=== PATIENT | female | born 1935 | race Caucasian/White ===

== ENCOUNTER 2019-11-23 09:40 | Emergency (ER) | payer MEDICARE, SELFPAY ==
[2019-11-23 10:00] VITALS: BP 152/60; PULSE 73; RESP 20; TEMP 36.8; O2SAT 98
--- NOTE | 2019-11-23 10:19 | ED.GENADULT ---
HPI - General Adult General Chief complaint: Upper Respiratory Infection Stated complaint: COUGH/CONGESTION Time Seen by Provider: 11/23/19 10:19 Source: patient and RN notes reviewed Mode of arrival: ambulatory Limitations: no limitations History of Present Illness HPI narrative: This is a 84 years old female presents to the office for an evaluation of cough and congestion for three weeks. Cough is very bothersome with chest tightness and thick mucus. Denies fever; however she reports feeling malaise and tired. Also reports she can't taste any food. She did not take any medication for her symptoms except Tylenol. She lives in an [facility] group home. Related Data Home Medications Medication Instructions Recorded Confirmed insulin glargine [Lantus Solostar 13 unit SUB-Q DAILY 11/23/19 11/23/19 U-100 Insulin] irbesartan 300 mg PO DAILY 11/23/19 11/23/19 latanoprost 1 drp OPHTHALMIC (EYE) HS 11/23/19 11/23/19 oxybutynin chloride 5 mg PO DAILY 11/23/19 11/23/19 pravastatin 10 mg PO DAILY 11/23/19 11/23/19 torsemide 50 mg PO QAM 11/23/19 11/23/19 Allergies Allergy/AdvReac Type Severity Reaction Status Date / Time ciprofloxacin Allergy Unknown Anxiety Verified 11/23/19 09:53 dexamethasone Allergy Unknown Anxiety Verified 11/23/19 09:53 hydrochlorothiazide Allergy Unknown Anxiety Verified 11/23/19 09:53 triamterene Allergy Unknown Anxiety Verified 11/23/19 09:53 Review of Systems Review of Systems: Narrative: CONSTITUTIONAL: Denies fever ENT: Symptoms began with head congestion; but not currently CARDIOVASCULAR: Denies chest pain RESPIRATORY: Reports cough with chest tightness on exertion GASTROINTESTINAL: Denies abdominal pain, nausea, vomiting GENITOURINARY: Denies urinary symptoms SKIN: Denies rash MUSCULOSKELETAL: Denies acute back pain NEUROLOGIC: Denies lightheaded. 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 Lumbar pain with radiation down right leg Mixed hyperlipidemia Nonrheumatic aortic (valve) stenosis Osteoporosis Post menopausal problems Type 2 diabetes mellitus with diabetic polyneuropathy Type 2 diabetes mellitus without complication, with senior living current use of insulin pump Family History Family History Grandparent Diabetes mellitus Father Hypertension Cerebrovascular accident Mother Family history of arthritis Acute myocardial infarction, Onset Age: 84 Other Family history of hearing loss Family history of osteoporosis Social History Social History Smoking status: Never smoker Second hand tobacco smoke exposure: No Smoking end date: 10/08/1957 Alcohol intake: current Comments At time of signature, I agree with nursing past medical, surgical, social and family history. There is no relevant family history pertinent to the presenting complaint. Exam Narrative: Exam Narrative: GENERAL: This is a well-nourished, well-developed patient, in no apparent distress. HEAD: normocephalic, atraumatic. EARS: External ears normal, auditory canals clear and without drainage, TMs normal without perforation. Hearing grossly intact. NOSE: External nose normal with no obvious nasal discharge, nares without redness, no rhinorrhea. THROAT: Mucous membranes moist, posterior pharynx clear. NECK: Neck supple, non-tender without lymphadenopathy, masses or thyromegaly. CARDIOVASCULAR: Regular rate and rhythm without murmurs, gallops, or rubs. RESPIRATORY: Course breath sound noted throughout with cough during deep breathing. Breath sounds equal bilaterally. No wheezes or use of accessory muscle. GASTROINTESTINAL: Abdomen soft, non-tender, nondistended. Bowel sounds are active. No hepato-splenomegaly, or palp
== END 2019-11-23 10:37 | disposition home or self-care (01) ==
PROVIDERS: Emergency Provider Nurse Practitioner; PCP Family Medicine
DX: J06.9 Acute upper respiratory infection, unspecified (principal); I10 Essential (primary) hypertension; R01.1 Cardiac murmur, unspecified; Z85.3 Personal history of malignant neoplasm of breast; E78.2 Mixed hyperlipidemia; M81.0 Age-related osteoporosis without current pathological fracture; E11.42 Type 2 diabetes mellitus with diabetic polyneuropathy; Z96.41 Presence of insulin pump (external) (internal); Z79.4 Long term (current) use of insulin
CPT/HCPCS: 99213; G0463

== ENCOUNTER 2019-12-08 12:23 | Outpatient (CLI) | payer MEDICARE, SELFPAY ==
--- NOTE | 2019-12-08 | ECHO_ITS ---
Patient Info Name: Sophia Webster Age: 84 years : 1935 Gender: Female Ht: 65 in Wt: 170 lbs BSA: 1.90 m2 HR: 61 bpm BP: 168 / 75 mmHg Heart Rhythm: Sinus Rhythm Exam Date: 12/08/2019 1:55 PM Exam Location: [facility] Patient Status: Outpatient Admit Date: 12/08/2019 Staff Ordering Physician: Jaun Winters DO Collection Clerk: Lashanda Kim RDCS Attending Provider: Jaun Winters DO Referring Physician: Singh MAGANA; Exam Type: CA echo doppler color flow Study Info Indications I35.0 - Nonrheumatic aortic (valve) stenosis Complete two-dimensional, color flow and Doppler transthoracic echocardiogram is performed. Summary 1. Left ventricular chamber dimension is normal. 2. Left ventricular systolic function is normal, estimated at 65-70%. 3. There is moderately increased left ventricular wall thickness. 4. The left ventricular diastolic function is grade I diastolic dysfunction. 5. Left atrial chamber dimension is mildly enlarged. 6. There is severe aortic valve sclerosis. 7. There is moderate aortic valve stenosis with a peak velocity of 329 cm/s, mean gradient of 22 mmHg, and aortic valve area of 1.1 cm2. 8. The mitral valve has moderately calcified annulus. 9. There is trace tricuspid valve regurgitation. 10. Moderate pulmonary hypertension, estimated pulmonary arterial systolic pressure is 54 mmHg. 11. There is trace pulmonic regurgitation. Left Ventricle Left ventricular chamber dimension is normal. Left ventricular systolic function is normal, estimated at 65-70%. There is moderately increased left ventricular wall thickness. The left ventricular diastolic function is grade I diastolic dysfunction. Right Ventricle Right ventricular chamber dimension is normal. Right ventricular systolic function is normal. Left Atria Left atrial chamber dimension is mildly enlarged. Right Atria Right atrial chamber dimension is normal. Aortic Valve The aortic valve is probable trileaflet. There is severe aortic valve sclerosis. There is moderate aortic valve stenosis with a peak velocity of 329 cm/s, mean gradient of 22 mmHg, and aortic valve area of 1.1 cm2. There is no aortic valve regurgitation. Pulmonic Valve There is trace pulmonic regurgitation. Mitral Valve The mitral valve has moderately calcified annulus. There is no mitral valve stenosis. There is no mitral valve regurgitation. Tricuspid Valve There is trace tricuspid valve regurgitation. Moderate pulmonary hypertension, estimated pulmonary arterial systolic pressure is 54 mmHg. Pericardium/Pleural There is no pericardial effusion. Inferior Vena Cava Normal inferior vena cava with >50% collapse upon inspiration consistent with normal right atrial pressure, 5 mmHg. Aorta The aortic root size at the sinus of Valsalva is normal. Left Ventricular Outflow Tract Name Value Normal LVOT 2D LVOT Diameter 1.7 cm LVOT Doppler LVOT Peak Gradient 7 mmHg LVOT Mean Gradient 4 mmHg LVOT VTI 33 cm LVOT VTI/AV VTI Ratio 0.4
== END 2019-12-08 12:24 | disposition home or self-care (01) ==
PROVIDERS: PCP Family Medicine; Visit Provider Internal Medicine Cardiovascular Disease
DX: I08.3 Combined rheumatic disorders of mitral, aortic and tricuspid valves (principal)
CPT/HCPCS: 93306

== ENCOUNTER 2020-03-25 11:07 | Outpatient (CLI) | payer MEDICARE, SELFPAY ==
[2020-03-25 11:49] LABS: Alanine Aminotransferase 20 U/L (4-35); Albumin Level 4.1 g/dL (3.5-5.1); Alkaline Phosphatase 69 U/L (38-126); Aspartate Amino Transferase 28 U/L (14-36); Bilirubin,Total 0.4 mg/dL (0.2-1.3); Blood Urea Nitrogen 60 mg/dL (7-17); Carbon Dioxide 33 mmol/L (22-30); Chloride 99 mmol/L (98-107); Estimated Glomerular Filt Rate 22; Glucose 137 mg/dL (65-105); Potassium 4.5 mmol/L (3.4-5.0); Sodium 137 mmol/L (137-145)
== END 2020-03-25 11:08 | disposition home or self-care (01) ==
LOC: ANHLAB 11:10
PROVIDERS: PCP Family Medicine; Visit Provider Internal Medicine Cardiovascular Disease
DX: E78.2 Mixed hyperlipidemia (principal)
CPT/HCPCS: 36415; 80053

== ENCOUNTER 2020-06-11 09:02 | Outpatient (CLI) | payer MEDICARE, SELFPAY ==
[2020-06-11 09:16] LABS: Basophils Percent Auto 0.6 % (0.2-1.2); Eosinophils Absolute Auto 0.2 K/mm3 (0-0.3); Eosinophils Percent Auto 2.6 % (0-4.4); Hematocrit 40.7 % (37.0-47.0); Immature Granulocyte Absolute 0.03 K/mm3 (0.00-0.031); Immature Granulocyte Percent A 0.5 % (0-0.5); Lymphocytes Absolute Auto 1.21 K/mm3 (0.9-3.2); Lymphocytes Percent Auto 18.5 % (18.3-44.2); Mean Corpuscular HGB Conc 31.9 g/dl (32-36); Mean Corpuscular Hemoglobin 28.3 pg (26-34); Mean Corpuscular Volume 88.5 fl (80-100); Mean Platelet Volume 10.3 fl (7.4-10.4); Monocytes Absolute Auto 0.6 K/mm3 (0.1-0.6); Monocytes Percent Auto 9.8 % (2.6-8.5); Neutrophils Absolute Auto 4.4 K/mm3 (1.3-6.7); Platelet Count Result 212 k/mm3 (150-375); Red Cell Distribution Width 14.5 % (11.5-14.5); White Blood Count 6.5 K/mm3 (4.5-10.0)
[2020-06-11 09:27] LABS: Potassium 4.3 mmol/L (3.4-5.0)
[2020-06-11 09:31] LABS: Alanine Aminotransferase 19 U/L (4-35); Alkaline Phosphatase 69 U/L (38-126); Anion Gap 5 mmol/L (8-16); Aspartate Amino Transferase 28 U/L (14-36); Bilirubin,Total 0.6 mg/dL (0.2-1.3); Blood Urea Nitrogen 58 mg/dL (7-17); Calcium 10.4 mg/dL (8.4-10.2); Carbon Dioxide 32 mmol/L (22-30); Chloride 100 mmol/L (98-107); Cholesterol 172 mg/dL (0-200); Estimated Glomerular Filt Rate 25; Glucose 130 mg/dL (65-105); HDL Direct 60 mg/dL; Sodium 137 mmol/L (137-145); Triglycerides 97 mg/dL (<150)
[2020-06-11 09:36] LABS: NT Pro B Type Natriuretic Pept 1570 PG/ML (5-100)
[2020-06-11 09:39] LABS: LDL Cholesterol Direct 67 mg/dL
[2020-06-11 10:13] LABS: Vitamin D 25 Hydroxy 43.6 ng/mL
== END 2020-06-11 09:03 | disposition home or self-care (01) ==
LOC: ANHLAB 09:02
PROVIDERS: PCP Family Medicine; Visit Provider Nurse Practitioner
DX: R06.02 Shortness of breath (principal); I10 Essential (primary) hypertension; E78.5 Hyperlipidemia, unspecified; E55.9 Vitamin D deficiency, unspecified
CPT/HCPCS: 36415; 80053; 80061; 82306; 83880; 85025

== ENCOUNTER 2020-06-15 12:03 | Outpatient (CLI) | payer MEDICARE, SELFPAY ==
[2020-06-15 12:49] LABS: NT Pro B Type Natriuretic Pept 1300 PG/ML (5-100)
== END 2020-06-15 12:04 | disposition home or self-care (01) ==
LOC: ANHLAB 12:06
PROVIDERS: PCP Family Medicine; Visit Provider Nurse Practitioner
DX: R06.00 Dyspnea, unspecified (principal)
CPT/HCPCS: 36415; 83880

== ENCOUNTER 2020-07-08 09:02 | Outpatient (CLI) | payer MEDICARE, SELFPAY ==
--- NOTE | ~2020-07-08 | NM_ITS ---
EXAMINATION: NM jaun stress w perfusion DATE: 07/08/2020 12:00 INDICATION: Chest pain. TECHNIQUE: Rest images were obtained following intravenous administration of 9.2 mCi Tc99m tetrofosmi n (Myoview). The patient was infused intravenously with Lexiscan (regadenoson). Then, 28.3 mCi Tc99m tetrofosmin (Myoview) was administered intravenously, and stress images were obtained. Data was recon structed into short axis and horizontal and vertical long axis SPECT images. Gated SPECT images were also obtained. COMPARISON: None. FINDINGS: There is a small, mild, fixed perfusion defect involving mid to basal inferolateral wall of left ventricle, consistent with infarct. No reversible component to suggest ischemia. There is no s egmental wall motion abnormality. Left ventricular ejection fraction measures 60%. IMPRESSION: 1. Small area of mild infarct involving mid to basal inferolateral wall of left ventricle. 2. Normal left ventricular ejection fraction measuring 60%. Reviewed, dictated and finalized at location A.
--- NOTE | 2020-07-08 09:34 | EST_ITS ---
Patient Info Name: Sophia Webster Age: 85 years : 1935 Gender: Female Ht: 65 in Wt: 175 lbs BSA: 1.93 m2 Exam Date: 07/08/2020 10:34 AM Exam Location: [facility] Stress Patient Status: Outpatient Admit Date: 07/08/2020 Staff Ordering Physician: Jaun Winters DO Attending Provider: Jaun Winters DO Exercise Technologist: Sofie Murcia RDCS Exercise Physician: Jaun Winters DO Exam Type: CA stress jaun w NM Study Info Indications R07.89 - Other chest pain R06.02 - Shortness of breath A regadenoson stress test was performed. Summary 1. 1. Negative lexiscan stress test for ischemic ST changes by ECG criteria. 2. 2. Baseline hypertension. 3. 3. Nuclear scan to follow and will be reported separately. Please correlate with it. 4. 4. Patient informed of the above results. Protocol: Lexiscan Stress ECG Details Stage: REST Duration (min): 10 min : 42 sec HR (bpm): 75 SBP (mmHg): 204 DBP (mmHg): 98 Stage: REST Duration (min): 21 min : 59 sec HR (bpm): 78 SBP (mmHg): 204 DBP (mmHg): 98 Stage: STAGE 1 Duration (min): 1 min : 0 sec HR (bpm): 100 SBP (mmHg): 218 DBP (mmHg): 85 Stage: RECOVERY Duration (min): 1 min : 0 sec HR (bpm): 97 SBP (mmHg): 195 DBP (mmHg): 91 Stage: RECOVERY Duration (min): 2 min : 0 sec HR (bpm): 92 SBP (mmHg): 195 DBP (mmHg): 91 Stage: RECOVERY Duration (min): 3 min : 0 sec HR (bpm): 91 SBP (mmHg): 185 DBP (mmHg): 95 Stage: RECOVERY Duration (min): 4 min : 0 sec HR (bpm): 90 SBP (mmHg): 185 DBP (mmHg): 95 Stage: RECOVERY Duration (min): 4 min : 56 sec HR (bpm): 97 SBP (mmHg): 189 DBP (mmHg): 92 Rest HR: 78 bpm Peak HR: 103 bpm Rest Sys BP: 204 mmHg Peak Sys BP: 218 mmHg Max Pred HR: 135 bpm % Max Pred HR: 76 % Target HR: 115 bpm Max RPP: 22,454 bpm*mmHg Termination Reason: Completed protocol Cardiac Symptoms: Shortness of breath, Headache Total Time: 1 min : 0 sec Rest Cano BP: 98 mmHg Peak Cano BP: 85 mmHg Total Dose: 0.4 mg Resting ECG Sinus rhythm, anteroseptal infarct, inferior infarct, age indeterminate. Stress ECG No ST changes. Arrhythmias PAC's. Report Signatures
== END 2020-07-08 09:03 | disposition home or self-care (01) ==
PROVIDERS: PCP Family Medicine; Visit Provider Internal Medicine Cardiovascular Disease
DX: R06.02 Shortness of breath (principal); R07.89 Other chest pain; I10 Essential (primary) hypertension
CPT/HCPCS: 78452; 93017; A9502; J2785

== ENCOUNTER 2020-08-11 10:19 | Outpatient (CLI) | payer MEDICARE, SELFPAY ==
--- NOTE | ~2020-08-11 | XR_ITS ---
EXAMINATION: XR lumbar spine 2-3V DATE: 08/11/2020 10:50 INDICATION: Low back pain TECHNIQUE: Anteroposterior and lateral views of the lumbar spine, and cone-down lateral view of the l umbosacral junction were obtained. COMPARISON: None. FINDINGS: There are 5 mm of retrolisthesis L2 on L3, 8 mm of anterolisthesis of L4 on L5, and 4 mm of anterolisthesis of L5 on S1. The vertebral body heights are maintained. There is advanced loss of in tervertebral disc space height at L2-3, L4-5, and L5-S1. Moderate loss of intervertebral disc space h eight is seen at L3-4. No fracture is identified. Degenerative osteophytes project from the anterior endplates of multiple vertebral bodies. There is calcified atherosclerosis. A moderate volume of colo darline stool is noted. IMPRESSION: 1. Severe lumbar spondylosis without evidence of acute findings. Reviewed, dictated and finalized at location A. ORK ARCHITECT
== END 2020-08-11 10:20 | disposition home or self-care (01) ==
LOC: ANHIMG 10:26
PROVIDERS: PCP Family Medicine; Visit Provider Nurse Practitioner Family
DX: M47.896 Other spondylosis, lumbar region (principal)
CPT/HCPCS: 72100

== ENCOUNTER 2020-08-15 08:11 | Emergency (ER) | payer MEDICARE, SELFPAY ==
[2020-08-15 08:08] VITALS: BP 184/92; PULSE 89; RESP 18; TEMP 36.8; O2SAT 96
[2020-08-15 08:36] LABS: Basophils Percent Auto 0.2 % (0.2-1.2); Hematocrit 40.3 % (37.0-47.0); Hemoglobin 13.2 g/dL (12.0-15.0); Immature Granulocyte Absolute 0.09 K/mm3 (0.00-0.031); Immature Granulocyte Percent A 0.7 % (0-0.5); Lymphocytes Absolute Auto 0.67 K/mm3 (0.9-3.2); Lymphocytes Percent Auto 5.2 % (18.3-44.2); Mean Corpuscular HGB Conc 32.8 g/dl (32-36); Mean Corpuscular Hemoglobin 28.3 pg (26-34); Mean Corpuscular Volume 86.3 fl (80-100); Mean Platelet Volume 10.3 fl (7.4-10.4); Monocytes Absolute Auto 0.8 K/mm3 (0.1-0.6); Monocytes Percent Auto 5.9 % (2.6-8.5); Neutrophils Absolute Auto 11.3 K/mm3 (1.3-6.7); Platelet Count Result 259 k/mm3 (150-375); Red Blood Count 4.67 M/mm3 (4.2-5.4); Red Cell Distribution Width 14.4 % (11.5-14.5); White Blood Count 12.9 K/mm3 (4.5-10.0)
[2020-08-15 08:46] LABS: Alanine Aminotransferase 21 U/L (4-35); Albumin Level 3.7 g/dL (3.5-5.1); Alkaline Phosphatase 99 U/L (38-126); Anion Gap 12 mmol/L (8-16); Aspartate Amino Transferase 29 U/L (14-36); Bilirubin,Total 0.7 mg/dL (0.2-1.3); Blood Urea Nitrogen 60 mg/dL (7-17); Calcium 9.9 mg/dL (8.4-10.2); Carbon Dioxide 28 mmol/L (22-30); Chloride 97 mmol/L (98-107); Estimated CRCL calculation 19 ml/min; Estimated Glomerular Filt Rate 24; Glucose 235 mg/dL (65-105); Lipase 34 U/L (23-300); Sodium 137 mmol/L (137-145)
[2020-08-15 08:52] VITALS: BP 182/75; PULSE 74; RESP 18; O2SAT 98
[2020-08-15 09:36] LABS: Add Urine Microscopic? YES; Appearance Urine Turbid (Clear); Bacteria Urine 2+ /hpf; Bilirubin Urine Negative (Negative); Blood Urine 1+ (Negative); Color Urine Yellow (Yellow); Glucose Urine UA Negative (Negative); Ketones Urine Trace mg/dL (Negative); Leukocyte Esterase Ur 3+ LEU/UL (Negative); Mucus Urine Rare /lpf; Nitrate Urine Negative (Negative); Protein Urine 1+ mg/dL (Negative); Specific Grav Ur 1.013 (1.001-1.035); Squamous Epithelial Cell Urine Many /hpf (Few); Urobilinogen Urine Negative mg/dL (<2.0); WBC Clumps Urine Present /HPF; WBC Urine >75 /hpf
[2020-08-15 10:25] VITALS: BP 183/80; PULSE 79; RESP 18; O2SAT 100
--- NOTE | 2020-08-15 10:31 | ED.ABDPAIN ---
HPI - Abdominal Pain General Chief Complaint: Abdominal Pain Stated Complaint: abd pain Time Seen by Provider: 08/15/20 08:19 History of Present Illness HPI narrative: Patient is an 85-year-old female who presents ER with crampy lower abdominal pain. Began 5 days ago and has increased to include her entire abdomen. Associate with some mild nausea and vomiting. Last vomiting was this morning. Also had 1 loose stool. Reports she had issues like this several years ago where she may have had Crohn's but she has never had any additional issues and she had stopped taking the medication 18 years ago. She reporting no fevers or chills or sweats. Related Data Home Medications Medication Instructions Recorded Confirmed latanoprost 1 drp OPHTHALMIC (EYE) HS 11/23/19 06/08/20 insulin lispro 100 unit/mL See Rx Instructions .ROUTE .COMPLEX 12/20/19 06/08/20 subcutaneous pen calcium carbonate-vit D3-min 1 tablet PO BID 08/15/20 [Calcium-Vitamin D] coenzyme Q10 [Co Q-10] 20 mg PO ONCE 08/15/20 insulin glargine [Lantus Solostar 13 unit SUB-Q QPM 08/15/20 U-100 Insulin] polyethylene glycol 3350 [Miralax] 17 g PO DAILY 08/15/20 torsemide 200 mg PO BID 08/15/20 Allergies Allergy/AdvReac Type Severity Reaction Status Date / Time ciprofloxacin Allergy Unknown Anxiety Verified 08/15/20 08:15 dexamethasone Allergy Unknown Anxiety Verified 08/15/20 08:15 hydrochlorothiazide Allergy Unknown Anxiety Verified 08/15/20 08:15 triamterene Allergy Unknown Anxiety Verified 08/15/20 08:15 Review of Systems Review of Systems: All systems reviewed & are unremarkable except as noted in HPI and below Constitutional: Constitutional: Denies chills, Denies fever(s) and Denies weakness ENT: Denies nasal congestion and Denies sore throat Cardiovascular: Cardiovascular: Denies chest pain Gastrointestinal: Gastrointestinal: Reports abdominal pain, Reports bloating, Reports diarrhea, Reports nausea and Reports vomiting PMFSH Past Medical History Medical History (Updated 08/15/20 @ 11:27 by Shailesh Tate MD) Heart murmur 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 Lumbar pain with radiation down right leg Mixed hyperlipidemia Nonrheumatic aortic (valve) stenosis Osteoporosis Overflow incontinence Post menopausal problems Type 2 diabetes mellitus with diabetic polyneuropathy Type 2 diabetes mellitus without complication, with detention current use of insulin pump Family History Family History Grandparent Diabetes mellitus Father Hypertension Cerebrovascular accident Mother Family history of arthritis Acute myocardial infarction, Onset Age: 84 Other Family history of hearing loss Family history of osteoporosis Social History Social History Smoking status: Never smoker Second hand tobacco smoke exposure: No Alcohol intake: current Substance use: never Gender identity (if verbalized by the patient): Female Spiritual care concerns: No Agree to blood products: Yes Exam Narrative: Exam Narrative: GENERAL: Well-appearing, well-nourished, and in no acute distress. HEAD: Normocephalic, atraumatic. ENT: Mucous membranes moist. CHEST: Clear to auscultation. No respiratory distress. HEART: Regular rate and rhythm. Normal peripheral pulses. ABDOMEN: Soft, nontender, nondistended. EXTREMITIES: Normal range of motion. No edema. NEURO: Alert and oriented x3. PSYCH: Normal mood and affect. Course Course Emergency Course: Informed of results. Hydrated with IV fluid and received ceftriaxone IV. Discharge home with oral antibiotics. Also will prescribe antiemetics. Vital Signs Vital signs: Vital Signs Temperature 98.3 F 08/15/20 08:08 Pulse Rate 89 08/15/20 08:08 Respiratory Rate 18 08/15/20 08:08 Blood Pressure 184/92 H 08/15/20 08:08 Pulse Oximetry 96
[2020-08-15] MEDS: SODIUM CHLORIDE 0.9% IV 1,000 ML 999 ML IV CONT (11:12)
[2020-08-15 11:19] VITALS: BP 181/67; PULSE 80; RESP 18; O2SAT 97
[2020-08-15 12:19] VITALS: BP 185/78; PULSE 76; RESP 18; O2SAT 95
== END 2020-08-15 12:21 ==
PROVIDERS: Emergency Provider Emergency Medicine; PCP Family Medicine
DX: N39.0 Urinary tract infection, site not specified (principal); E11.42 Type 2 diabetes mellitus with diabetic polyneuropathy; Z79.4 Long term (current) use of insulin; Z85.3 Personal history of malignant neoplasm of breast; E78.2 Mixed hyperlipidemia; M81.0 Age-related osteoporosis without current pathological fracture; I35.0 Nonrheumatic aortic (valve) stenosis
CPT/HCPCS: 36415; 80053; 81001; 83690; 85025; 87077; 87086; 87088; 87186; 96361; 96365; 99284; J0696; J7030

== ENCOUNTER 2020-08-19 16:55 | Inpatient (IN) | payer MEDICARE, SELFPAY ==
--- NOTE | ~2020-08-19 | CT_ITS ---
EXAMINATION: CT abdomen pelvis wo con DATE: 08/19/2020 18:14 INDICATION: Abdominal pain TECHNIQUE: Computed tomography (CT) of the abdomen and pelvis was performed without intravenous contr ast. Automated exposure control and iterative reconstruction technique were employed. Exam dose: 646 .38 mGy-cm total exam DLP. COMPARISON: 08/25/2019, 08/21/2018 bilateral digital screening mammogram examinations FINDINGS: There is mild discoid atelectasis and/or scarring at the lung bases. There is a 5.5 cm right breast mass lesion; this is reportedly stable since 07/06/2016, likely a benig n postoperative seroma. Normal heart size. Coronary artery calcification Very small sliding hiatal hernia. There are multiple small stones in the dependent aspect of the gallbladder. No gallbladder wall thick ening or pericholecystic fluid or inflammation. The liver, spleen, pancreas are unremarkable. No bile duct or pancreatic duct dilatation. 1.6 x 2.2 cm probable right adrenal adenoma. 5 cm upper pole left renal cyst. Probable 11 mm lateral mid left renal cyst. 2.5 mm and adjacent pinpoint nonobstructing left renal calculi. There is moderate diffuse urinary bladder wall thickening. Status post hysterectomy. There is prominent fecal material in the rectosigmoid area. No bowel obstruction, bowel wall thickening or pneumoperitoneum. There is atherosclerotic calcification of the abdominal aorta and branches. No abdominal aortic aneur ysm. No intraperitoneal or retroperitoneal or pelvic mass lesion or adenopathy or ascites. There is degenerative change of the thoracic and lumbar spine, including severe degenerative disc dis ease and mild retrolisthesis at L2-3, moderately severe degenerative disc disease lumbar at L3-4 and L4-5, grade 1 anterolisthesis at L4-5. There is moderately severe degenerative disc disease and grade 1 anterolisthesis at L5-S1. IMPRESSION: Chronic right breast seroma Cholelithiasis Probable right adrenal adenoma Bilateral renal cysts 2.5 mm and adjacent pinpoint nonobstructing left renal calculi Status post hysterectomy Extensive degenerative changes of the lumbar spine show Reviewed, dictated and finalized at [facility]. Reviewed, dictated and finalized at [facility]. 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
--- NOTE | ~2020-08-19 | XR_ITS ---
EXAMINATION: XR abdomen/kub 1V INDICATION: Abdominal distention TECHNIQUE: Supine views of the abdomen were obtained on 2 radiographs. COMPARISON: CT, 08/19/2020 FINDINGS: There is unchanged large volume of stool in the rectum. No dilated loops of bowel are ident ified. No free intraperitoneal gas is seen. There is severe lumbar spondylosis. Calcified atheroscler osis is noted. IMPRESSION: 1. Unchanged fecal impaction of the rectum Reviewed, dictated and finalized at [facility]. 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
[2020-08-19 16:54] VITALS: BP 223/105; PULSE 77; RESP 17; TEMP 36.9; O2SAT 98
--- NOTE | 2020-08-19 17:05 | ECG_ITS ---
Measurements Intervals [place] Rate: 73 P: 5 OK: 133 QRS: -53 QRSD: 94 T: 0 QT: 336 QTc: 372 Interpretive Statements SINUS RHYTHM LEFT AXIS DEVIATION EXTENSIVE ANTERIOR INFARCT, AGE INDETERMINATE INFERIOR INFARCT, AGE INDETERMINATE BORDERLINE ST-T WAVE ABNORMALITY- HIGH LATERAL LEADS BASELINE ARTIFACT- I, AVR, AVL ABNORMAL ECG Electronically Signed On 08-20-2020 9:02:30 DONOR RELATIONS MANAGER by Jaun Winters D.O.
[2020-08-19 17:20] LABS: Basophils Percent Auto 0.2 % (0.2-1.2); Eosinophils Percent Auto 0.2 % (0-4.4); Hematocrit 47.2 % (37.0-47.0); Hemoglobin 15.7 g/dL (12.0-15.0); Immature Granulocyte Absolute 0.05 K/mm3 (0.00-0.031); Immature Granulocyte Percent A 0.4 % (0-0.5); Lymphocytes Absolute Auto 0.74 K/mm3 (0.9-3.2); Lymphocytes Percent Auto 6.2 % (18.3-44.2); Mean Corpuscular HGB Conc 33.3 g/dl (32-36); Mean Corpuscular Hemoglobin 28.8 pg (26-34); Mean Corpuscular Volume 86.6 fl (80-100); Mean Platelet Volume 10.3 fl (7.4-10.4); Monocytes Absolute Auto 0.7 K/mm3 (0.1-0.6); Monocytes Percent Auto 6.2 % (2.6-8.5); Neutrophils Absolute Auto 10.3 K/mm3 (1.3-6.7); Neutrophils Percent Auto 86.8 % (45.5-73.1); Platelet Count Result 279 k/mm3 (150-375); Red Blood Count 5.45 M/mm3 (4.2-5.4); Red Cell Distribution Width 13.8 % (11.5-14.5); White Blood Count 11.9 K/mm3 (4.5-10.0)
[2020-08-19] MEDS: SODIUM CHLORIDE 0.9% IV 1,000 ML 999 ML IV CONT (17:25)
[2020-08-19] MEDS: MORPHINE SULFATE (*CRX) 4 MG/ML INJ IV PUSH (17:25)
[2020-08-19] MEDS: FAMOTIDINE 20 MG/2 ML VIAL IV PUSH (17:25)
[2020-08-19] MEDS: ONDANSETRON INJ 4 MG/2 ML VIAL IV PUSH (17:25)
[2020-08-19 17:32] LABS: Alanine Aminotransferase 22 U/L (4-35); Albumin Level 4.4 g/dL (3.5-5.1); Alkaline Phosphatase 116 U/L (38-126); Anion Gap 9 mmol/L (8-16); Aspartate Amino Transferase 32 U/L (14-36); Bilirubin,Total 0.8 mg/dL (0.2-1.3); Blood Urea Nitrogen 38 mg/dL (7-17); Carbon Dioxide 35 mmol/L (22-30); Chloride 95 mmol/L (98-107); Estimated CRCL calculation 22 ml/min; Estimated Glomerular Filt Rate 29; Glucose 202 mg/dL (65-105); Lipase 116 U/L (23-300); Potassium 3.8 mmol/L (3.4-5.0); Sodium 139 mmol/L (137-145)
[2020-08-19 17:44] LABS: Add Urine Microscopic? YES; Appearance Urine Clear (Clear); Bilirubin Urine Negative (Negative); Blood Urine 1+ (Negative); Color Urine Yellow (Yellow); Glucose Urine UA Negative (Negative); Ketones Urine Trace mg/dL (Negative); Leukocyte Esterase Ur Negative LEU/UL (Negative); Nitrate Urine Negative (Negative); Protein Urine 2+ mg/dL (Negative); Specific Grav Ur 1.012 (1.001-1.035); Squamous Epithelial Cell Urine Rare /hpf (Few); Urobilinogen Urine Negative mg/dL (<2.0); WBC Urine 0-3 /hpf
[2020-08-19 17:45] LABS: Troponin I 0.066 ng/mL (0.000-0.034)
[2020-08-19 18:30] VITALS: BP 224/84; PULSE 73; RESP 25; O2SAT 94
[2020-08-19 18:47] LABS: Lactic Acid Reflex 1.7 mmol/L (0.7-2.1)
[2020-08-19 20:10] VITALS: BP 202/82; PULSE 80; RESP 20; TEMP 36.7; O2SAT 96; BMI 28.5
--- NOTE | 2020-08-19 20:14 | ED.ABDPAIN ---
HPI - Abdominal Pain General Chief Complaint: Abdominal Pain Stated Complaint: ABD PAIN Time Seen by Provider: 08/19/20 16:58 History of Present Illness HPI narrative: Patient is a 85-year-old female who presents the emergency department with chief complaint of abdominal pain. The patient reports that she was recently seen in the emergency department and treated for a UTI. The patient states she is continual and had nausea she did have vomiting initially and now she has difficulty drinking and feels extremely uncomfortable throughout her abdomen. The patient states that the symptoms are not improved by anything and she is being grabbed worse. Related Data Home Medications Medication Instructions Recorded Confirmed latanoprost 1 drp OPHTHALMIC (EYE) HS 11/23/19 06/08/20 insulin lispro 100 unit/mL See Rx Instructions .ROUTE .COMPLEX 12/20/19 06/08/20 subcutaneous pen calcium carbonate-vit D3-min 1 tablet PO BID 08/15/20 [Calcium-Vitamin D] coenzyme Q10 [Co Q-10] 20 mg PO ONCE 08/15/20 insulin glargine [Lantus Solostar 13 unit SUB-Q QPM 08/15/20 U-100 Insulin] polyethylene glycol 3350 [Miralax] 17 g PO DAILY 08/15/20 torsemide 200 mg PO BID 08/15/20 Allergies Allergy/AdvReac Type Severity Reaction Status Date / Time ciprofloxacin Allergy Unknown Anxiety Verified 08/19/20 17:36 dexamethasone Allergy Unknown Anxiety Verified 08/19/20 17:36 hydrochlorothiazide Allergy Unknown Anxiety Verified 08/19/20 17:36 triamterene Allergy Unknown Anxiety Verified 08/19/20 17:36 Review of Systems Review of Systems: Narrative: CONSTITUTIONAL: Denies fever, chills, or sweats. EYES: Denies visual changes, redness, or discharge. ENT: Denies rhinorrhea, congestion, sore throat, or otalgia. CARDIOVASCULAR: Denies chest pain, palpitations, or edema. RESPIRATORY: Denies cough or dyspnea. GASTROINTESTINAL: Denies abdominal pain, nausea, vomiting, or diarrhea. GENITOURINARY: Denies dysuria or hematuria. SKIN: Denies rash or itching. MUSCULOSKELETAL: Denies back pain, joint pain, or myalgia. NEUROLOGIC: Denies headache, numbness, or weakness. PSYCHIATRIC: Denies anxiety or depression. 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 Lumbar pain with radiation down right leg Mixed hyperlipidemia Nonrheumatic aortic (valve) stenosis Osteoporosis Overflow incontinence Post menopausal problems Type 2 diabetes mellitus with diabetic polyneuropathy Type 2 diabetes mellitus without complication, with snf current use of insulin pump Family History Family History Grandparent Diabetes mellitus Father Hypertension Cerebrovascular accident Mother Family history of arthritis Acute myocardial infarction, Onset Age: 84 Other Family history of hearing loss Family history of osteoporosis Social History Social History Smoking status: Never smoker Second hand tobacco smoke exposure: No Alcohol intake: current Substance use: never Gender identity (if verbalized by the patient): Female Spiritual care concerns: No Agree to blood products: Yes Exam Narrative: Exam Narrative: GENERAL: Well-appearing, well-nourished, and in no acute distress. HEAD: Normocephalic, atraumatic. EYES: PERRLA and EOMI. ENT: Nares clear, no rhinorrhea or epistaxis. Mucous membranes moist. NECK: Supple. CHEST: Clear to auscultation. No respiratory distress. HEART: Regular rate and rhythm. No murmur heard. Normal peripheral pulses. ABDOMEN: Soft, diffuse mild tenderness, nondistended, normal active bowel sounds. EXTREMITIES: Normal range of motion. No edema. SKIN: Warm, dry, no rash. NEURO: No focal defic
--- NOTE | 2020-08-19 20:19 | PM.IMHP ---
H&P: HPI History of Present Illness Date/Time: 08/19/20 20:19 Chief complaint: Dehydration Narrative: Sophia Webster is a 85 year old female with PMHx significant for HTN, CKD, T2DM. Patient presented to ED due to abdominal pain, n/v/diarrhea, that started roughly 2 weeks ago, she went to see the doctor and was found to have a UTI was sent home on Keflex but returned to ED today due to nausea and dry heaving unable to eat has been trying some peaches, apple sauce and toast at home. Had diffuse abdominal pain as well once the antibiotic was started she had stomach upset. No fevers, no rigors, no chills, no cough, no sputum production, no pain or burning with urination, no tenesmus. Preliminary work up was low yielding, a repeat UA showed no infection, CT abd/pel unremarkable for acute abnormalities. Patient's SBP in the ED was in the 230's, she has not been able to take her home meds. Denies changes on vision but feels lightheaded upon standing, no headaches. Review of Systems Review of Systems: Narrative: Abdominal pain, nausea, dry heaving, lightheadedness upon standing. Constitutional: Comments: no fevers, no rigors, no chills. Eyes: Comments: No blurry vision. ENT: Comments: no ear ache, no throat pain, no nasal congestion or discharge. Cardiovascular: Comments: no leg swelling, no pnd, no orthopnea. Respiratory: Comments: no sob, no cough, no sputum production Gastrointestinal: Comments: nausea,dry heaving, diarrhea,abdominal pain diffusely localized. Musculoskeletal: Comments: no joint pain, no joint swelling. Integumentary/Breasts: Comments: no rashes. 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 Family History Family History Grandparent Diabetes mellitus Father Hypertension Cerebrovascular accident Mother Family history of arthritis Acute myocardial infarction, Onset Age: 84 Other Family history of hearing loss Family history of osteoporosis Social History Social History Smoking status: Never smoker Second hand tobacco smoke exposure: No Alcohol intake: current Drinks per week: 1 Substance use: never Substance use type: does not use Gender identity (if verbalized by the patient): Female Spiritual care concerns: No Agree to blood products: Yes Meds Home Medications and Allergies Home Medications Medication Instructions Recorded Confirmed Type latanoprost 1 drp OPHTHALMIC (EYE) HS 11/23/19 08/19/20 History insulin lispro 100 unit/mL See Rx Instructions .ROUTE .COMPLEX 12/20/19 08/19/20 History subcutaneous pen pravastatin 10 mg tablet 10 mg PO QPM #90 tablet 03/25/20 08/19/20 Rx pen needle, diabetic 31 gauge x #400 each 06/03/20 08/19/20 Rx 12/21 blood sugar diagnostic #400 each 06/04/20 08/19/20 Rx oxybutynin chloride 5 mg tablet 5 mg PO DAILY #90 tablet 06/04/20 08/19/20 Rx lidocaine 5 % topical patch 1 patch TOPICAL DAILY #30 each 06/08/20 08/19/20 Rx calcium carbonate-vit D3-min 1 tablet PO BID 08/15/20 08/19/20 History [Calcium-Vitamin D] cephalexin [Keflex] 500 mg PO Q12H #14 cap 08/15/20 08/19/20 Rx coenzyme Q10 [Co Q-10] 20 mg PO DAILY 08/15/20 08/19/20 History insulin glargine [Lantus Solostar 8 unit SUB-Q QPM 08/15/20 08/19/20 History U-100 Insulin] ondansetron 4 mg PO Q6H PRN #10 tablet 08/15/20 08/19/20 Rx madhuri
[2020-08-19] MEDS: ASPIRIN 81 MG CHEWABLE TABLET 324 MG PO (21:26)
[2020-08-19 21:43] LABS: Troponin I 0.059 ng/mL (0.000-0.034)
--- NOTE | 2020-08-19 22:19 | ADMGEN ---
This patient, Sophia Webster, was admitted to 2 Medical Room 260-. Patient/family oriented to hospital policies and general routines including ID bracelet, bed and alarms, visiting hours, pain management, procedures, bathroom and other care routines, personal items, smoking policy, room service/diet, and visiting hours. Information on how to activate the Rapid Response Team has been discussed. Patient/Family are encouraged to report perceived risks to care and to ask questions if they do not understand what they are told or what they should do.
[2020-08-19] MEDS: SODIUM CHLORIDE 0.45% 1,000 ML 75 ML IV CONT (22:30)
[2020-08-19 23:29] VITALS: PULSE 78
[2020-08-20] VITALS (10 sets, daily range): BP systolic 126–172; BP diastolic 61–79; PULSE 63–95; RESP 16–18; TEMP 36.4–36.6; O2SAT 92–100
[2020-08-20] MEDS: HEPARIN SODIUM 5,000 UNITS/ML VIAL 5000 UNITS SUB-Q ×3 (00:11→21:26)
[2020-08-20] MEDS: ONDANSETRON INJ 4 MG/2 ML VIAL IV PUSH (00:11)
[2020-08-20] MEDS: hydrALAZINE HCL 20 MG/ML VIAL 10 MG IV PUSH (00:11)
[2020-08-20 00:27] LABS: Troponin I 0.069 ng/mL (0.000-0.034)
[2020-08-20 01:20] LABS: Glucose Point of Care 202 (65-105)
[2020-08-20 05:37] LABS: Basophils Percent Auto 0.2 % (0.2-1.2); Eosinophils Absolute Auto 0.1 K/mm3 (0-0.3); Eosinophils Percent Auto 0.5 % (0-4.4); Hematocrit 40.8 % (37.0-47.0); Hemoglobin 13.2 g/dL (12.0-15.0); Immature Granulocyte Absolute 0.07 K/mm3 (0.00-0.031); Immature Granulocyte Percent A 0.6 % (0-0.5); Lymphocytes Absolute Auto 0.82 K/mm3 (0.9-3.2); Lymphocytes Percent Auto 6.6 % (18.3-44.2); Mean Corpuscular HGB Conc 32.4 g/dl (32-36); Mean Corpuscular Hemoglobin 28.5 pg (26-34); Mean Corpuscular Volume 88.1 fl (80-100); Mean Platelet Volume 10.3 fl (7.4-10.4); Monocytes Absolute Auto 0.9 K/mm3 (0.1-0.6); Monocytes Percent Auto 7.4 % (2.6-8.5); Neutrophils Absolute Auto 10.5 K/mm3 (1.3-6.7); Neutrophils Percent Auto 84.7 % (45.5-73.1); Platelet Count Result 237 k/mm3 (150-375); Red Blood Count 4.63 M/mm3 (4.2-5.4); Red Cell Distribution Width 13.7 % (11.5-14.5); White Blood Count 12.4 K/mm3 (4.5-10.0)
[2020-08-20 05:51] LABS: Potassium 3.5 mmol/L (3.4-5.0)
[2020-08-20 05:56] LABS: Anion Gap 5 mmol/L (8-16); Blood Urea Nitrogen 37 mg/dL (7-17); Calcium 8.7 mg/dL (8.4-10.2); Carbon Dioxide 34 mmol/L (22-30); Chloride 98 mmol/L (98-107); Estimated CRCL calculation 25 ml/min; Estimated Glomerular Filt Rate 33; Glucose 185 mg/dL (65-105); Sodium 137 mmol/L (137-145)
--- NOTE | 2020-08-20 07:16 | ECG_ITS ---
Measurements Intervals [place] Rate: 79 P: -1 WV: 133 QRS: -50 QRSD: 92 T: 28 QT: 336 QTc: 386 Interpretive Statements SINUS RHYTHM ATRIAL AND VENTRICULAR PREMATURE COMPLEXES VOLTAGE CRITERIA FOR LVH ANTEROSEPTAL INFARCT, AGE INDETERMINATE INFERIOR INFARCT, AGE INDETERMINATE BORDERLINE T WAVE ABNORMALITY- HIGH LATERAL LEADS ABNORMAL ECG Electronically Signed On 08-20-2020 13:29:25 QUALITY CONTROL LEAD by Jaun Winters D.O.
[2020-08-20 07:53] LABS: Glucose Point of Care 183 (65-105)
[2020-08-20] MEDS: INSULIN ASPART (*BKC) 100 UNITS/ML SUB-Q ×3 (07:57→17:35)
[2020-08-20] MEDS: ONDANSETRON HCL ODT 4 MG TABLET PO (08:03)
[2020-08-20] MEDS: OXYBUTYNIN CHLORIDE 5 MG TABLET PO (09:15)
[2020-08-20] MEDS: TORSEMIDE 20 MG TABLET PO ×2 (09:15→17:35)
[2020-08-20 11:45] LABS: Glucose Point of Care 201 (65-105)
[2020-08-20] MEDS: traMADol HCL (*CRX) 50 MG TABLET PO (12:23)
--- NOTE | 2020-08-20 13:24 | PM.IMPN ---
Progress Note: A&P Assessment and Plan (1) Acute dehydration: Code(s): E86.0 - Dehydration Status: Acute Assessment and Plan: Patient received fluids in ED. Will saline lock for now. Push po fluids as tolerated. Patient with SBP =200 Monitor I/O's daily Daily labs Clear liquid diet advance as tolerated. 08/20/20 13:24 Patient is 85 year female with history of hypertension presented emergency department with a complaint of abdominal pain, initially patient was seen by her primary care physician was diagnosed with UTI and started on oral antibiotics however upon taking the antibiotics her abdominal pain got worse and developed nausea and vomiting presented emergency department further evaluation, this morning patient states feeling little better compared to when she arrived, was able to eat little bit and a pain is also better, she states she would like to sit in the chair, and would like to participate in physical therapy, I have spoke to patient's nurse will have patient sit in the chair and have PT OT evaluate the patient and further recommendation to follow, repeat UA in the emergency department is clean, CT scan of abdomen did not show any acute injury. Upon arrival to emergency department patient's systolic blood pressure was over 200 as patient had not taken her blood pressure medication due to abdominal pain and nausea and vomiting, we have resumed patient home regimen will continue to monitor patient blood pressure is trending down, and with no complaint of chest pain dizziness or palpitation (2) Chronic kidney disease (CKD) stage G3b/A1, moderately decreased glomerular filtration rate (GFR) between 30-44 mL/min/1.73 square meter and albuminuria creatinine ratio less than 30 mg/g: Code(s): N18.3 - Chronic kidney disease, stage 3 (moderate) Status: Acute Assessment and Plan: Bun/Cr is currently at patient's baseline Avoid Nephrotoxins BP goal 130/80 Continue Irbesartan Hydralazine iv prn Daily BMP (3) Hypertensive urgency: Code(s): I16.0 - Hypertensive urgency Status: Acute Assessment and Plan: Suspect as a result of patient not been able to tolerate po. Re start home meds Judicious normalization of BP Continue to monitor (4) Abdominal pain: Code(s): R10.9 - Unspecified abdominal pain Status: Acute Assessment and Plan: CT abd/pel reviewed No acute abnormalities seen (5) Nausea alone: Code(s): R11.0 - Nausea Status: Acute Assessment and Plan: Improved likely secondary to antibiotic Supportive care (6) Lightheadedness: Code(s): R42 - Dizziness and giddiness Status: Acute Assessment and Plan: Likely secondary to uncontrolled HTN and dehydration. Bed rest Supportive care Will consider CT head if persistent (7) UTI (urinary tract infection): Code(s): N39.0 - Urinary tract infection, site not specified Status: Acute Assessment and Plan: Repeat Ua is clean Discontinued antibiotics Subjective Date/time seen: 08/20/20 13:24 Patient is 85 year female with history of hypertension presented emergency department with a complaint of abdominal pain, initially patient was seen by her primary care physician was diagnosed with UTI and started on oral antibiotics however upon taking the antibiotics her abdominal pain got worse and developed nausea and vomiting presented emergency department further evaluation, this morning patient states feeling little better compared to when she arrived, was able to eat little bit and a pain is also better, she states she would like to sit in the chair, and would like to participate in physical therapy, I have spoke to patient's nurse will have patient sit in the chair and have PT OT evaluate the patient and further recommendation to follow, repeat UA in the emergency department is clean, CT scan of abdomen did not show any acute injury. Upon arrival to emergency department erlin
[2020-08-20 17:01] LABS: Glucose Point of Care 234 (65-105)
[2020-08-20] MEDS: PRAVASTATIN SODIUM 10 MG TABLET PO (17:39)
[2020-08-20] MEDS: INSULIN GLARGINE (*BKC) 100 UNITS/ML 8 UNITS SUB-Q (21:28)
[2020-08-20] MEDS: IRBESARTAN 150 MG TABLET 300 MG PO (21:29)
[2020-08-20] MEDS: LATANOPROST 0.005% OP SOLN 2.5 ML BTL 1 DROP EACH EYE (21:30)
[2020-08-20 21:36] LABS: Glucose Point of Care 96 (65-105)
[2020-08-21] VITALS (9 sets, daily range): BP systolic 146–184; BP diastolic 62–77; PULSE 57–87; RESP 18; TEMP 36.1–37; O2SAT 96–100
[2020-08-21] MEDS: ACETAMINOPHEN 325 MG TABLET 650 MG PO ×2 (00:17→23:49)
[2020-08-21 07:40] LABS: Glucose Point of Care 136 (65-105)
[2020-08-21] MEDS: INSULIN ASPART (*BKC) 100 UNITS/ML SUB-Q ×3 (08:05→16:55)
[2020-08-21] MEDS: TORSEMIDE 20 MG TABLET PO ×2 (08:11→16:56)
[2020-08-21] MEDS: HEPARIN SODIUM 5,000 UNITS/ML VIAL 5000 UNITS SUB-Q ×2 (08:27→21:01)
[2020-08-21 11:52] LABS: Glucose Point of Care 282 (65-105)
[2020-08-21 12:50] LABS: Hematocrit 42.3 % (37.0-47.0); Hemoglobin 13.7 g/dL (12.0-15.0); Mean Corpuscular HGB Conc 32.4 g/dl (32-36); Mean Corpuscular Hemoglobin 28.5 pg (26-34); Mean Corpuscular Volume 88.1 fl (80-100); Mean Platelet Volume 10.4 fl (7.4-10.4); Platelet Count Result 240 k/mm3 (150-375); Red Cell Distribution Width 14.1 % (11.5-14.5)
[2020-08-21 12:59] LABS: Anion Gap 6 mmol/L (8-16); Blood Urea Nitrogen 47 mg/dL (7-17); Calcium 8.9 mg/dL (8.4-10.2); Carbon Dioxide 35 mmol/L (22-30); Chloride 91 mmol/L (98-107); Estimated CRCL calculation 21 ml/min; Estimated Glomerular Filt Rate 27; Glucose 269 mg/dL (65-105); Potassium 3.7 mmol/L (3.4-5.0); Sodium 132 mmol/L (137-145)
[2020-08-21 13:27] LABS: Magnesium 1.9 mg/dL (1.6-2.3)
--- NOTE | 2020-08-21 13:55 | PM.IMPN ---
Progress Note: A&P Assessment and Plan (1) Acute dehydration: Code(s): E86.0 - Dehydration Status: Acute Assessment and Plan: Patient received fluids in ED. Will saline lock for now. Push po fluids as tolerated. Patient with SBP =200 Monitor I/O's daily Daily labs Clear liquid diet advance as tolerated. 08/21/20 13:55 Patient is 85 year female with history of hypertension presented emergency department with a complaint of abdominal pain, initially patient was seen by her primary care physician was diagnosed with UTI and started on oral antibiotics however upon taking the antibiotics her abdominal pain got worse and developed nausea and vomiting presented emergency department further evaluation, this morning patient states feeling little better compared to when she arrived, was able to eat little bit and a pain is also better, she states she would like to sit in the chair, and would like to participate in physical therapy, I have spoke to patient's nurse will have patient sit in the chair and have PT OT evaluate the patient and further recommendation to follow, repeat UA in the emergency department is clean, CT scan of abdomen did not show any acute injury. Upon arrival to emergency department patient's systolic blood pressure was over 200 as patient had not taken her blood pressure medication due to abdominal pain and nausea and vomiting, we have resumed patient home regimen will continue to monitor patient blood pressure is trending down, and with no complaint of chest pain dizziness or palpitation today 08/21 patient still complains of persistent abdominal cramping, and passing out of gas, review of CT scan of abdomen showed patient with significant there is prominent fecal material in the rectosigmoid area. No bowel obstruction, bowel wall thickening or pneumoperitoneum. Will give patient MiraLax and Colace to help with constipation, patient with chronic kidney disease and her creatinine is rising patient is not taking p.o., the patient gentle hydration and monitor kidney function, spoke with the patient's daughter Chantell and answered all her questions will continue to monitor and plan accordingly (2) Chronic kidney disease (CKD) stage G3b/A1, moderately decreased glomerular filtration rate (GFR) between 30-44 mL/min/1.73 square meter and albuminuria creatinine ratio less than 30 mg/g: Code(s): N18.3 - Chronic kidney disease, stage 3 (moderate) Status: Acute Assessment and Plan: Bun/Cr is currently at patient's baseline Avoid Nephrotoxins BP goal 130/80 Continue Irbesartan Hydralazine iv prn Daily BMP (3) Hypertensive urgency: Code(s): I16.0 - Hypertensive urgency Status: Acute Assessment and Plan: Suspect as a result of patient not been able to tolerate po. Re start home meds Judicious normalization of BP Continue to monitor (4) Abdominal pain: Code(s): R10.9 - Unspecified abdominal pain Status: Acute Assessment and Plan: CT abd/pel reviewed No acute abnormalities seen (5) Nausea alone: Code(s): R11.0 - Nausea Status: Acute Assessment and Plan: Improved likely secondary to antibiotic Supportive care (6) Lightheadedness: Code(s): R42 - Dizziness and giddiness Status: Acute Assessment and Plan: Likely secondary to uncontrolled HTN and dehydration. Bed rest Supportive care Will consider CT head if persistent (7) UTI (urinary tract infection): Code(s): N39.0 - Urinary tract infection, site not specified Status: Acute Assessment and Plan: Repeat Ua is clean Discontinued antibiotics Subjective Date/time seen: 08/21/20 13:55 Patient is 85 year female with history of hypertension presented emergency department with a complaint of abdominal pain, initially patient was seen by her primary care physician was diagnosed with UTI and started on oral antibiotics however upon taking the antibiotics her abdo
[2020-08-21] MEDS: DOCUSATE SODIUM 100 MG CAPSULE PO ×2 (14:30→21:00)
[2020-08-21] MEDS: polyethylene glycoL 3350 17 GM POWD.PACK PO (14:30)
[2020-08-21] MEDS: SODIUM CHLORIDE 0.9% IV 1,000 ML 100 ML IV CONT ×2 (14:40→23:49)
[2020-08-21 16:53] LABS: Glucose Point of Care 221 (65-105)
[2020-08-21] MEDS: MAG HYDROX/AL HYDROX/SIMETH 30 ML UDC PO (17:06)
[2020-08-21] MEDS: MAGNESIUM HYDROXIDE SUSP 30 ML UDC PO (17:07)
[2020-08-21] MEDS: ONDANSETRON HCL ODT 4 MG TABLET PO (17:19)
[2020-08-21] MEDS: LATANOPROST 0.005% OP SOLN 2.5 ML BTL 1 DROP EACH EYE (21:03)
[2020-08-21] MEDS: IRBESARTAN 150 MG TABLET 300 MG PO (21:03)
[2020-08-21] MEDS: INSULIN GLARGINE (*BKC) 100 UNITS/ML 8 UNITS SUB-Q (21:07)
[2020-08-21 22:05] LABS: Glucose Point of Care 210 (65-105)
[2020-08-22] VITALS (12 sets, daily range): BP systolic 151–187; BP diastolic 58–77; PULSE 76–93; RESP 17–20; TEMP 36.3–36.6; O2SAT 96
[2020-08-22] MEDS: hydrALAZINE HCL 20 MG/ML VIAL 10 MG IV PUSH ×2 (02:02→14:26)
[2020-08-22 02:12] LABS: Glucose Point of Care 152 (65-105)
[2020-08-22 06:01] LABS: Hematocrit 37.9 % (37.0-47.0); Hemoglobin 12.7 g/dL (12.0-15.0); Mean Corpuscular HGB Conc 33.5 g/dl (32-36); Mean Corpuscular Hemoglobin 28.3 pg (26-34); Mean Corpuscular Volume 84.6 fl (80-100); Mean Platelet Volume 11.1 fl (7.4-10.4); Platelet Count Result 260 k/mm3 (150-375); Red Blood Count 4.48 M/mm3 (4.2-5.4); Red Cell Distribution Width 13.4 % (11.5-14.5)
[2020-08-22 06:12] LABS: Anion Gap 3 mmol/L (8-16); Blood Urea Nitrogen 40 mg/dL (7-17); Calcium 8.5 mg/dL (8.4-10.2); Carbon Dioxide 35 mmol/L (22-30); Chloride 98 mmol/L (98-107); Estimated CRCL calculation 23 ml/min; Estimated Glomerular Filt Rate 31; Glucose 156 mg/dL (65-105); Potassium 3.7 mmol/L (3.4-5.0); Sodium 136 mmol/L (137-145)
[2020-08-22] MEDS: MAGNESIUM CITRATE 300 ML BTL PO (07:12)
[2020-08-22 07:15] LABS: Glucose Point of Care 181 (65-105)
[2020-08-22] MEDS: DOCUSATE SODIUM 100 MG CAPSULE PO ×2 (09:20→20:33)
[2020-08-22] MEDS: polyethylene glycoL 3350 17 GM POWD.PACK PO (09:20)
[2020-08-22] MEDS: HEPARIN SODIUM 5,000 UNITS/ML VIAL 5000 UNITS SUB-Q ×2 (09:20→20:34)
[2020-08-22] MEDS: INSULIN ASPART (*BKC) 100 UNITS/ML SUB-Q ×3 (09:21→17:15)
[2020-08-22] MEDS: TORSEMIDE 20 MG TABLET PO ×2 (09:21→17:19)
[2020-08-22] MEDS: ONDANSETRON HCL ODT 4 MG TABLET PO ×2 (09:27→15:18)
[2020-08-22] MEDS: SODIUM CHLORIDE 0.9% IV 1,000 ML 100 ML IV CONT (11:54)
[2020-08-22 11:56] LABS: Glucose Point of Care 163 (65-105)
--- NOTE | 2020-08-22 14:06 | P.PNIM_ITS ---
Progress Note: A&P Assessment and Plan (1) Acute dehydration: Code(s): E86.0 - Dehydration Status: Acute Assessment and Plan: Patient received fluids in ED. Will saline lock for now. Push po fluids as tolerated. Patient with SBP =200 Monitor I/O's daily Daily labs Clear liquid diet advance as tolerated. 08/22/20 14:06 Patient is 85 year female with history of hypertension presented emergency department with a complaint of abdominal pain, initially patient was seen by her primary care physician was diagnosed with UTI and started on oral antibiotics however upon taking the antibiotics her abdominal pain got worse and developed nausea and vomiting presented emergency department further evaluation, this morning patient states feeling little better compared to when she arrived, was able to eat little bit and a pain is also better, she states she would like to sit in the chair, and would like to participate in physical therapy, I have spoke to patient's nurse will have patient sit in the chair and have PT OT evaluate the patient and further recommendation to follow, repeat UA in the emergency department is clean, CT scan of abdomen did not show any acute injury. Upon arrival to emergency department patient's systolic blood pressure was over 200 as patient had not taken her blood pressure medication due to abdominal pain and nausea and vomiting, we have resumed patient home regimen will continue to monitor patient blood pressure is trending down, and with no complaint of chest pain dizziness or palpitation on 08/21 patient still complained of persistent abdominal cramping, and passing out of gas, review of CT scan of abdomen showed patient with significant there is prominent fecal material in the rectosigmoid area. No bowel obstruction, bowel wall thickening or pneumoperitoneum. gave patient MiraLax and Colace to help with constipation, patient with chronic kidney disease and her creatinine was rising patient is not taking p.o., started patient on gentle hydration and monitor kidney function, spoke with the patient's daughter Chantell and answered all her questions will continue to monitor and plan accordingly, Today 08/22 patient is feeling much better had 3 BM that has improved her abdominal pain denies any nausea or vomiting, her kidney function has also improved creatinine 1.6 very compared to 1.8 chest, will continue present management reassess tomorrow if remains clinically stable will discharge the patient home. (2) Chronic kidney disease (CKD) stage G3b/A1, moderately decreased glomerular filtration rate (GFR) between 30-44 mL/min/1.73 square meter and albuminuria creatinine ratio less than 30 mg/g: Code(s): N18.3 - Chronic kidney disease, stage 3 (moderate) Status: Acute Assessment and Plan: Bun/Cr is currently at patient's baseline Avoid Nephrotoxins BP goal 130/80 Continue Irbesartan Hydralazine iv prn Daily BMP (3) Hypertensive urgency: Code(s): I16.0 - Hypertensive urgency Status: Acute Assessment and Plan: Suspect as a result of patient not been able to tolerate po. Re start home meds Judicious normalization of BP Continue to monitor (4) Abdominal pain: Code(s): R10.9 - Unspecified abdominal pain Status: Acute Assessment and Plan: CT abd/pel reviewed No acute abnormalities seen (5) Nausea alone: Code(s): R11.0 - Nausea Status: Acute Assessment and Plan: Improved likely secondary to antibiotic Supportive care (6) Lightheadedness: Code(s): R42 - Dizziness and giddiness Status: Acute Assessment and Plan:
[2020-08-22 16:51] LABS: Glucose Point of Care 144 (65-105)
[2020-08-22] MEDS: PRAVASTATIN SODIUM 10 MG TABLET PO (17:19)
[2020-08-22] MEDS: LATANOPROST 0.005% OP SOLN 2.5 ML BTL 1 DROP EACH EYE (20:34)
[2020-08-22] MEDS: INSULIN GLARGINE (*BKC) 100 UNITS/ML 8 UNITS SUB-Q (20:34)
[2020-08-22] MEDS: IRBESARTAN 150 MG TABLET 300 MG PO (20:34)
[2020-08-22 20:56] LABS: Glucose Point of Care 160 (65-105)
[2020-08-23] VITALS (7 sets, daily range): BP systolic 170–176; BP diastolic 63; PULSE 72–100; RESP 15–20; TEMP 37.1–37.4; O2SAT 96–98
[2020-08-23] MEDS: SODIUM CHLORIDE 0.9% IV 1,000 ML 100 ML IV CONT (03:17)
[2020-08-23 06:09] LABS: Hemoglobin 12.4 g/dL (12.0-15.0); Mean Corpuscular HGB Conc 32.6 g/dl (32-36); Mean Corpuscular Hemoglobin 28.4 pg (26-34); Mean Corpuscular Volume 87.2 fl (80-100); Mean Platelet Volume 10.7 fl (7.4-10.4); Platelet Count Result 239 k/mm3 (150-375); Red Blood Count 4.36 M/mm3 (4.2-5.4); Red Cell Distribution Width 14.1 % (11.5-14.5); White Blood Count 8.2 K/mm3 (4.5-10.0)
[2020-08-23 06:23] LABS: Anion Gap 2 mmol/L (8-16); Blood Urea Nitrogen 35 mg/dL (7-17); Calcium 8.6 mg/dL (8.4-10.2); Carbon Dioxide 36 mmol/L (22-30); Chloride 102 mmol/L (98-107); Estimated CRCL calculation 23 ml/min; Estimated Glomerular Filt Rate 31; Glucose 111 mg/dL (65-105); Potassium 3.7 mmol/L (3.4-5.0); Sodium 140 mmol/L (137-145)
[2020-08-23 07:15] LABS: Glucose Point of Care 110 (65-105)
[2020-08-23] MEDS: INSULIN ASPART (*BKC) 100 UNITS/ML SUB-Q ×2 (08:01→12:02)
[2020-08-23] MEDS: HEPARIN SODIUM 5,000 UNITS/ML VIAL 5000 UNITS SUB-Q (08:02)
[2020-08-23] MEDS: DOCUSATE SODIUM 100 MG CAPSULE PO (08:02)
[2020-08-23] MEDS: TORSEMIDE 20 MG TABLET PO (08:03)
[2020-08-23] MEDS: polyethylene glycoL 3350 17 GM POWD.PACK PO (08:03)
--- NOTE | 2020-08-23 08:50 | PM.DS ---
DS: Admitting Diagnosis Admitting Diagnosis Admitting Diagnosis: Dehydration DS: Discharge Diagnosis Discharge Diagnosis (1) Acute dehydration: Code(s): E86.0 - Dehydration Status: Acute Assessment and Plan: Patient received fluids in ED. Will saline lock for now. Push po fluids as tolerated. Patient with SBP =200 Monitor I/O's daily Daily labs Clear liquid diet advance as tolerated. 08/22/20 14:06 Patient is 85 year female with history of hypertension presented emergency department with a complaint of abdominal pain, initially patient was seen by her primary care physician was diagnosed with UTI and started on oral antibiotics however upon taking the antibiotics her abdominal pain got worse and developed nausea and vomiting presented emergency department further evaluation, this morning patient states feeling little better compared to when she arrived, was able to eat little bit and a pain is also better, she states she would like to sit in the chair, and would like to participate in physical therapy, I have spoke to patient's nurse will have patient sit in the chair and have PT OT evaluate the patient and further recommendation to follow, repeat UA in the emergency department is clean, CT scan of abdomen did not show any acute injury. Upon arrival to emergency department patient's systolic blood pressure was over 200 as patient had not taken her blood pressure medication due to abdominal pain and nausea and vomiting, we have resumed patient home regimen will continue to monitor patient blood pressure is trending down, and with no complaint of chest pain dizziness or palpitation on 08/21 patient still complained of persistent abdominal cramping, and passing out of gas, review of CT scan of abdomen showed patient with significant there is prominent fecal material in the rectosigmoid area. No bowel obstruction, bowel wall thickening or pneumoperitoneum. gave patient MiraLax and Colace to help with constipation, patient with chronic kidney disease and her creatinine was rising patient is not taking p.o., started patient on gentle hydration and monitor kidney function, spoke with the patient's daughter Chantell and answered all her questions will continue to monitor and plan accordingly, Today 08/22 patient is feeling much better had 3 BM that has improved her abdominal pain denies any nausea or vomiting, her kidney function has also improved creatinine 1.6 very compared to 1.8 chest, will continue present management reassess tomorrow if remains clinically stable will discharge the patient home. (2) Chronic kidney disease (CKD) stage G3b/A1, moderately decreased glomerular filtration rate (GFR) between 30-44 mL/min/1.73 square meter and albuminuria creatinine ratio less than 30 mg/g: Code(s): N18.3 - Chronic kidney disease, stage 3 (moderate) Status: Acute Assessment and Plan: Bun/Cr is currently at patient's baseline Avoid Nephrotoxins BP goal 130/80 Continue Irbesartan Hydralazine iv prn Daily BMP (3) Hypertensive urgency: Code(s): I16.0 - Hypertensive urgency Status: Acute Assessment and Plan: Suspect as a result of patient not been able to tolerate po. Re start home meds Judicious normalization of BP Continue to monitor (4) Abdominal pain: Code(s): R10.9 - Unspecified abdominal pain Status: Acute Assessment and Plan: CT abd/pel reviewed No acute abnormalities seen (5) Nausea alone: Code(s): R11.0 - Nausea Status: Acute Assessment and Plan: Improved likely secondary to antibiotic Supportive care (6) Lightheadedness: Code(s): R42 - Dizziness and giddiness Status: Acute Assessment and Plan: Likely secondary to uncontrolled HTN and dehydration. Bed rest Supportive care Will consider CT head if persistent (7) UTI (urinary tract infection): Code(s): N39.0 - Urinary tract infection, site not specified Status:
[2020-08-23 11:51] LABS: Glucose Point of Care 208 (65-105)
== END 2020-08-23 16:30 | disposition home health service (06) | DRG 641 ==
LOC: ANHED 20:18 → ANH2MED 21:35
PROVIDERS: Admitting Provider Internal Medicine; Emergency Provider Emergency Medicine; PCP Family Medicine; Visit Provider Family Medicine
DX: E86.0 Dehydration (principal); E11.42 Type 2 diabetes mellitus with diabetic polyneuropathy; E11.22 Type 2 diabetes mellitus with diabetic chronic kidney disease; I16.0 Hypertensive urgency; I12.9 Hypertensive chronic kidney disease with stage 1 through stage 4 chronic kidney disease, or unspecified chronic kidney disease; N18.32 Chronic kidney disease, stage 3b; I35.0 Nonrheumatic aortic (valve) stenosis; E78.2 Mixed hyperlipidemia; R10.9 Unspecified abdominal pain; K59.00 Constipation, unspecified; R11.0 Nausea; T36.95XA Adverse effect of unspecified systemic antibiotic, initial encounter; M81.0 Age-related osteoporosis without current pathological fracture; M54.5 Low back pain; Z96.41 Presence of insulin pump (external) (internal); Z87.440 Personal history of urinary (tract) infections; Z79.4 Long term (current) use of insulin; Z79.899 Other long term (current) drug therapy; Z85.3 Personal history of malignant neoplasm of breast
CPT/HCPCS: 36415; 51701; 74018; 74176; 80048; 80053; 81001; 83605; 83690; 83735; 84484; 85025; 85027; 93005; 96361; 96372; 96374; 96375; 96376; 97110; 97116; 97162; 97165; 97530; 97535; 99285; A9270; G0378; J0360; J1644; J1815; J2270; J2405; J7030

== ENCOUNTER 2020-08-27 13:10 | Emergency (ER) | payer MEDICARE, SELFPAY ==
--- NOTE | ~2020-08-27 | XR_ITS ---
XR abdomen/kub 1V DATE: 08/27/2020 13:53 INDICATION: Generalized abdominal pain, nausea. Fecal impaction. TECHNIQUE: Supine AP view COMPARISON: 08/22/2020 KUB FINDINGS: Persistent stool ball in the rectum measuring almost 8 cm transverse dimension and 11 cm le ngth. There is a moderate amount of fecal material in the colon and gaseous distention of the transverse an d right colon. No thumbprinting is evident. Scattered nondilated gas containing small bowel segments are noted. No abnormal dilatation of small or large bowel is noted. No intraperitoneal free air is ap preciated. No visceromegaly is detected. Multilevel degenerative disease of lumbar spine. Bilateral hip osteoarthritis. Diffuse osteopenia. IMPRESSION: Persistent rectosigmoid fecal impaction Reviewed, dictated and finalized at [facility]. Reviewed, dictated and finalized at location [facility]. BI DEVELOPER
--- NOTE | ~2020-08-27 | XR_ITS ---
EXAMINATION: XR abdomen/kub 1V DATE: 08/27/2020 18:49 INDICATION: Fecal impaction TECHNIQUE: A supine view of the abdomen on 2 radiographs was obtained. COMPARISON: 08/27/2020 at 1:49 PM FINDINGS: Mild decrease in the still moderate amount of gas and stool scattered throughout the colon. The previ ously seen ball of stool at the rectum is no longer present. No dilated loops of gas-filled small bow el to suggest obstruction. Elevation versus eventration of the right hemidiaphragm. Visualized lungs are clear. Heart size is normal. Surgical clips project over the right chest likely related to prior right breast excisional biopsy. Couple coarse calcifications at the left breast. Severe lumbar spondy losis. IMPRESSION: 1. Resolution of prior large ball of stool at the rectum with moderate amount of residual gas and sto ol throughout the more proximal colon. Reviewed, dictated and finalized at location . KDOWN MAN IMPRESSION: 1. Resolution of prior large ball of stool at the rectum with moderate amount o f residual gas and stool throughout the more proximal colon.
[2020-08-27 13:19] VITALS: BP 157/80; PULSE 80; RESP 18; TEMP 36.3; O2SAT 97
--- NOTE | 2020-08-27 13:22 | PC.NURSE ---
Patient is able to call [phone] for a ride home if before 1630 hrs today.
--- NOTE | 2020-08-27 14:08 | ECG_ITS ---
Measurements Intervals [place] Rate: 101 P: [place]: 0 QRS: -48 QRSD: 87 T: 75 QT: 352 QTc: 457 Interpretive Statements SINUS RHYTHM CHANGES TO ATRIAL TACHYCARDIA ATRIAL AND VENTRICULAR PREMATURE COMPLEXES LEFT AXIS DEVIATION VOLTAGE CRITERIA FOR LVH INFERIOR INFARCT, AGE INDETERMINATE ANTEROSEPTAL INFARCT, AGE INDETERMINATE BORDERLINE ST-T WAVE ABNORMALITY- HIGH LATERAL LEADS ABNORMAL ECG Electronically Signed On 08-27-2020 14:33:04 PROGRAM DIRECTOR/MORNING SHOW HOST by Jaun Winters D.O.
[2020-08-27 14:14] LABS: Basophils Percent Auto 0.2 % (0.2-1.2); Eosinophils Absolute Auto 0.1 K/mm3 (0-0.3); Eosinophils Percent Auto 0.3 % (0-4.4); Hematocrit 43.9 % (37.0-47.0); Hemoglobin 14.4 g/dL (12.0-15.0); Immature Granulocyte Absolute 0.09 K/mm3 (0.00-0.031); Immature Granulocyte Percent A 0.6 % (0-0.5); Lymphocytes Absolute Auto 1.04 K/mm3 (0.9-3.2); Lymphocytes Percent Auto 7.1 % (18.3-44.2); Mean Corpuscular HGB Conc 32.8 g/dl (32-36); Mean Corpuscular Hemoglobin 28.6 pg (26-34); Mean Corpuscular Volume 87.1 fl (80-100); Monocytes Absolute Auto 1.3 K/mm3 (0.1-0.6); Monocytes Percent Auto 8.7 % (2.6-8.5); Neutrophils Absolute Auto 12.1 K/mm3 (1.3-6.7); Neutrophils Percent Auto 83.1 % (45.5-73.1); Platelet Count Result 266 k/mm3 (150-375); Red Blood Count 5.04 M/mm3 (4.2-5.4); Red Cell Distribution Width 14.5 % (11.5-14.5); White Blood Count 14.6 K/mm3 (4.5-10.0)
[2020-08-27 14:27] LABS: Alanine Aminotransferase 30 U/L (4-35); Albumin Level 3.9 g/dL (3.5-5.1); Alkaline Phosphatase 105 U/L (38-126); Anion Gap 8 mmol/L (8-16); Aspartate Amino Transferase 44 U/L (14-36); Bilirubin,Total 0.8 mg/dL (0.2-1.3); Blood Urea Nitrogen 30 mg/dL (7-17); Calcium 9.2 mg/dL (8.4-10.2); Carbon Dioxide 35 mmol/L (22-30); Chloride 90 mmol/L (98-107); Estimated CRCL calculation 28 ml/min; Estimated Glomerular Filt Rate 36; Glucose 132 mg/dL (65-105); Potassium 3.6 mmol/L (3.4-5.0); Sodium 133 mmol/L (137-145)
[2020-08-27] MEDS: ONDANSETRON INJ 4 MG/2 ML VIAL IV PUSH (14:28)
--- NOTE | 2020-08-27 14:54 | ED.ABDPAIN ---
HPI - Abdominal Pain General Chief Complaint: Abdominal Pain <Roxana Kwok PA-C - Last Filed: 08/27/20 20:30> Stated Complaint: cramping and abdominal pain, nausea <Roxana Kwok PA-C - Last Filed: 08/27/20 20:30> Time Seen by Provider: 08/27/20 13:19 <Roxana Kwok PA-C - Last Filed: 08/27/20 20:30> Source: patient <LOS Sepulveda Last Filed: 08/27/20 20:30> Mode of arrival: ambulatory <LOS Sepulveda Last Filed: 08/27/20 20:30> Limitations: no limitations <LOS Sepulveda Last Filed: 08/27/20 20:30> History of Present Illness HPI narrative: Patient presents with chief complaint of constipation, abdominal discomfort, gas and nausea that has persisted over the past few weeks. Patient was admitted and discharged on Sunday and followed up with her primary care today and they sent her to the emergency department for further evaluation of her constipation stating that the patient was not evaluated by gastroenterology during her admittance. During patient's admission it was found that she did not have an active urinary tract infection, so antibiotics were stopped as they were also only causing the patient's nausea to worsen. Patient has been taking stool softeners and states that she has been having some small soft bowel reviewed the exam is discharge but it does not feel that it is a note. She reports nausea but denies vomiting. Patient denies any blood in the stool. Patient states she has been able to eat and has only been eating very small amounts. <Roxana Kwok PA-C - Last Filed: 08/27/20 20:30> Related Data Home Medications: Home Medications Medication Instructions Recorded Confirmed latanoprost 1 drp OPHTHALMIC (EYE) HS 11/23/19 08/19/20 insulin lispro 100 unit/mL See Rx Instructions .ROUTE .COMPLEX 12/20/19 08/19/20 subcutaneous pen Lantus Solostar U-100 Insulin 8 unit SUB-Q QPM 08/15/20 08/19/20 calcium carbonate-vit D3-min 1 tablet PO BID 08/15/20 08/19/20 coenzyme Q10 [Co Q-10] 20 mg PO DAILY 08/15/20 08/19/20 polyethylene glycol 3350 [Miralax] 17 g PO DAILY 08/15/20 08/19/20 torsemide 20 mg PO BID 08/15/20 08/19/20 dicyclomine 20 mg PO TID PRN 08/19/20 08/19/20 multivitamin with minerals 2 tablet PO BID 08/19/20 08/19/20 tramadol 50 mg PO DAILY PRN 08/19/20 08/19/20 <Roxana Kwok PA-C - Last Filed: 08/27/20 20:30> Allergies/Adverse Reactions: Allergies Allergy/AdvReac Type Severity Reaction Status Date / Time ciprofloxacin Allergy Unknown Anxiety Verified 08/27/20 13:53 dexamethasone Allergy Unknown Anxiety Verified 08/27/20 13:53 hydrochlorothiazide Allergy Unknown Anxiety Verified 08/27/20 13:53 triamterene Allergy Unknown Anxiety Verified 08/27/20 13:53 <Roxana Kwok PA-C - Last Filed: 08/27/20 20:30> Review of Systems Review of Systems: Narrative: CONSTITUTIONAL: Denies fever, chills, or sweats. EYES: Denies visual changes, redness, or discharge. ENT: Denies rhinorrhea, congestion, sore throat, or otalgia. CARDIOVASCULAR: Denies chest pain, palpitations, or edema. RESPIRATORY: Denies cough or dyspnea. GASTROINTESTINAL: Reports abdominal pain, gas, bloating, nausea Denies vomiting or diarrhea. GENITOURINARY: Denies dysuria or hematuria. SKIN: Denies rash or itching. MUSCULOSKELETAL: Denies back pain, myalgia, or joint pain NEUROLOGIC: Denies headache, numbness, dizziness, or weakness. PSYCHIATRIC: Denies anxiety or depression. 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
[2020-08-27 15:09] LABS: Add Urine Microscopic? YES; Appearance Urine Clear (Clear); Bacteria Urine Trace /hpf; Bilirubin Urine Negative (Negative); Blood Urine 2+ (Negative); Color Urine Yellow (Yellow); Glucose Urine UA Negative (Negative); Ketones Urine Trace mg/dL (Negative); Leukocyte Esterase Ur Negative LEU/UL (Negative); Nitrate Urine Negative (Negative); Protein Urine 2+ mg/dL (Negative); Specific Grav Ur 1.013 (1.001-1.035); Squamous Epithelial Cell Urine Rare /hpf (Few); Urobilinogen Urine Negative mg/dL (<2.0); WBC Urine 0-3 /hpf
[2020-08-27 15:34] VITALS: BP 189/86; PULSE 80; RESP 18; O2SAT 99
[2020-08-27 17:11] VITALS: BP 177/100; PULSE 86; RESP 18; O2SAT 98
[2020-08-27 18:02] VITALS: BP 166/90; PULSE 82; RESP 18; O2SAT 99
[2020-08-27 19:34] VITALS: BP 146/84; PULSE 84; RESP 17; O2SAT 98
== END 2020-08-27 19:50 | disposition home or self-care (01) ==
PROVIDERS: Physician Assistant; Emergency Provider General Practice; PCP Family Medicine
DX: K56.41 Fecal impaction (principal); Z85.3 Personal history of malignant neoplasm of breast; E78.2 Mixed hyperlipidemia; M81.0 Age-related osteoporosis without current pathological fracture; E11.42 Type 2 diabetes mellitus with diabetic polyneuropathy; I35.0 Nonrheumatic aortic (valve) stenosis; Z79.4 Long term (current) use of insulin; I47.1 Supraventricular tachycardia; I49.1 Atrial premature depolarization; I49.3 Ventricular premature depolarization; R94.31 Abnormal electrocardiogram [ECG] [EKG]
CPT/HCPCS: 36415; 74018; 80053; 81001; 85025; 93005; 96374; 99284; J2405

== ENCOUNTER 2020-10-01 11:05 | Emergency (ER) | payer MEDICARE, SELFPAY ==
--- NOTE | ~2020-10-01 | CT_ITS ---
EXAMINATION: CT thoracic lumbar wo con EXAM DATE: 10/01/2020 13:23 INDICATION: Back pain. TECHNIQUE: Spiral CT thoracolumbar spine was performed without contrast. Axial, coronal and sagittal images of the thoracic spine were reviewed. Axial, coronal and sagittal images of the lumbar spine we re reviewed. The dose-length product (DLP) for this examination was 1580.24 mGy-cm. The exposure was tailored according to patient size (auto mA exposure control), and iterative reconstruction (ASIR) w as used as additional dose reduction technique. Correlation is made to lumbar x-ray 08/11/2020. FINDINGS: THORACIC SPINE: The vertebral bodies are aligned in the AP dimension. No acute thoracic fractures. Th ere is mild to moderate thoracic disc disease. Thoracic neural foramen and central canal appear widel y patent. Incidental lipoma posterior lower cervical region measuring about 4 cm. Incidental right ad renal gland adenoma measuring 2.4 cm. There is a left renal cyst measuring 5.3 cm. Mild thoracic face t arthropathy. LUMBAR SPINE: There is an L1 burst fracture with moderate to severe loss of this vertebral body heig ht, 4 mm retropulsion of the superior endplate causing mild to moderate central canal stenosis. There is mild L2 superior endplate fracture, also likely burst type with bilateral pedicle involvement. Th patti fractures appear subacute, with some reparative response suspected. There are left L1, bilateral L2 subacute transverse process fractures. There are bilateral L3 subacute pedicular fractures. There is 3 mm retrolisthesis L2 on L3, 6 mm anterolisthesis L4 on L5 and 3 mm anterolisthesis L5 on S 1. There is moderate to severe disc disease L2-3, L4-5 and L5-S1, moderate at L3-4. The sacroiliac catina ints are intact. The left L4-5 neural foramina is moderate to severely narrowed, most narrowed neural foramina. Mild lumbar levoscoliosis. Severe lower lumbar facet arthropathy. IMPRESSION: 1. L1 moderate to severe, L2 mild burst fractures, bilateral L3 nondisplaced pedicular fractures. Th patti appears subacute but are new compared to August 11 x-ray. Please note burst fractures can be uns table. 2. Subacute transverse process fractures L1 and L2. 3. Moderate to severe lumbar spondylosis. 4. Mild to moderate thoracic disc disease. Reviewed, dictated and finalized at location A. NG CLEANER IMPRESSION: 1. L1 moderate to severe, L2 mild burst fractures, bilateral L3 nondisplaced p edicular fractures. These appears subacute but are new compared to August 11 x -ray. Please note burst fractures can be unstable. 2. Subacute transverse process fractures L1 and L2. 3. Moderate to severe lumbar spondylosis. 4. Mild to moderate thoracic disc disease.
[2020-10-01 11:13] VITALS: BP 144/78; PULSE 83; RESP 14; TEMP 36.9; O2SAT 99
--- NOTE | 2020-10-01 12:22 | ED.BACK ---
HPI - Back Pain/Injury General Chief Complaint: Back Pain/Injury Stated Complaint: low back pain Time Seen by Provider: 10/01/20 12:00 History of Present Illness HPI Narrative: 85 yo female with chronic low back pain presents to the ED for low back pain. She reports that it has been worse over the past few weeks, but she has been able to tolerate it. Today the pain was severe enough that she was not able to stand or walk on her own. The pain is in the midline ind radiates into the thighs bilaterally. She has been doing physical therapy since a recent hospitalization. No injury. No urinary frequency, urgency, fever. Related Data Home Medications Medication Instructions Recorded Confirmed latanoprost 1 drp OPHTHALMIC (EYE) HS 11/23/19 09/29/20 calcium carbonate-vit D3-min 1 tablet PO BID 08/15/20 09/29/20 coenzyme Q10 [Co Q-10] 20 mg PO DAILY 08/15/20 09/29/20 polyethylene glycol 3350 [Miralax] 17 g PO DAILY 08/15/20 09/29/20 torsemide 20 mg PO BID 08/15/20 09/29/20 dicyclomine 20 mg PO TID PRN 08/19/20 09/29/20 multivitamin with minerals 2 tablet PO BID 08/19/20 09/29/20 tramadol 50 mg PO DAILY PRN 08/19/20 09/29/20 lactulose 20 gram/30 mL oral 20 g PO BID 09/23/20 09/29/20 solution metoclopramide HCl 5 mg tablet 5 mg PO DAILY 09/27/20 09/29/20 insulin glargine 100 unit/mL (3 10 unit SUB-Q QPM ml 09/29/20 09/29/20 mL) subcutaneous pen insulin lispro 100 unit/mL See Rx Instructions .ROUTE .COMPLEX 09/29/20 09/29/20 subcutaneous pen Allergies Allergy/AdvReac Type Severity Reaction Status Date / Time ciprofloxacin Allergy Unknown Anxiety Verified 09/23/20 10:27 dexamethasone Allergy Unknown Anxiety Verified 09/23/20 10:27 hydrochlorothiazide Allergy Unknown Anxiety Verified 09/23/20 10:27 triamterene Allergy Unknown Anxiety Verified 09/23/20 10:27 Review of Systems Review of Systems: All systems reviewed & are unremarkable except as noted in HPI and below Constitutional: Constitutional: Denies chills, Denies fever(s) and Denies weakness Cardiovascular: Cardiovascular: Denies chest pain Respiratory: Respiratory: Denies dyspnea Gastrointestinal: Gastrointestinal: Denies abdominal pain, Reports constipation and Denies nausea Genitourinary: Genitourinary: Denies hematuria, Denies nocturia and Denies dysuria Musculoskeletal: Musculoskeletal: Reports back pain Neurologic: Denies dizziness, Denies numbness and Denies weakness [facility] Past Medical History Medical History Aortic stenosis Benign essential hypertension CAD in [place] artery Heart murmur History of breast cancer Hx of Crohn's disease Lumbar pain with radiation down right leg Mixed hyperlipidemia Nonrheumatic aortic (valve) stenosis Osteoporosis Overflow incontinence Peripheral neuropathy Post menopausal problems Type 2 diabetes mellitus with diabetic polyneuropathy Type 2 diabetes mellitus with hyperglycemia, with long-term current use of insulin (~1979) Family History Family History Grandparent Diabetes mellitus Father Hypertension Cerebrovascular accident Mother Family history of arthritis Acute myocardial infarction, Onset Age: 84 Other Family history of hearing loss Family history of osteoporosis Social History Social History Smoking status: Never smoker Second hand tobacco smoke exposure: No Alcohol intake: current Drinks per week: 1 Substance use: never Substance use type: does not use Gender identity (if verbalized by the patient): Female Spiritual care concerns: No Agree to blood products: Yes Exam Const: General: no acute distress and alert Orientation/consciousness: patient oriented x3 HENMT: Head: normal to inspection Chest: Chest palpation & inspection: normal inspection of the chest Resp: Effort & Inspection: no
[2020-10-01] MEDS: MORPHINE SULFATE INJ (*CRX) 10 MG/ML AMP 2 MG IM (12:31)
[2020-10-01] MEDS: diazePAM INJ (*CRX) 10 MG/2 ML SYRINGE 5 MG IM (12:33)
[2020-10-01 13:00] VITALS: BP 156/75; PULSE 72; RESP 18; O2SAT 100
[2020-10-01 15:35] VITALS: BP 166/74; PULSE 69; RESP 96; TEMP 36.5
[2020-10-01 15:40] LABS: Add Urine Microscopic? YES; Appearance Urine Clear (Clear); Bacteria Urine 4+ /hpf; Bilirubin Urine Negative (Negative); Blood Urine 2+ (Negative); Color Urine Yellow (Yellow); Glucose Urine UA Negative (Negative); Ketones Urine Trace mg/dL (Negative); Leukocyte Esterase Ur 2+ LEU/UL (Negative); Mucus Urine Rare /lpf; Nitrate Urine Negative (Negative); Protein Urine 2+ mg/dL (Negative); Specific Grav Ur 1.012 (1.001-1.035); Squamous Epithelial Cell Urine Moderate /hpf (Few); Urobilinogen Urine Negative mg/dL (<2.0); WBC Urine 21-30 /hpf
--- NOTE | 2020-10-01 15:40 | PC.NURSE ---
[facility] accepted transfer to [place] [id number] Trip # [id number]
[2020-10-01] MEDS: CEFDINIR 300 MG CAPSULE PO (16:15)
[2020-10-01] MEDS: MORPHINE SULFATE (*CRX) 2 MG/ML INJ (16:30)
== END 2020-10-01 16:37 | disposition short-term general hospital (02) ==
PROVIDERS: Emergency Provider Emergency Medicine; PCP Family Medicine
DX: S32.011A Stable burst fracture of first lumbar vertebra, initial encounter for closed fracture (principal); S32.029A Unspecified fracture of second lumbar vertebra, initial encounter for closed fracture; N39.0 Urinary tract infection, site not specified; I35.0 Nonrheumatic aortic (valve) stenosis; I10 Essential (primary) hypertension; I25.10 Atherosclerotic heart disease of native coronary artery without angina pectoris; K50.90 Crohn's disease, unspecified, without complications; E78.2 Mixed hyperlipidemia; E11.42 Type 2 diabetes mellitus with diabetic polyneuropathy; M81.0 Age-related osteoporosis without current pathological fracture; Z85.3 Personal history of malignant neoplasm of breast; Z79.4 Long term (current) use of insulin; M47.816 Spondylosis without myelopathy or radiculopathy, lumbar region; M51.9 Unspecified thoracic, thoracolumbar and lumbosacral intervertebral disc disorder; X58.XXXA Exposure to other specified factors, initial encounter
CPT/HCPCS: 72128; 72131; 81001; 87077; 87086; 87088; 87186; 96372; 99285; A9270; J2270; J3360

== ENCOUNTER 2020-11-05 12:33 | Outpatient (CLI) | payer OTHER, MEDICARE, SELFPAY ==
--- NOTE | ~2020-11-05 | XR_ITS ---
EXAMINATION: XR chest 2V DATE: 11/05/2020 14:16 INDICATION: Shortness of breath. Recent kyphoplasty 3 weeks prior. TECHNIQUE: frontal and lateral views of the chest were obtained. COMPARISON: Chest radiograph dated 07/01/[address] thoracic spine dated 10/01/2020 FINDINGS: Kyphosis centered at a T12 burst fracture with change of interval vertebroplasty. There appears to be a new compression fracture involving the anteroinferior aspect of the adjacent T11 vertebral body. L audrey volumes appear decreased on the frontal projection due to the kyphotic positioning. There is mild blunting at the costophrenic angles consistent with very small bilateral pleural effusions. No other airspace opacities, pulmonary edema or pleural effusion. Heart size is normal. IMPRESSION: 1. Very small bilateral pleural effusions. 2. T12 burst fracture with change of recent vertebroplasty. There appears to be a new compression fra cture involving the anteroinferior aspect of the adjacent T11 vertebral body. Reviewed, dictated and finalized at location B. EL MACHINE OPERATOR IMPRESSION: 1. Very small bilateral pleural effusions. 2. T12 burst fracture with change of recent vertebroplasty. There appears to be a new compression fracture involving the anteroinferior aspect of the adjacent T11 vertebral body.
--- NOTE | 2020-11-05 12:47 | ECHO_ITS ---
Patient Info Name: Sophia Webster Age: 85 years : 1935 Gender: Female Ht: 64 in Wt: 156 lbs BSA: 1.80 m2 HR: 101 bpm BP: 137 / 71 mmHg Technical Quality: Fair Exam Date: 11/05/2020 1:11 PM Exam Location: [facility] Patient Status: Outpatient Admit Date: 11/05/2020 Staff Ordering Physician: Jaun Winters DO Director Ambulatory: Maribel Snyder RDCS Attending Provider: Jaun Winters DO Referring Physician: Singh MAGANA; Exam Type: CA echo doppler color flow Study Info Indications - nonrheumatic Complete two-dimensional, color flow and Doppler transthoracic echocardiogram is performed. Summary 1. Complete two-dimensional, color flow and Doppler transthoracic echocardiogram is performed. 2. Left ventricular chamber dimension is normal. 3. Left ventricular systolic function is hyperdynamic, estimated at >70%. 4. There is moderately increased left ventricular wall thickness. 5. The left ventricular diastolic function is grade I diastolic dysfunction. 6. E/e' 19 is elevated. 7. Left atrial chamber dimension is mildly enlarged. 8. There is severe aortic valve sclerosis. 9. There is moderate aortic valve stenosis based on a peak velocity of 326 cm/s, mean gradient of 18 mmHg, and aortic valve area of 1.4 cm2. However, visually, aortic stenosis appears to be severe. Consider MONET if clinically indicated. 10. The mitral valve has moderately calcified annulus. 11. No pulmonary hypertension, estimated pulmonary arterial systolic pressure is 26 mmHg. 12. Small atheroma in anterior aortic root. Left Ventricle E/e' 19 is elevated. Left ventricular chamber dimension is normal. Left ventricular systolic function is hyperdynamic, estimated at >70%. There is moderately increased left ventricular wall thickness. The left ventricular diastolic function is grade I diastolic dysfunction. Right Ventricle Right ventricular chamber dimension is normal. Right ventricular systolic function is normal. Left Atria Left atrial chamber dimension is mildly enlarged. Right Atria Right atrial chamber dimension is normal. Aortic Valve There is moderate aortic valve stenosis based on a peak velocity of 326 cm/s, mean gradient of 18 mmHg, and aortic valve area of 1.4 cm2. However, visually, aortic stenosis appears to be severe. Consider MONET if clinically indicated. The aortic valve is trileaflet. There is severe aortic valve sclerosis. There is no aortic valve regurgitation. Pulmonic Valve There is no pulmonic regurgitation. Mitral Valve The mitral valve has moderately calcified annulus. There is no mitral valve stenosis. There is no mitral valve regurgitation. Tricuspid Valve There is no tricuspid valve regurgitation. No pulmonary hypertension, estimated pulmonary arterial systolic pressure is 26 mmHg. Pericardium/Pleural There is no pericardial effusion. Inferior Vena Cava Normal inferior vena cava with >50% collapse upon inspiration consistent with normal right atrial pressure, 5 mmHg. Aorta Small atheroma in anterior aortic root. The aortic root size at the sinus of Valsalva is normal. Left Ventricular Outflow Tract Name Value Normal LVOT 2D LVOT Diameter 2.0 cm
== END 2020-11-05 12:34 | disposition home or self-care (01) ==
PROVIDERS: PCP Family Medicine; Visit Provider Internal Medicine Cardiovascular Disease
DX: R06.02 Shortness of breath (principal); I35.0 Nonrheumatic aortic (valve) stenosis; J90 Pleural effusion, not elsewhere classified
CPT/HCPCS: 71046; 93306

== ENCOUNTER 2020-11-16 10:02 | Outpatient (CLI) | payer OTHER, MEDICARE, SELFPAY ==
--- NOTE | ~2020-11-16 | MR_ITS ---
EXAMINATION: MR lumbar spine wo con DATE: 11/16/2020 11:36 INDICATION: Lumbago. TECHNIQUE: Magnetic resonance imaging (MRI) of the lumbar spine was performed without intravenous con trast. Sequences included sagittal T2-weighted FSE, sagittal T2-weighted FS FSE, sagittal T1-weighted FSE, and axial T2-weighted FSE. COMPARISON: CT lumbar spine 10/01/2020 FINDINGS: There is 8 degrees dextrocurvature of thoracolumbar spine. There is 4 mm retrolisthesis of L2 on L3, 6 mm anterolisthesis of L4 on L5, and 3 mm anterolisthesis of L5 on S1. There is a compress ion fracture of T12 with 1/5 loss of height and bone marrow edema, new from 10/01/2020. There is a bu rst fracture of L1 with 3/5 loss of height, horizontal cleft with gas and fluid, and retropulsion of bone 4 mm into central spinal canal, stable from 10/01/2020. There is a compression fracture of super ior endplate of L2 with 1/5 loss of height and bone marrow edema, stable from 10/01/2020. There are c hronic fractures of the bilateral L3 pedicles. There is severely decreased disc height at L2-L3, L3-L 4, L4-L5, and L5-S1 with endplate remodeling. The distal spinal cord signal intensity is normal. The conus medullaris is at L1-L2. There are cysts in the kidneys measuring up to 4.8 cm on the left. The following disc levels are specifically discussed: T12-L1: The disc does not extend beyond the endplate margin. There is mild right and moderate left fa cet joint osteoarthritis. There is mild bilateral neural foraminal stenosis. There is mild central ca nal stenosis. L1-L2: The disc is bulging. There is mild bilateral facet joint osteoarthritis. There is mild bilater al neural foraminal stenosis. There is mild central canal stenosis. L2-L3: The disc is bulging and has an annular fissure. There is mild right and severe left facet join t osteoarthritis. There is mild bilateral neural foraminal stenosis. There is mild central canal sten osis. L3-L4: The disc is bulging and has an annular fissure. There is mild right and severe left facet join t osteoarthritis. There is mild right and moderate left neural foraminal stenosis. There is mild cent ral canal stenosis. L4-L5: The disc does not extend beyond the endplate margin. There is severe bilateral facet joint ost eoarthritis. There is mild right and moderate left neural foraminal stenosis. There is mild central c anal stenosis. L5-S1: The disc is bulging and has an annular fissure. There is severe bilateral facet joint osteoart hritis. There is mild bilateral neural foraminal stenosis. There is mild central canal stenosis. IMPRESSION: 1. Acute versus subacute T12 compression fracture, new from 10/01/2020. 2. Subacute L1 burst fracture and subacute L2 compression fracture, stable from 10/01/2020. 3. Chronic fractures of the bilateral L3 pedicles. 4. Severe lumbar spondylosis. Reviewed, dictated and finalized at location A. MATIC DIE CUTTING MACHINE OPERATOR
--- NOTE | ~2020-11-16 | MR_ITS ---
EXAMINATION: MR thoracic spine wo con DATE: 11/16/2020 11:35 INDICATION: Thoracic pain. L1 burst fracture post recent kyphoplasty. TECHNIQUE: Magnetic resonance imaging (MRI) of the thoracic spine was performed without intravenous c ontrast. Sagittal localizer T1-weighted FSE of the cervicothoracic spine was obtained. Thoracic spine sequences included sagittal T2-weighted FSE, sagittal T1-weighted SE, Sagittal T2-weighted FS FSE, a nd axial T2-weighted FSE. COMPARISON: Thoracic and lumbar spine CT dated 10/01/2020 FINDINGS: Thoracic kyphosis. Mild upper thoracic levocurvature and mild thoracolumbar dextrocurvature. L1 burst fracture with approximately 60% central vertebral body height loss. There is marrow edema surroundin g a couple regions of absent signal at both sides of the vertebral body consistent with recent verteb roplasty. 4 mm retropulsion of the posterior wall resulting in mild to moderate central canal stenosi s at this level. There is marrow edema throughout the T12 vertebral body surrounding a linear low sig nal intensity compression fracture plane with up to 20% left anterior vertebral body height loss whic h is new since the prior CT. Normal vertebral body heights and marrow signal throughout the more ceph alad thoracic and cervical spine. Multilevel disc height loss throughout the thoracic spine, moderate at T3-T4 through T7-T8 and mild at T9-T10 in the more cephalad thoracic spine. Moderate to severe ce rvical spondylosis is seen on the localizer images. There are few small disc bulges throughout the th oracic spine resulting negligible central canal stenosis. Small right pleural effusion. 4.9 cm left r enal cyst. 1.7 cm right thyroid nodule. IMPRESSION: 1. Recent mild T12 compression fracture with 20% left anterior vertebral body height loss which is ne w since 10/01/2020. 2. Interval vertebroplasty of L1 burst fracture with 60% vertebral body height loss and 4 mm retropul cindy resulting in mild to moderate central canal stenosis. 3. Moderate thoracic spondylosis. 4. Small right pleural effusion. 5. 1.7 cm right thyroid nodule. Reviewed, dictated and finalized at location A. CTOR OF LOGISTICS IMPRESSION: 1. Recent mild T12 compression fracture with 20% left anterior vertebral body h eight loss which is new since 10/01/2020. 2. Interval vertebroplasty of L1 burst fracture with 60% vertebral body height loss and 4 mm retropulsion resulting in mild to moderate central canal stenosis . 3. Moderate thoracic spondylosis. 4. Small right pleural effusion. 5. 1.7 cm right thyroid nodule.
== END 2020-11-16 10:03 ==
PROVIDERS: PCP Family Medicine; Visit Provider Nurse Practitioner Family
DX: M54.6 Pain in thoracic spine (principal); M54.5 Low back pain; M47.894 Other spondylosis, thoracic region; J90 Pleural effusion, not elsewhere classified; M47.896 Other spondylosis, lumbar region; S32.011D Stable burst fracture of first lumbar vertebra, subsequent encounter for fracture with routine healing; S32.021D Stable burst fracture of second lumbar vertebra, subsequent encounter for fracture with routine healing; X58.XXXD Exposure to other specified factors, subsequent encounter
CPT/HCPCS: 72146; 72148

== ENCOUNTER 2020-11-23 14:20 | Inpatient (IN) | payer MEDICARE, SELFPAY ==
[2020-11-23] VITALS (20 sets, daily range): BP systolic 108–186; BP diastolic 66–92; PULSE 94–121; RESP 13–30; TEMP 36.8–37.6; O2SAT 86–100; BMI 24.5
--- NOTE | ~2020-11-23 | XR_ITS ---
EXAMINATION: XR barium swallow modified DATE: 11/25/2020 10:10 INDICATION: Dysphagia TECHNIQUE: Modified barium esophagram was performed by myself to administered fluoroscopy, in conjun ction with speech pathologist who administered barium in varying consistencies as per speech patholog ist documentation. This was recorded on tape. A single fluoroscopic spot image was recorded. The DAP for this procedure was 2.0 Gycm2. Fluoroscopy exposure time was 2.0 minutes. FINDINGS: Oral stage: Adequate function. Pharyngeal phase: Adequate function. Laryngeal penetration: None. Aspiration: None. Laryngeal sensitivity: Present. IMPRESSION: Unremarkable modified barium swallow. Please refer to speech pathologist findings and spe [facility] feeding recommendations. Reviewed, dictated and finalized at location A. ROASTER IMPRESSION: Unremarkable modified barium swallow. Please refer to speech pathol ogist findings and specific feeding recommendations.
--- NOTE | ~2020-11-23 | MR_ITS ---
EXAMINATION: MR brain/brain stem wo/w con DATE: 11/24/2020 13:19 INDICATION: Acute altered mental status. Decreased responsiveness. TECHNIQUE: Magnetic resonance imaging (MRI) of the brain and brainstem was performed without and with 13 mL Multihance intravenous contrast. Sequences included sagittal and axial T1-weighted SE, axial d iffusion-weighted FS SE, axial T2*-weighted GRE, axial T2-weighted FLAIR, and axial T2-weighted FSE. Postcontrast axial and coronal T1-weighted SE was obtained. Apparent diffusion coefficient (ADC) maps were created. COMPARISON: None. FINDINGS: There are no areas of restricted diffusion to suggest acute infarction. No intracranial hemorrhage or abnormal intracranial mass lesion. There are scattered areas of nonspecific increased T2-weighted si gnal intensity in the cerebral white matter, predominantly involving the deep and periventricular whi te matter which is within normal limits for age. There are no intraparenchymal signal abnormalities s een on the other pulse sequences. Symmetric prominence of the sulci consistent with mild age-appropri ate diffuse cerebral volume loss. The ventricles are symmetric and normal in size. There are no abno rmal extra-axial fluid collections. Flow voids are seen in the cerebral arteries on the T2-weighted s equences consistent with their expected patency. Changes of bilateral intraocular lens replacement. M ild mucosal thickening in the bilateral ethmoid sinuses. Visualized orbits and soft tissues are unrem arkable. There are no areas of abnormal enhancement on the post contrast images. IMPRESSION: 1. No acute intracranial process. 2. Age-related changes including mild diffuse volume loss and mild scattered nonspecific periventricu lar predominant white matter T2 hyperintensity consistent with chronic small vessel ischemic disease. Reviewed, dictated and finalized at location A. ER TIRE CORD IMPRESSION: 1. No acute intracranial process. 2. Age-related changes including mild diffuse volume loss and mild scattered no nspecific periventricular predominant white matter T2 hyperintensity consistent with chronic small vessel ischemic disease.
--- NOTE | ~2020-11-23 | CT_ITS ---
EXAMINATION: CTA brain carotid EXAM DATE: 11/23/2020 17:18 INDICATION: Decreased responsiveness. TECHNIQUE: Noncontrast head CT. Spiral CTA of the carotid arteries was performed with intravenous i njection 100 cc of Omnipaque 350. Axial, coronal, sagittal reformatted images reviewed. Additional r eformatted images created on dedicated 3-D workstation. NASCET comparable standard used to assess th e degree of arterial stenosis. Spiral CT angiogram cerebral arteries performed with the same intrave nous injection of contrast. Source images of the brain CTA transferred to dedicated workstation for 3 -D rotational image creation. Coronal, sagittal maximum intensity pixel images also reviewed. The d ose-length product (DLP) for this examination was 1585.56 mGy-cm. The exposure was tailored accordi ng to patient size, and iterative reconstruction (ASIR) was used as additional dose reduction techniq ue. There is no prior study for comparison. FINDINGS: Mild bilateral carotid bulb arterial sclerosis with 0% stenosis bilaterally. There is bilat eral distal extracranial ICA tortuosity. Mild to moderate bilateral carotid siphon circumferential ar terial sclerosis without stenosis. The vertebral arteries are codominant. There is no carotid or dave tebral basilar arterial dissection or fibromuscular dysplasia. There are no cerebral artery aneurysms . There is symmetric cerebral artery arborization. The sagittal, transverse and sigmoid sinuses enhan ce normally, no venous sinus thrombosis. Internal cerebral veins also enhance normally. There is no acute intraparenchymal hemorrhage. No evidence of intraparenchymal brain mass lesion. N o evidence of acute infarction. There is mild periventricular and subcortical hypodensity, nonspecifi c but probably related to small vessel ischemic disease. There is moderate prominence of the sulci and ventricles related to cerebral atrophy. There is intracranial carotid arteriosclerosis. There is no mass effect or midline shift. There is no obstructive hydrocephalus suspected. There are no e xtra-axial collections. There are no calvarial acute fractures. Bilateral cataract surgery. Goiter. Advanced cervical arthropathy and disc disease at C5-6 and 6-7. IMPRESSION: 1. No acute findings. 2. Bilateral carotid bulb 0% stenosis. 3. Age-related intracranial findings. 4. Cervical spondylosis. 5. Multinodular goiter. Reviewed, dictated and finalized at location A. PMENT RECORDS SUPERVISOR
--- NOTE | ~2020-11-23 | XR_ITS ---
EXAMINATION: XR chest 1V portable EXAM DATE: 11/23/2020 21:28 INDICATION: Check placement of existing PICC line. TECHNIQUE: Portable AP frontal chest x-ray was obtained. Comparison is made to prior examination from earlier same date. FINDINGS: Tip of a right-sided line identified along the upper aspect of the right arm, adequate plac ement assuming this is a midline. Small amount of linear left basilar airspace disease most consisten t with atelectasis. No confluent consolidation, pneumothorax or pleural effusion suspected. There are bony degenerative changes. Thoracolumbar fracture which has been treated with methylmethacrylate. IMPRESSION: 1. Right midline, tip overlying expected position. Reviewed, dictated and finalized at location A. SPECIALIST
--- NOTE | ~2020-11-23 | XR_ITS ---
XR chest 1V portable DATE: 11/23/2020 15:29 INDICATION: Transient alteration of awareness. Hypertension. Coronary artery disease. History of tree st cancer. TECHNIQUE: Portable AP chest on November 23, 2020 at 1531 hours COMPARISON: 11/05/2020 AP and lateral chest FINDINGS: No pulmonary infiltrate or consolidation, pleural effusion or pulmonary vascular congestion or pneumothorax is evident. Heart size appears within normal limits. Is aortic arch calcification. No hilar or mediastinal enlarg ement is evident. Diffuse osteopenia. Thoracic and lumbar scoliosis. IMPRESSION: No active cardiopulmonary disease Aortic atherosclerosis Reviewed, dictated and finalized at location B. RER OPERATOR
[2020-11-23 14:25] LABS: Glucose Point of Care 169 (65-105)
--- NOTE | 2020-11-23 14:31 | ECG_ITS ---
Measurements Intervals [place] Rate: 137 P: AK: 0 QRS: -56 QRSD: 92 T: 126 QT: 297 QTc: 450 Interpretive Statements ATRIAL TACHYCARDIA WITH RAPID VENTRICULAR RESPONSE CHANGES TO SINUS TACHYCARDIA INFERIOR INFARCT, AGE INDETERMINATE ANTEROSEPTAL INFARCT, AGE INDETERMINATE BORDERLINE ST-T WAVE ABNORMALITY- HIGH LATERAL LEADS BASELINE WANDER- I, II, AVR, AVL, AVF, V1-V3, V6 ABNORMAL ECG Electronically Signed On 11-23-2020 14:52:30 CELLAR HAND by Jaun Winters D.O.
[2020-11-23] MEDS: NALOXONE HCL INJ 2 MG/2 ML AMP (14:33)
--- NOTE | 2020-11-23 14:48 | ED.GENADULT ---
HPI - General Adult General Chief complaint: Altered Mental Status Stated complaint: UNRESPONSIVE Source: EMS History of Present Illness HPI narrative: Patient is a 85 y/o female sent from [place] for altered mental status. She reportedly was at neurosurgery clinic at [facility] today for back pain and compression fracture. She was noted to be gradually declining in her mental status upon return. She is normally awake and oriented x 3 at baseline. EMS gave her Narcan with no significant improvement. She is unable to provide any history due to poor mental status. Related Data Home Medications Medication Instructions Recorded Confirmed latanoprost 1 drp OPHTHALMIC (EYE) HS 11/23/19 11/08/20 polyethylene glycol 3350 [Miralax] 17 g PO DAILY 08/15/20 11/08/20 torsemide 20 mg PO BID 08/15/20 11/08/20 tramadol 50 mg PO DAILY PRN 08/19/20 11/08/20 metoclopramide HCl 5 mg tablet 5 mg PO DAILY 09/27/20 11/08/20 insulin glargine 100 unit/mL (3 10 unit SUB-Q QPM ml 09/29/20 11/08/20 mL) subcutaneous pen insulin lispro 100 unit/mL See Rx Instructions .ROUTE .COMPLEX 09/29/20 11/08/20 subcutaneous pen linaclotide 145 mcg capsule 145 mcg PO DAILY 11/05/20 11/08/20 omeprazole 20 mg capsule,delayed 40 mg PO DAILY cap 11/05/20 11/08/20 release acetaminophen 500 mg capsule 500 mg PO Q6H PRN 11/08/20 11/08/20 cyclobenzaprine 5 mg tablet 5 mg PO BID PRN tablet 11/08/20 11/08/20 hydralazine 10 mg tablet 10 mg PO TID 11/08/20 11/08/20 linaclotide 145 mcg capsule 145 mcg PO DAILY 11/08/20 11/08/20 sennosides 8.6 mg tablet 8.6 mg PO DAILY 11/08/20 11/08/20 amlodipine [Norvasc] 10 mg PO DAILY 11/23/20 apixaban [Eliquis] mg 11/23/20 11/23/20 Allergies Allergy/AdvReac Type Severity Reaction Status Date / Time ciprofloxacin Allergy Unknown Anxiety Verified 11/23/20 14:32 dexamethasone Allergy Unknown Anxiety Verified 11/23/20 14:32 hydrochlorothiazide Allergy Unknown Anxiety Verified 11/23/20 14:32 triamterene Allergy Unknown Anxiety Verified 11/23/20 14:32 Review of Systems Review of Systems: ROS unobtainable: Yes unobtainable due to mental status [facility] Past Medical History Medical History Aortic stenosis Benign essential hypertension Burst fracture of lumbar vertebra with routine healing CAD in [place] artery Heart murmur History of breast cancer Hx of Crohn's disease Lumbar pain with radiation down right leg Mixed hyperlipidemia Nonrheumatic aortic (valve) stenosis Osteoporosis Overflow incontinence Peripheral neuropathy Post menopausal problems Type 2 diabetes mellitus with diabetic polyneuropathy Type 2 diabetes mellitus with hyperglycemia, with long-term current use of insulin (~1979) Surgical History Surgical History History of vertebroplasty (~10/07/20) L1 burst fracture - Dr Rosario at [place] Family History Family History Grandparent Diabetes mellitus Father Hypertension Cerebrovascular accident Mother Family history of arthritis Acute myocardial infarction, Onset Age: 84 Other Family history of hearing loss Family history of osteoporosis Social History Social History Smoking status: Never smoker Second hand tobacco smoke exposure: No Alcohol intake: current Drinks per week: 1 Substance use: never Substance use type: does not use Gender identity (if verbalized by the patient): Female Spiritual care concerns: No Agree to blood products: Yes Exam Const: General: no acute distress and well developed Orientation/consciousness: patient obtunded HENMT: Head: normocephalic Ears: external ears normal General nose exam: Normal external nose present Eyes: General: appearance normal, both eyes and all related structures Conjunctivae: conjunctivae normal Neck: Neck: normal
[2020-11-23 14:50] LABS: Basophils Percent Auto 0.4 % (0.2-1.2); Eosinophils Absolute Auto 0.1 K/mm3 (0-0.3); Eosinophils Percent Auto 0.8 % (0-4.4); Immature Granulocyte Absolute 0.07 K/mm3 (0.00-0.031); Immature Granulocyte Percent A 0.7 % (0-0.5); Lymphocytes Absolute Auto 0.85 K/mm3 (0.9-3.2); Lymphocytes Percent Auto 8.5 % (18.3-44.2); Mean Corpuscular HGB Conc 31.8 g/dl (32-36); Mean Corpuscular Hemoglobin 28.7 pg (26-34); Mean Corpuscular Volume 90.3 fl (80-100); Mean Platelet Volume 10.4 fl (7.4-10.4); Monocytes Absolute Auto 0.6 K/mm3 (0.1-0.6); Monocytes Percent Auto 5.9 % (2.6-8.5); Neutrophils Absolute Auto 8.4 K/mm3 (1.3-6.7); Neutrophils Percent Auto 83.7 % (45.5-73.1); Platelet Count Result 314 k/mm3 (150-375); Red Blood Count 4.87 M/mm3 (4.2-5.4)
[2020-11-23 14:52] LABS: Alveolar/Arterial O2 Gradient 7.4 mmHg; Fractional Inspired Oxygen 28 %; HCO3 ABG 30.3 mEq/l (22.0-26.0); Oxygen Content ABG 18.4 %vol (16.0-22.0); Oxygen Saturation ABG 98.9 % (95.0-100.0); Oxyhemoglobin 97.8 % THb (90.0-100.0); PCO2 ABG 42.4 mmHg (35.0-45.0); PO2 ABG 142.2 mmHg (80.0-100.0); PO2 FiO2 Ratio Arterial Blood 5.08 %; Total Hemoglobin 13.2 g/dL (12.0-18.0); pH ABG 7.472 (7.350-7.450)
[2020-11-23 14:52] LABS: Add Urine Microscopic? YES; Appearance Urine Cloudy (Clear); Bacteria Urine 2+ /hpf; Bilirubin Urine Negative (Negative); Blood Urine Negative (Negative); Color Urine Yellow (Yellow); Glucose Urine UA Negative (Negative); Ketones Urine Negative (Negative); Leukocyte Esterase Ur 1+ LEU/UL (Negative); Mucus Urine Rare /lpf; Nitrate Urine Negative (Negative); Protein Urine 2+ mg/dL (Negative); Specific Grav Ur 1.012 (1.001-1.035); Squamous Epithelial Cell Urine Moderate /hpf (Few); Urobilinogen Urine Negative mg/dL (<2.0); WBC Urine 31-50 /hpf
[2020-11-23 14:53] LABS: Device NASAL CANNULA; Modified Allen's Test Pass; Site Drawn LEFT RADIAL
[2020-11-23 14:59] LABS: Alanine Aminotransferase 13 U/L (4-35); Albumin Level 4.3 g/dL (3.5-5.1); Alkaline Phosphatase 129 U/L (38-126); Anion Gap 5 mmol/L (8-16); Aspartate Amino Transferase 33 U/L (14-36); Bilirubin,Total 0.5 mg/dL (0.2-1.3); Blood Urea Nitrogen 25 mg/dL (7-17); Calcium 10.1 mg/dL (8.4-10.2); Carbon Dioxide 38 mmol/L (22-30); Chloride 96 mmol/L (98-107); Estimated Glomerular Filt Rate 36; Glucose 159 mg/dL (65-105); Potassium 3.6 mmol/L (3.4-5.0); Sodium 139 mmol/L (137-145)
[2020-11-23 15:07] LABS: Amphetamine Screen Urine Negative (Negative); Barbiturate Screen Urine Negative (Negative); Benzodiazepines Screen Urine Negative (Negative); Cannabinoid Screen Urine Negative (Negative); Cocaine Screen Urine Negative (Negative); Methadone Screen Urine Negative (Negative); Opiate Screen Urine Negative (Negative); Phencyclidine Screen Urine Negative (Negative)
[2020-11-23 15:12] LABS: Troponin I 0.093 ng/mL (0.000-0.034)
[2020-11-23 16:59] LABS: INR 1.3; Prothrombin Time 16.7 Seconds (11.1-14.7)
[2020-11-23 17:00] LABS: Partial Thromboplastin Time 34.4 SECONDS (22.3-36.8)
--- NOTE | 2020-11-23 17:19 | PC.NURSE ---
PT TAKEN TO CT SCAN WITH THIS RN ACCOMPANYING TO MONITOR PT. NO COMPLICATIONS AND THE PT TOLERATED SCAN AND INJECTION WELL. BROUGHT BACK TO ROOM. DAUGHTER AT BEDSIDE. WILL CONTINUE TO MONITOR
[2020-11-23 18:23] LABS: Troponin I 0.048 ng/mL (0.000-0.034)
--- NOTE | 2020-11-23 19:20 | PC.NURSE ---
Bedside report received from MIC Seaman. Pt resting on stretcher at present. Nods head yes and no to questions but is nonverbal at this time. Pt appears to be a-fib on monitor. Daughter at bedside states that she doesn't think this is normal for the patient. Pt denies needs at present. Admit orders received, made aware of busy floors and attempting to obtain bed assignment.
--- NOTE | 2020-11-23 19:30 | PC.NURSE ---
Also note pt has a PICC line to right upper arm, daughter states that the patient had this placed over the weekend at [place] because pt's BUN and creat were up, and they suspected the patient had a UTI.
--- NOTE | 2020-11-23 20:26 | PC.NURSE ---
Attempt to call report to floor, floor unable to take at this time. States will return call hardik.
--- NOTE | 2020-11-23 20:50 | ADMGEN ---
This patient, Sophia Webster, was admitted to Medical Room 345-01. Patient/family oriented to hospital policies and general routines including ID bracelet, bed and alarms, visiting hours, pain management, procedures, bathroom and other care routines, personal items, smoking policy, room service/diet, and visiting hours. Information on how to activate the Rapid Response Team has been discussed. Patient/Family are encouraged to report perceived risks to care and to ask questions if they do not understand what they are told or what they should do.
[2020-11-23 21:02] LABS: Troponin I 0.096 ng/mL (0.000-0.034)
[2020-11-23] MEDS: SODIUM CHLORIDE 0.9% IV 1,000 ML 125 ML IV CONT (21:02)
[2020-11-23 22:03] LABS: Glucose Point of Care 108 (65-105)
[2020-11-24] VITALS (11 sets, daily range): BP systolic 153–184; BP diastolic 64–86; PULSE 85–111; RESP 16–17; TEMP 36.3–37.1; O2SAT 97–100
--- NOTE | 2020-11-24 | ECHOL_ITS ---
Patient Info Name: Sophia Webster Age: 85 years : 1935 Gender: Female Ht: 65 in Wt: 147 lbs BSA: 1.76 m2 HR: 93 bpm BP: 137 / 71 mmHg Technical Quality: Good Exam Date: 11/24/2020 1:38 PM Exam Location: [facility] Pulmonary Exam Room: [facility] Patient Status: Inpatient Admit Date: 11/24/2020 Staff Ordering Physician: Jaun Winters DO Computer System Technician: Maribel Snyder RDCS Attending Provider: Sierra Fields PA-C Exam Type: CA echo limited Study Info Indications - EVAL FOR WMA ELEVATED TROPONINS Limited two-dimensional transthoracic echocardiogram is performed. Summary 1. Limited echo to assess for wall motion abnormality. 2. Left ventricular chamber dimension is normal. 3. Left ventricular systolic function is hyperdynamic, estimated at >70%. 4. There is moderately increased left ventricular wall thickness. 5. The left ventricular diastolic function is indeterminate. 6. There is moderate aortic valve stenosis by visual estimation in 3 chamber apical view. 7. There is severe aortic valve sclerosis. Left Ventricle Left ventricular chamber dimension is normal. Left ventricular systolic function is hyperdynamic, estimated at >70%. There is moderately increased left ventricular wall thickness. The left ventricular diastolic function is indeterminate. Aortic Valve There is moderate aortic valve stenosis by visual estimation in 3 chamber apical view. There is severe aortic valve sclerosis. Report Signatures Amended by Jaun Winters DO on 11/24/2020 15:48
--- NOTE | 2020-11-24 01:38 | PM.IMHP ---
H&P: HPI History of Present Illness Date/Time: 11/24/20 01:38 Chief Complaint: Acute Altered Mental status Narrative: This is an 85 year old Diabetic female with known history of HTN, burst fracture of lumbar vertebra, on chornic anticoagulation with Eliquis for past pulmonary embolism at [facility] who was sent to the hospital yesterday secondary to altered mental status from the Rehab. The patient was apparently at the neurosurgery clinic at [place] earlier today for back pain and compression fracture. She was noted to be gradually declining in her mental status upon return. She is normally awake and oriented x 3 at baseline. EMS gave her Narcan with no significant improvement. The patient was evaluated in the ER and no significant history was obtainable due to her altered mental status. The patient's daughter tells me that the patient had been doing well in assisted living until [place] when she suffered her lumbar vertebral fracture. Over the weekend her daughter noticed that the patient was having intermittent confusion. Her daughter says that the patient has not been on her oral tramadol since this weekend due to altered mental status. Head and neck CTA was unremarkable for any acute intracranial pathology. Urinalysis was abnormal and the patient was started on IV antibiotics for a possible UTI. On my encounter with the patient tonight she is awake and only oriented to herself. When I ask her what happened and ask for any details of what happened to her yesterday she says, I don't know . She is currently only complaining of ongoing back pain. No other significant history is obtainable from the patient. EKG from the ER demonstrated atrial fibrillation w/ RVR with a HR of 137 bpm. Currently the patient has a heart rate in the low 100s and continues to be in atrial fibrillation which is new to the patient according to her daughter. Review of Systems Review of Systems: ROS unobtainable: Yes unobtainable due to mental status PMFSH Past Medical History Medical History Aortic stenosis Benign essential hypertension Burst fracture of lumbar vertebra with routine healing CAD in [place] artery Heart murmur History of breast cancer Hx of Crohn's disease Lumbar pain with radiation down right leg Mixed hyperlipidemia Nonrheumatic aortic (valve) stenosis Osteoporosis Overflow incontinence Peripheral neuropathy Post menopausal problems Type 2 diabetes mellitus with diabetic polyneuropathy Type 2 diabetes mellitus with hyperglycemia, with long-term current use of insulin (~1979) Surgical History Surgical History History of vertebroplasty (~10/07/20) L1 burst fracture - Dr Rosario at [place] Family History Family History Grandparent Diabetes mellitus Father Hypertension Cerebrovascular accident Mother Family history of arthritis Acute myocardial infarction, Onset Age: 84 Other Family history of hearing loss Family history of osteoporosis Social History Social History Smoking status: Never smoker Second hand tobacco smoke exposure: No Alcohol intake: unknown Drinks per week: 1 Substance use: unknown Substance use type: does not use Gender identity (if verbalized by the patient): Female Spiritual care concerns: No Agree to blood products: Yes Meds Home Medications and Allergies Home Medications Medication Instructions Recorded Confirmed Type pravastatin 10 mg tablet 10 mg PO QPM #90 tablet 03/25/20 11/23/20 Rx lidocaine 5 % topical patch 1 patch TOPICAL DAILY #30 each 06/08/20 11/23/20 Rx ondansetron 4 mg PO Q6H PRN #10 tablet 08/15/20 11/23/20 Rx polyethylene glycol 3350 [Miralax] 17 g PO DAILY 08/15/20 11/23/20 History torsemide 20 mg PO DAILY 08/15/20 11/23/20 Histor
[2020-11-24] MEDS: SODIUM CHLORIDE 0.9% IV 1,000 ML 125 ML IV CONT (05:13)
[2020-11-24 06:12] LABS: Basophils Absolute Auto 0.1 K/mm3 (0.0-0.1); Basophils Percent Auto 0.6 % (0.2-1.2); Eosinophils Absolute Auto 0.1 K/mm3 (0-0.3); Eosinophils Percent Auto 1.5 % (0-4.4); Hemoglobin 10.6 g/dL (12.0-15.0); Immature Granulocyte Absolute 0.06 K/mm3 (0.00-0.031); Immature Granulocyte Percent A 0.7 % (0-0.5); Lymphocytes Absolute Auto 0.82 K/mm3 (0.9-3.2); Lymphocytes Percent Auto 9.4 % (18.3-44.2); Mean Corpuscular HGB Conc 31.2 g/dl (32-36); Mean Corpuscular Volume 89.9 fl (80-100); Mean Platelet Volume 10.2 fl (7.4-10.4); Monocytes Absolute Auto 0.7 K/mm3 (0.1-0.6); Monocytes Percent Auto 8.3 % (2.6-8.5); Neutrophils Absolute Auto 6.9 K/mm3 (1.3-6.7); Neutrophils Percent Auto 79.5 % (45.5-73.1); Platelet Count Result 234 k/mm3 (150-375); Red Blood Count 3.78 M/mm3 (4.2-5.4); White Blood Count 8.7 K/mm3 (4.5-10.0)
[2020-11-24 06:18] LABS: Glucose Point of Care 81 (65-105)
[2020-11-24] MEDS: dilTIAZem HCl INJ 25 MG/5 ML VIAL 7 MG IV PUSH (06:28)
[2020-11-24 06:31] LABS: Anion Gap 5 mmol/L (8-16); Blood Urea Nitrogen 22 mg/dL (7-17); Calcium 9.1 mg/dL (8.4-10.2); Carbon Dioxide 30 mmol/L (22-30); Chloride 104 mmol/L (98-107); Estimated CRCL calculation 30 ml/min; Estimated Glomerular Filt Rate 47; Glucose 95 mg/dL (65-105); Magnesium 1.7 mg/dL (1.6-2.3); Potassium 3.6 mmol/L (3.4-5.0); Sodium 139 mmol/L (137-145)
[2020-11-24 06:46] LABS: Troponin I 0.109 ng/mL (0.000-0.034)
[2020-11-24 07:33] LABS: Folic Acid > 20.0 ng/mL (2.76->20)
[2020-11-24] MEDS: LIDOCAINE 5% PATCH 1 PATCH TOPICAL (08:33)
--- NOTE | 2020-11-24 11:33 | PM.IMPN ---
Progress Note: A&P Assessment and Plan (1) Altered mental status: Qualifiers: Altered mental status type: unspecified Qualified Code(s): R41.82 - Altered mental status, unspecified Code(s): R41.82 - Altered mental status, unspecified Status: Acute Assessment and Plan: She was noted to be poorly responsive upon arrival. Etiology unclear at this time, however metabolic encephalopathy secondary to UTI considered vs CVA. Electrolytes stable, TSH, B12, and folate within normal limits. Upon my initial evaluation, she is A&O x4 but does still appear to be a bit confused. Continue IV fluid rehydration Continue with treatment for urinary tract infection as above MRI brain is pending She was made NPO due to decreased responsiveness. Swallow eval ordered. Advance diet based on ST recommendations (2) UTI (urinary tract infection): Qualifiers: Hematuria presence: without hematuria Urinary tract infection type: site unspecified Qualified Code(s): N39.0 - Urinary tract infection, site not specified Code(s): N39.0 - Urinary tract infection, site not specified Status: Acute Assessment and Plan: Urinalysis grossly abnormal upon presentation. Her daughter reports 3 previous UTIs within the past year. She did have a Pseudomonas positive urinary tract infection in September 2020. She is afebrile and without leukocytosis. Continue IV Fortaz given history of Pseudomonas. IV Rocephin discontinued. She received 1 dose. Urine cultures pending. Await results and tailor antibiotics accordingly (3) Atrial fibrillation: Qualifiers: Atrial fibrillation type: unspecified Qualified Code(s): I48.91 - Unspecified atrial fibrillation Code(s): I48.91 - Unspecified atrial fibrillation Status: Acute Assessment and Plan: EKG upon presentation demonstrated atrial fibrillation with rapid ventricular response with heart rate in the 130s. This appears to be in new onset. She is on Eliquis given history of recent pulmonary embolism. Heart rate improved following IV Cardizem bolus. She is established with assembly and packing supervisor Dr. Winters who has been consulted and his input is appreciated Eliquis on hold right now as she is NPO, however will be resumed following bedside swallow evaluation. If she needs to remain NPO, Lovenox can be initiated. TTE ordered, however patient recently had echo in October and had been recommended by Dr. Winters to obtain a MONET. Will cancel TTE. Await further input from Dr. Winters regarding MONET. Continue monitoring on telemetry (4) Elevated troponin: Code(s): R77.8 - Other specified abnormalities of plasma proteins Status: Acute Assessment and Plan: Troponin leak is likely secondary to new onset atrial fibrillation. She is asymptomatic. Appreciate cardiology evaluation Monitor clinically for symptoms Continue telemetry (5) Burst fracture of lumbar vertebra with routine healing: Code(s): S32.001D - Stable burst fracture of unspecified lumbar vertebra, subsequent encounter for fracture with routine healing Status: Acute Assessment and Plan: Onset September 2020. She has been having significant lower back pain since that time. She has been evaluated by pain management and has followed-up with neurosurgery at [place]. She had an MRI of the back about 1 week ago and has follow-up with pain management scheduled. She will need to continue with outpatient follow-up with pain management and neuro surgery IV Tylenol available as needed for pain Lidocaine patch and additional supportive care measures for pain At this time, will avoid narcotic pain medication given patient's mental status (6) Type 2 diabetes mellitus with hyperglycemia, with long-term current use of insulin: Onset Date: ~1979 Code(s): E11.65 - Type 2 diabetes mellitus with hyperglycemia; Z79.4 - intermediate (current) use
[2020-11-24 11:41] LABS: Glucose Point of Care 85 (65-105)
--- NOTE | 2020-11-24 12:03 | WPDNEURCNPN ---
Assessment and Plan Assessment and plan (1) Altered mental status: Qualifiers: Altered mental status type: unspecified Qualified Code(s): R41.82 - Altered mental status, unspecified Code(s): R41.82 - Altered mental status, unspecified Status: Acute (2) Bilateral lower extremity edema: Code(s): R60.0 - Localized edema Status: Acute (3) Burst fracture of lumbar vertebra with routine healing: Code(s): S32.001D - Stable burst fracture of unspecified lumbar vertebra, subsequent encounter for fracture with routine healing Status: Acute (4) Benign essential hypertension: Code(s): I10 - Essential (primary) hypertension Status: Chronic (5) Aortic stenosis: Qualifiers: Cardiac valve disease etiology: etiology unspecified Qualified Code(s): I35.0 - Nonrheumatic aortic (valve) stenosis Code(s): I35.0 - Nonrheumatic aortic (valve) stenosis Status: Chronic (6) Type 2 diabetes mellitus with hyperglycemia, with long-term current use of insulin: Onset Date: ~1979 Code(s): E11.65 - Type 2 diabetes mellitus with hyperglycemia; Z79.4 - long term care pharmacist (current) use of insulin Status: Chronic (7) Peripheral neuropathy: Code(s): G62.9 - Polyneuropathy, unspecified Status: Acute (8) Lumbar pain with radiation down right leg: Code(s): M54.5 - Low back pain Status: Chronic Additional Plan chronic pain for which no surgical intervention has been recommended, on anticoagulation therapy for ongoing history of pulmonary emboli but as per the journeyman apprentice electricians no evidence of atrial fibrillation at this particular time, exam as mention we will try to control the pain according and slowly increase as warranted Consult date: 11/24/20 Time Seen: 11:30 HPI: Sophia Webster is a 85 year old female Admitted to the hospital for the complaints of acute changes in the mental status patient is a known case of 1. Hypertension, 2. Aortic stenosis 3. Diabetes mellitus with diabetic neuropathy 4. History of chronic anticoagulation therapy for pulmonary embolism. evaluation at this particular time includes head and neck CTA which revealed no evidence of carotid disease or any stenosis though incidental finding of nodular goiter, having had the thoracic MRI with documentation of T12 compression fracture and 20% left anterior vertebral body height loss which was new since October 01, 2020 additionally moderate thoracic spondylosis, MRI of the lumbar spine again documenting acute versus subacute T12 compression fracture which was new from October 01, 2020 and also L1 burst fracture and subacute L2 compression fracture again stable from October 01, 2020, routine blood studies with the GFR of 47, elevated troponin, and pain medications include lidocaine patch daily scheduled. patient herself as well as the Mike NUNEZ Review of Systems Review of Systems: All systems reviewed & are unremarkable except as noted in HPI and below PMFSH Past Medical History Medical History Aortic stenosis Benign essential hypertension Burst fracture of lumbar vertebra with routine healing CAD in [place] artery Heart murmur History of breast cancer Hx of Crohn's disease Lumbar pain with radiation down right leg Mixed hyperlipidemia Nonrheumatic aortic (valve) stenosis Osteoporosis Overflow incontinence Peripheral neuropathy Post menopausal problems Type 2 diabetes mellitus with diabetic polyneuropathy Type 2 diabetes mellitus with hyperglycemia, with long-term current use of insulin (~1979) Surgical History Surgical History History of vertebroplasty (~10/07/20) L1 burst fracture - Dr Rosario at [place] Family History Family History Grandparent Diabetes mellitus Father Hypertension Cerebrovascular accident Mot
--- NOTE | 2020-11-24 12:08 | PM.CNCAR ---
Assessment and Plan Assessment and plan (1) Elevated troponin: Code(s): R77.8 - Other specified abnormalities of plasma proteins Status: Acute Assessment and Plan: No clinical symptoms to suggest ACS. Troponins trended up but mildly elevated. Could be due to UTI with CKD and related to type II infarct. Obtain limited echo to assess wall motion abnormality. (2) UTI (urinary tract infection): Qualifiers: Hematuria presence: without hematuria Urinary tract infection type: site unspecified Qualified Code(s): N39.0 - Urinary tract infection, site not specified Code(s): N39.0 - Urinary tract infection, site not specified Status: Acute Assessment and Plan: On antibiotics. Manged by hospitalist. (3) Chronic kidney disease (CKD) stage G4/A1, severely decreased glomerular filtration rate (GFR) between 15-29 mL/min/1.73 square meter and albuminuria creatinine ratio less than 30 mg/g: Code(s): N18.4 - Chronic kidney disease, stage 4 (severe) Status: Acute (4) Benign essential hypertension: Code(s): I10 - Essential (primary) hypertension Status: Chronic Assessment and Plan: High. Start Toprol XL 50 mg daily. (5) Aortic stenosis: Qualifiers: Cardiac valve disease etiology: etiology unspecified Qualified Code(s): I35.0 - Nonrheumatic aortic (valve) stenosis Code(s): I35.0 - Nonrheumatic aortic (valve) stenosis Status: Chronic Assessment and Plan: Stable. (6) PAT (paroxysmal atrial tachycardia): Code(s): I47.1 - Supraventricular tachycardia Status: Acute Assessment and Plan: Start Toprol XL 50 mg daily. History of Present Illness History of Present Illness Consult date/time: 11/24/20 12:08 Reason for consult: PAF and elevated troponin 85 yr old woman who is my regular cardiology patient who presented to ED for mental status changes. She has a history of CAD (had cardiac cath in 2013 at [place], [place] and had non-obstructive plaques per patient), , hypertension, DM, CK stage IV, dyslipidemia, pulm embolism on Eliquis. Her daughter is at bedside. She reports that at rehab she was confused and that was the reason for coming to ER. Currently she is somnolent but I was able to speak to her. She states she had severe back pain and could not sleep well last night after arriving to hospital. Denies chest pain, sob. Troponins were checked which showed .048 then .096, then .109. EKG shows intermittent atrial tachycardia and she had it on telemetry also, but no atrial fibrillation. She does have UTI and receiving antibiotics. Previously, states that she had a lot done at [facility] recently regarding her lumbar spine, she had pulm embolism. She is in rehab now. She had swelling of her legs that is improving on higher doses of Torsemide 40 mg daily and it is her right leg/foot that has moderate edema and left leg with mild edema. She is not sure what medication she is given at rehab now but she knows she is on Torsemide 40 mg daily. Normally, she resides at [place] and ambulates with a walker for up to 15 minute and gets NIEVES with it. Due to not being able to get out much, she noted that when she does walk she is more limited at shorter distance due to NIEVES. Denies chest pain, orthopnea, PND, palpitations. CARDIOVASCULAR PROCEDURES ECHO/MUGA: 11/05/20 Echo: EF 70%, mod LVH, grade I diastolic dysfunction, mod (OSVALDO 1.4 cm2) but it appears more severe; consider MONET if clinically indicated. 12/08/19 Echo: EF 65-70%, mod LVH, grade I diastolic dysfunction, mild LAE, mod (OSVALDO 1.1 cm2), RVSP 54 mmHg, trace PI. Echo (EF 65-70%, mod LVH, grade I diastolic dysfunction (E/E' 16), mod MAC, mod valve area 1.1 cm2, trace TR.) - 01/02/2019 ELECTROPHYSIOLOGY: 08/27/20 EKG: Sinus rhythm changes to atrial tachycardia, PAC's and PVC's, inferior and anteroseptal infarct, borderline ST-T wave in high lateral leads. EKG (Sinus b
[2020-11-24] MEDS: hydrALAZINE 10 MG TABLET PO ×2 (14:08→20:11)
--- NOTE | 2020-11-24 14:14 | PCSTNOTE ---
Please refer to the Bedside Swallow Evaluation in the EMR. Please note, silent aspiration cannot be ruled out at bedside.
--- NOTE | 2020-11-24 14:29 | PC.NURSE ---
On 11/24/20, the student, [Ghada Syed ], provided care and completed [employer] documentation on this patient. I have reviewed the student's documentation and agree with the findings.
--- NOTE | 2020-11-24 14:31 | PC.NURSE ---
On 11/24/20, the student, [Nupur Tucker ], provided care and completed [facility] documentation on this patient. I have reviewed the student's documentation and agree with the findings.
[2020-11-24] MEDS: SODIUM CHLORIDE 0.9% IV 1,000 ML 75 ML IV CONT (17:47)
[2020-11-24] MEDS: traMADol HCL (*CRX) 50 MG TABLET PO (17:47)
[2020-11-24] MEDS: APIXABAN 5 MG TABLET PO (17:48)
[2020-11-24 17:52] LABS: Glucose Point of Care 65 (65-105)
--- NOTE | 2020-11-24 17:52 | PC.NURSE ---
Pt blood sugar 65, since pt is now able to eat she would prefer to drink juice instead of what we have for the hypoglycemia protocol. 2 juices provided, will recheck blood sugar in 15 min.
[2020-11-24 18:09] LABS: Glucose Point of Care 119 (65-105)
[2020-11-24] MEDS: INSULIN GLARGINE (*BKC) 100 UNITS/ML 10 UNITS SUB-Q (20:14)
[2020-11-24 20:39] LABS: Glucose Point of Care 220 (65-105)
[2020-11-25] VITALS (11 sets, daily range): BP systolic 128–156; BP diastolic 55–67; PULSE 71–87; RESP 16–18; TEMP 36–36.6; O2SAT 98–100
[2020-11-25] MEDS: hydrALAZINE 10 MG TABLET PO ×3 (06:41→22:06)
[2020-11-25 06:56] LABS: Hematocrit 32.5 % (37.0-47.0); Hemoglobin 10.1 g/dL (12.0-15.0); Mean Corpuscular HGB Conc 31.1 g/dl (32-36); Mean Corpuscular Volume 93.4 fl (80-100); Mean Platelet Volume 10.1 fl (7.4-10.4); Platelet Count Result 219 k/mm3 (150-375); Red Blood Count 3.48 M/mm3 (4.2-5.4); Red Cell Distribution Width 15.4 % (11.5-14.5); White Blood Count 7.2 K/mm3 (4.5-10.0)
[2020-11-25 07:12] LABS: Anion Gap 2 mmol/L (8-16); Blood Urea Nitrogen 23 mg/dL (7-17); Calcium 8.2 mg/dL (8.4-10.2); Carbon Dioxide 28 mmol/L (22-30); Chloride 106 mmol/L (98-107); Estimated CRCL calculation 28 ml/min; Estimated Glomerular Filt Rate 43; Glucose 85 mg/dL (65-105); Potassium 3.8 mmol/L (3.4-5.0); Sodium 136 mmol/L (137-145)
[2020-11-25 07:39] LABS: Glucose Point of Care 75 (65-105)
[2020-11-25] MEDS: METOPROLOL SUCCINATE EXT REL 50 MG TABCR PO (08:31)
[2020-11-25] MEDS: amLODIPine BESYLATE 5 MG TABLET 10 MG PO (08:31)
[2020-11-25] MEDS: LIDOCAINE 5% PATCH 1 PATCH TOPICAL (08:31)
[2020-11-25] MEDS: APIXABAN 5 MG TABLET PO ×2 (08:31→17:21)
[2020-11-25] MEDS: SODIUM CHLORIDE 0.9% IV 1,000 ML 75 ML IV CONT (08:32)
[2020-11-25] MEDS: traMADol HCL (*CRX) 50 MG TABLET PO (08:34)
--- NOTE | 2020-11-25 09:55 | PM.PNCARD ---
Progress Note: A&P Assessment and Plan (1) Elevated troponin: Code(s): R77.8 - Other specified abnormalities of plasma proteins Status: Acute Assessment and Plan: No clinical symptoms to suggest ACS. Troponins trended up but mildly elevated. Could be due to UTI with CKD and related to type II infarct. Limited echo shows no wall motion abnormality to suggest ACS with EF 70%. (2) UTI (urinary tract infection): Qualifiers: Hematuria presence: without hematuria Urinary tract infection type: site unspecified Qualified Code(s): N39.0 - Urinary tract infection, site not specified Code(s): N39.0 - Urinary tract infection, site not specified Status: Acute Assessment and Plan: On antibiotics. Manged by hospitalist. (3) Chronic kidney disease (CKD) stage G4/A1, severely decreased glomerular filtration rate (GFR) between 15-29 mL/min/1.73 square meter and albuminuria creatinine ratio less than 30 mg/g: Code(s): N18.4 - Chronic kidney disease, stage 4 (severe) Status: Acute (4) Benign essential hypertension: Code(s): I10 - Essential (primary) hypertension Status: Chronic Assessment and Plan: Improved. (5) Aortic stenosis: Qualifiers: Cardiac valve disease etiology: etiology unspecified Qualified Code(s): I35.0 - Nonrheumatic aortic (valve) stenosis Code(s): I35.0 - Nonrheumatic aortic (valve) stenosis Status: Chronic Assessment and Plan: Stable. Limited echo shows moderate . (6) PAT (paroxysmal atrial tachycardia): Code(s): I47.1 - Supraventricular tachycardia Status: Acute Assessment and Plan: On Toprol XL 50 mg daily to suppress ectopics and PAT. Subjective Date/time seen: 11/25/20 09:55 Patient reports weakness but not confused. No chest pains or sob. 8/10 back pain. Exam Const: General: cooperative, healthy appearing and comfortable Resp: Auscultation: clear to auscultation bilaterally, no crackles, no rales, no rhonchi and no wheezes Cardio: Jugular venous distension: no JVD Rate: regular rate Heart sounds: Murmur heart sound present (IV/ systolic murmur RICS) Peripheral pulses: dorsalis pedis present GI: GI Palp: No abdominal tenderness and Yes Soft to palpation Neuro: General: oriented to person, oriented to place and oriented to time Extrem: Right lower extremity: no edema Left lower extremity: no edema Objective Data Vital Signs Vital Signs: Vital Signs - 24 hr 11/24/20 12:00 11/24/20 13:47 11/24/20 16:00 Temperature 97.3 F L 97.7 F Pulse Rate 85 85 85 Respiratory Rate 17 16 Blood Pressure 184/76 H 156/66 H Pulse Oximetry 99 100 11/24/20 20:00 11/24/20 20:49 11/25/20 00:00 Temperature 97.9 F 97.7 F Pulse Rate 90 94 85 Respiratory Rate 16 16 16 Blood Pressure 175/69 H 156/67 H Pulse Oximetry 100 100 100 11/25/20 00:14 11/25/20 04:00 11/25/20 08:00 Temperature 96.8 F L Pulse Rate 87 77 79 Respiratory Rate 16 Blood Pressure 139/63 Pulse Oximetry 99 11/25/20 08:31 11/25/20 09:17 Temperature Pulse Rate 83 Respiratory Rate Blood Pressure Pulse Oximetry 98 Intake/Output Intake/Output: Intake & Output 11/22/20 11/23/20 11/24/20 11/25/20 23:59 23:59 23:59 23:59 Intake Total 50 2320 1810 Output Total 1350 350 Balance 50 970 1460 Meds/Results Medications: Active Medications Generic Name Dose Route Start Last Admin Trade Name Freq PRN Reason Stop Dose Admin Amlodipine Besylate 10 mg 11/25/20 09:00 11/25/20 08:31 Amlodipine Besylate 5 Mg Tablet PO 10 mg DAILY [facility] Administration Apixaban 5 mg 11/24/20 17:00 11/25/20 08:31 Apixaban 5 Mg Tablet PO 5 mg BID VA Administration Dextrose 12.5 gm 11/24/20 02:13 Dextrose 50% 25 Gm/50 Ml Syringe IV PUSH PRN PRN Hypoglycemia Protocol Glucagon 1 mg 11/24/20 02:13 Glucagon For Inj 1 Mg Vial IM PRN PRN Hypo
[2020-11-25 12:17] LABS: Glucose Point of Care 196 (65-105)
--- NOTE | 2020-11-25 12:29 | PM.IMPN ---
Progress Note: A&P Assessment and Plan (1) Altered mental status: Qualifiers: Altered mental status type: unspecified Qualified Code(s): R41.82 - Altered mental status, unspecified Code(s): R41.82 - Altered mental status, unspecified Status: Acute Assessment and Plan: She was noted to be poorly responsive upon arrival. Most likely related to metabolic encephalopathy secondary to UTI. Electrolytes stable, TSH, B12, and folate within normal limits. head/ neck CTA and brain MRI negative for acute findings. She is currently A&Ox4 and confusion seems to have resolved. Discontinue IV fluids. Patient has been adequately rehydrated and tolerating p.o. intake. Continue with treatment for urinary tract infection as described below She was initially made NPO due to decreased responsiveness. she had bedside swallow study and MBS which did not demonstrate evidence for aspiration. Regular diet has been resumed and she is tolerating well (2) UTI (urinary tract infection): Qualifiers: Hematuria presence: without hematuria Urinary tract infection type: site unspecified Qualified Code(s): N39.0 - Urinary tract infection, site not specified Code(s): N39.0 - Urinary tract infection, site not specified Status: Acute Assessment and Plan: Urinalysis grossly abnormal upon presentation. Her daughter reports 3 previous UTIs within the past year. She did have a Pseudomonas positive urinary tract infection in September 2020. She is afebrile and without leukocytosis. urine culture shows >100,000 CFU Klebsiella pneumoniae. Transition to IV Rocephin based on susceptibility report. IV Ceftazidime discontinued. She received 2 doses. discontinue [place] and perform voiding trial (3) Atrial fibrillation: Qualifiers: Atrial fibrillation type: unspecified Qualified Code(s): I48.91 - Unspecified atrial fibrillation Code(s): I48.91 - Unspecified atrial fibrillation Status: Acute Assessment and Plan: EKG upon presentation demonstrated atrial fibrillation with rapid ventricular response with heart rate in the 130s. This appears to be new onset. She is on Eliquis given history of recent pulmonary embolism. Heart rate improved following IV Cardizem bolus. She is established with circuit court magistrate Dr. Winters who has been consulted and his input is appreciated Continue Eliquis Metoprolol succinate 50 mg daily initiated per cardiology Continue monitoring on telemetry (4) Elevated troponin: Code(s): R77.8 - Other specified abnormalities of plasma proteins Status: Acute Assessment and Plan: Troponin leak is likely secondary to new onset atrial fibrillation. She is asymptomatic. ACS not suspected. Echo performed with no acute findings and EF is 70% Appreciate cardiology evaluation Monitor clinically for symptoms Continue telemetry (5) Burst fracture of lumbar vertebra with routine healing: Code(s): S32.001D - Stable burst fracture of unspecified lumbar vertebra, subsequent encounter for fracture with routine healing Status: Acute Assessment and Plan: Onset September 2020. She has been having significant lower back pain since that time, pretty consistently 05/17. She has been evaluated by pain management and neurosurgery at [place]. She had an MRI of the back about 1 week ago and has follow-up with pain management scheduled. She will need to continue with outpatient follow-up with pain management and neuro surgery Analgesics available as needed for pain. Monitor closely and discontinue if patient develops somnolence or confusion. Lidocaine patch and additional supportive care measures for pain (6) Type 2 diabetes mellitus with hyperglycemia, with long-term current use of insulin: Onset Date: ~1979 Code(s): E11.65 - Type 2 diabetes mellitus with hyperglycemia; Z79.4 - senior care (current) use of insu
[2020-11-25] MEDS: polyethylene glycoL 3350 17 GM POWD.PACK PO (13:40)
[2020-11-25] MEDS: HYDROcodone/acetaminophen (*CRX) 5-325 MG TABLET 1 TAB PO ×2 (14:37→22:08)
[2020-11-25] MEDS: INSULIN ASPART (*BKC) 100 UNITS/ML SUB-Q (17:22)
[2020-11-25 17:23] LABS: Glucose Point of Care 264 (65-105)
[2020-11-25] MEDS: DOCUSATE SODIUM 100 MG CAPSULE PO (22:05)
[2020-11-25] MEDS: INSULIN GLARGINE (*BKC) 100 UNITS/ML 10 UNITS SUB-Q (22:05)
[2020-11-25 22:22] LABS: Glucose Point of Care 222 (65-105)
[2020-11-26] VITALS (11 sets, daily range): BP systolic 137–151; BP diastolic 51–54; PULSE 64–80; RESP 14–16; TEMP 36.4–37.2; O2SAT 94–100
[2020-11-26 06:05] LABS: Hematocrit 38.6 % (37.0-47.0); Hemoglobin 11.4 g/dL (12.0-15.0); Mean Corpuscular HGB Conc 29.5 g/dl (32-36); Mean Corpuscular Hemoglobin 28.1 pg (26-34); Mean Corpuscular Volume 95.3 fl (80-100); Platelet Count Result 198 k/mm3 (150-375); Red Blood Count 4.05 M/mm3 (4.2-5.4); Red Cell Distribution Width 15.2 % (11.5-14.5); White Blood Count 8.1 K/mm3 (4.5-10.0)
[2020-11-26] MEDS: hydrALAZINE 10 MG TABLET PO ×3 (06:25→21:30)
[2020-11-26 06:42] LABS: Anion Gap 5 mmol/L (8-16); Blood Urea Nitrogen 24 mg/dL (7-17); Calcium 8.6 mg/dL (8.4-10.2); Carbon Dioxide 28 mmol/L (22-30); Chloride 103 mmol/L (98-107); Estimated CRCL calculation 33 ml/min; Estimated Glomerular Filt Rate 53; Glucose 114 mg/dL (65-105); Potassium 4.3 mmol/L (3.4-5.0); Sodium 136 mmol/L (137-145)
[2020-11-26 07:59] LABS: Glucose Point of Care 85 (65-105)
[2020-11-26] MEDS: LIDOCAINE 5% PATCH 1 PATCH TOPICAL (08:01)
[2020-11-26] MEDS: polyethylene glycoL 3350 17 GM POWD.PACK PO (08:01)
[2020-11-26] MEDS: METOPROLOL SUCCINATE EXT REL 50 MG TABCR PO (08:01)
[2020-11-26] MEDS: DOCUSATE SODIUM 100 MG CAPSULE PO ×2 (08:02→21:30)
[2020-11-26] MEDS: APIXABAN 5 MG TABLET PO ×2 (08:02→17:16)
[2020-11-26] MEDS: ACETAMINOPHEN 325 MG TABLET 650 MG PO ×2 (08:02→14:17)
[2020-11-26] MEDS: amLODIPine BESYLATE 5 MG TABLET 10 MG PO (08:02)
--- NOTE | 2020-11-26 08:16 | PM.PNCARD ---
Progress Note: A&P Assessment and Plan (1) Elevated troponin: Code(s): R77.8 - Other specified abnormalities of plasma proteins Status: Acute Assessment and Plan: No clinical symptoms to suggest ACS. Troponins trended up but mildly elevated. Could be due to UTI with CKD and related to type II infarct. Limited echo shows no wall motion abnormality to suggest ACS with EF 70%. (2) UTI (urinary tract infection): Qualifiers: Hematuria presence: without hematuria Urinary tract infection type: site unspecified Qualified Code(s): N39.0 - Urinary tract infection, site not specified Code(s): N39.0 - Urinary tract infection, site not specified Status: Acute Assessment and Plan: On antibiotics. Manged by hospitalist. (3) Chronic kidney disease (CKD) stage G4/A1, severely decreased glomerular filtration rate (GFR) between 15-29 mL/min/1.73 square meter and albuminuria creatinine ratio less than 30 mg/g: Code(s): N18.4 - Chronic kidney disease, stage 4 (severe) Status: Acute (4) Benign essential hypertension: Code(s): I10 - Essential (primary) hypertension Status: Chronic Assessment and Plan: Improved. (5) Aortic stenosis: Qualifiers: Cardiac valve disease etiology: etiology unspecified Qualified Code(s): I35.0 - Nonrheumatic aortic (valve) stenosis Code(s): I35.0 - Nonrheumatic aortic (valve) stenosis Status: Chronic Assessment and Plan: Stable. Limited echo shows moderate . (6) PAT (paroxysmal atrial tachycardia): Code(s): I47.1 - Supraventricular tachycardia Status: Acute Assessment and Plan: On Toprol XL 50 mg daily to suppress ectopics and PAT. Has only short runs of PAT about once a day. No atrial fibrillation. Subjective Date/time seen: 11/26/20 08:16 Patient reports weakness and chronic 8-9/10 back pain. No chest pain or sob. Exam Const: General: cooperative, healthy appearing and comfortable Resp: Auscultation: clear to auscultation bilaterally, no crackles, no rales, no rhonchi and no wheezes Cardio: Jugular venous distension: no JVD Rate: regular rate Heart sounds: Murmur heart sound present (IV/ systolic murmur RICS) Peripheral pulses: dorsalis pedis present GI: GI Palp: No abdominal tenderness and Yes Soft to palpation Neuro: General: oriented to person, oriented to place and oriented to time Extrem: Right lower extremity: no edema Left lower extremity: no edema Objective Data Vital Signs Vital Signs: Vital Signs - 24 hr 11/25/20 08:31 11/25/20 09:17 11/25/20 12:00 Temperature Pulse Rate 83 74 Respiratory Rate Blood Pressure Pulse Oximetry 98 11/25/20 13:42 11/25/20 16:00 11/25/20 20:00 Temperature 97.9 F Pulse Rate 76 77 75 Respiratory Rate 18 Blood Pressure 128/55 L Pulse Oximetry 100 11/25/20 21:44 11/26/20 00:00 11/26/20 00:38 Temperature 97.7 F 98.0 F Pulse Rate 71 72 68 Respiratory Rate 18 16 Blood Pressure 136/55 L 137/51 L Pulse Oximetry 100 99 11/26/20 04:18 11/26/20 06:00 11/26/20 08:01 Temperature 97.5 F L Pulse Rate 64 74 74 Respiratory Rate 16 Blood Pressure 139/54 L Pulse Oximetry 100 Intake/Output Intake/Output: Intake & Output 11/23/20 11/24/20 11/25/20 11/26/20 23:59 23:59 23:59 23:59 Intake Total 50 2320 2756 100 Output Total 1350 600 Balance 50 970 2156 100 Meds/Results Medications: Active Medications Generic Name Dose Route Start Last Admin Trade Name Freq PRN Reason Stop Dose Admin Acetaminophen 650 mg 11/25/20 12:52 11/26/20 08:02 Acetaminophen 325 Mg Tablet PO 650 mg Q4H PRN Administration Pain 1-5 Hydrocodone Bitart/Acetaminophen 1 tab 11/25/20 12:52 11/25/20 22:08 Hydrocodone/Acetaminophen (*Crx) 5-325 Mg Tablet PO 1 tab Q6H PRN Administration Pain Rated 6-10 Amlodipine Besylate 10 mg 11/25/20 09:00 11/26/20 08:02 Amlod
--- NOTE | 2020-11-26 11:29 | PM.IMPN ---
Progress Note: A&P Assessment and Plan (1) Altered mental status: Qualifiers: Altered mental status type: unspecified Qualified Code(s): R41.82 - Altered mental status, unspecified Code(s): R41.82 - Altered mental status, unspecified Status: Acute Assessment and Plan: She was noted to be poorly responsive upon arrival. Most likely related to metabolic encephalopathy secondary to UTI. Electrolytes stable, TSH, B12, and folate within normal limits. Head/ neck CTA and brain MRI negative for acute findings. She was treated with IV antibiotics and rehydrated with IV fluids. She is currently A&Ox4 and confusion has resolved Continue with treatment for urinary tract infection as described below She was initially made NPO due to decreased responsiveness. she had bedside swallow study and MBS which did not demonstrate evidence for aspiration. Regular diet has been resumed and she is tolerating well (2) UTI (urinary tract infection): Qualifiers: Hematuria presence: without hematuria Urinary tract infection type: site unspecified Qualified Code(s): N39.0 - Urinary tract infection, site not specified Code(s): N39.0 - Urinary tract infection, site not specified Status: Acute Assessment and Plan: Urinalysis grossly abnormal upon presentation. Her daughter reports 3 previous UTIs within the past year. She did have a Pseudomonas positive urinary tract infection in September 2020. She is afebrile and without leukocytosis. urine culture shows >100,000 CFU Klebsiella pneumoniae. Continue IV Rocephin based on susceptibility report. Plan to complete 7 days of antibiotic therapy. (3) Atrial fibrillation: Qualifiers: Atrial fibrillation type: unspecified Qualified Code(s): I48.91 - Unspecified atrial fibrillation Code(s): I48.91 - Unspecified atrial fibrillation Status: Acute Assessment and Plan: EKG upon presentation demonstrated atrial fibrillation with rapid ventricular response with heart rate in the 130s. This appears to be new onset. She is on Eliquis given history of recent pulmonary embolism. Heart rate improved following IV Cardizem bolus. Rate currently well controlled. She is established with jewel bearing maker Dr. Winters who has been consulted and his input is appreciated Continue Eliquis Continue metoprolol succinate 50 mg daily initiated per cardiology Continue monitoring on telemetry (4) Elevated troponin: Code(s): R77.8 - Other specified abnormalities of plasma proteins Status: Acute Assessment and Plan: Troponin leak is likely secondary to new onset atrial fibrillation. She is asymptomatic. ACS not suspected. Echo performed with no acute findings and EF is 70% Appreciate cardiology evaluation Monitor clinically for symptoms Continue telemetry (5) Burst fracture of lumbar vertebra with routine healing: Code(s): S32.001D - Stable burst fracture of unspecified lumbar vertebra, subsequent encounter for fracture with routine healing Status: Acute Assessment and Plan: Onset September 2020. She has been having significant lower back pain since that time, pretty consistently 05/17. She has been evaluated by pain management and neurosurgery at [place]. She had an MRI of the back about 1 week ago and has follow-up with pain management scheduled to review MRI and formulate plan to manage her pain. She did not have much pain relief with her home tramadol. [place] started yesterday and she has achieved better pain control. I spoke with her pain management provider's office today via phone. They have rescheduled an appointment with her on 11/28/20 to further assess. They have recommended upon discharge she receive only enough pain medication to last until Sunday, and then they will make adjustments at that time. [place] will be continued at this time, along with supportive care including lidoca
[2020-11-26 11:32] LABS: Glucose Point of Care 128 (65-105)
[2020-11-26 17:21] LABS: Glucose Point of Care 133 (65-105)
[2020-11-26] MEDS: INSULIN GLARGINE (*BKC) 100 UNITS/ML 10 UNITS SUB-Q (21:31)
[2020-11-26 21:35] LABS: Glucose Point of Care 166 (65-105)
[2020-11-27] VITALS (8 sets, daily range): BP systolic 163–167; BP diastolic 63–69; PULSE 67–79; RESP 12–16; TEMP 36.2–36.7; O2SAT 98–99
[2020-11-27] MEDS: hydrALAZINE 10 MG TABLET PO (05:33)
[2020-11-27 06:01] LABS: Hematocrit 34.6 % (37.0-47.0); Hemoglobin 10.9 g/dL (12.0-15.0); Mean Corpuscular HGB Conc 31.5 g/dl (32-36); Mean Corpuscular Hemoglobin 28.2 pg (26-34); Mean Corpuscular Volume 89.4 fl (80-100); Mean Platelet Volume 10.3 fl (7.4-10.4); Platelet Count Result 237 k/mm3 (150-375); Red Blood Count 3.87 M/mm3 (4.2-5.4); Red Cell Distribution Width 14.8 % (11.5-14.5); White Blood Count 7.5 K/mm3 (4.5-10.0)
[2020-11-27 06:10] LABS: Anion Gap -1 mmol/L (8-16); Blood Urea Nitrogen 19 mg/dL (7-17); Calcium 9.3 mg/dL (8.4-10.2); Carbon Dioxide 33 mmol/L (22-30); Chloride 104 mmol/L (98-107); Estimated CRCL calculation 33 ml/min; Estimated Glomerular Filt Rate 53; Glucose 94 mg/dL (65-105); Potassium 3.7 mmol/L (3.4-5.0); Sodium 136 mmol/L (137-145)
[2020-11-27 08:51] LABS: Glucose Point of Care 84 (65-105)
[2020-11-27] MEDS: amLODIPine BESYLATE 5 MG TABLET 10 MG PO (08:54)
[2020-11-27] MEDS: APIXABAN 5 MG TABLET PO (08:54)
[2020-11-27] MEDS: DOCUSATE SODIUM 100 MG CAPSULE PO (08:54)
[2020-11-27] MEDS: polyethylene glycoL 3350 17 GM POWD.PACK PO (08:55)
[2020-11-27] MEDS: HYDROcodone/acetaminophen (*CRX) 5-325 MG TABLET 1 TAB PO ×2 (08:55→15:30)
[2020-11-27] MEDS: METOPROLOL SUCCINATE EXT REL 50 MG TABCR PO (08:57)
[2020-11-27] MEDS: LIDOCAINE 5% PATCH 1 PATCH TOPICAL (09:04)
--- NOTE | 2020-11-27 09:21 | PM.PNCARD ---
Progress Note: A&P Assessment and Plan (1) Elevated troponin: Code(s): R77.8 - Other specified abnormalities of plasma proteins Status: Acute Assessment and Plan: No clinical symptoms to suggest ACS. Troponins trended up but mildly elevated. Could be due to UTI with CKD and related to type II infarct. Limited echo shows no wall motion abnormality to suggest ACS with EF 70%. (2) UTI (urinary tract infection): Qualifiers: Hematuria presence: without hematuria Urinary tract infection type: site unspecified Qualified Code(s): N39.0 - Urinary tract infection, site not specified Code(s): N39.0 - Urinary tract infection, site not specified Status: Acute Assessment and Plan: On antibiotics. Manged by hospitalist. (3) Chronic kidney disease (CKD) stage G4/A1, severely decreased glomerular filtration rate (GFR) between 15-29 mL/min/1.73 square meter and albuminuria creatinine ratio less than 30 mg/g: Code(s): N18.4 - Chronic kidney disease, stage 4 (severe) Status: Acute (4) Benign essential hypertension: Code(s): I10 - Essential (primary) hypertension Status: Chronic Assessment and Plan: High. Increase Hydralazine 25 mg TID. (5) Aortic stenosis: Qualifiers: Cardiac valve disease etiology: etiology unspecified Qualified Code(s): I35.0 - Nonrheumatic aortic (valve) stenosis Code(s): I35.0 - Nonrheumatic aortic (valve) stenosis Status: Chronic Assessment and Plan: Stable. Limited echo shows moderate . (6) PAT (paroxysmal atrial tachycardia): Code(s): I47.1 - Supraventricular tachycardia Status: Acute Assessment and Plan: On Toprol XL 50 mg daily to suppress ectopics and PAT. Has only short runs of PAT about once a day. No atrial fibrillation. Subjective Date/time seen: 11/27/20 09:21 Reports back pain. Denies chest pain or sob. Exam Const: General: cooperative, healthy appearing and comfortable Resp: Auscultation: clear to auscultation bilaterally, no crackles, no rales, no rhonchi and no wheezes Cardio: Jugular venous distension: no JVD Rate: regular rate Heart sounds: Murmur heart sound present (IV/ systolic murmur RICS) Peripheral pulses: dorsalis pedis present GI: GI Palp: No abdominal tenderness and Yes Soft to palpation Neuro: General: oriented to person, oriented to place and oriented to time Extrem: Right lower extremity: no edema Left lower extremity: no edema Objective Data Vital Signs Vital Signs: Vital Signs - 24 hr 11/26/20 12:00 11/26/20 16:00 11/26/20 19:29 Temperature 98.8 F 99 F Pulse Rate 73 76 76 Respiratory Rate 16 14 Blood Pressure 147/54 H 151/54 H Pulse Oximetry 98 98 11/26/20 20:00 11/27/20 00:16 11/27/20 04:00 Temperature Pulse Rate 71 76 67 Respiratory Rate Blood Pressure Pulse Oximetry 11/27/20 06:00 11/27/20 08:00 11/27/20 08:57 Temperature 97.2 F L Pulse Rate 77 70 Respiratory Rate 12 Blood Pressure 167/63 H Pulse Oximetry 99 98 Intake/Output Intake/Output: Intake & Output 11/24/20 11/25/20 11/26/20 11/27/20 23:59 23:59 23:59 23:59 Intake Total 2320 2756 390 220 Output Total 1350 600 Balance 970 2156 390 220 Meds/Results Medications: Active Medications Generic Name Dose Route Start Last Admin Trade Name Freq PRN Reason Stop Dose Admin Acetaminophen 650 mg 11/25/20 12:52 11/26/20 14:17 Acetaminophen 325 Mg Tablet PO 650 mg Q4H PRN Administration Pain 1-5 Hydrocodone Bitart/Acetaminophen 1 tab 11/25/20 12:52 11/27/20 08:55 Hydrocodone/Acetaminophen (*Crx) 5-325 Mg Tablet PO 1 tab Q6H PRN Administration Pain Rated 6-10 Amlodipine Besylate 10 mg 11/25/20 09:00 11/27/20 08:54 Amlodipine Besylate 5 Mg Tablet PO 10 mg DAILY [facility] Administration Apixaban 5 mg 11/24/20 17:00 11/27/20 08:54 Apixaban 5 Mg Tablet PO 5 mg BID [facility] Administr
[2020-11-27] MEDS: PRAVASTATIN SODIUM 10 MG TABLET PO (12:24)
--- NOTE | 2020-11-27 12:57 | PM.DS ---
DS: Admitting Diagnosis Admitting Diagnosis Admitting Diagnosis: altered mental status DS: Discharge Diagnosis Discharge Diagnosis (1) Altered mental status: Qualifiers: Altered mental status type: unspecified Qualified Code(s): R41.82 - Altered mental status, unspecified Code(s): R41.82 - Altered mental status, unspecified Status: Acute Assessment and Plan: Resolved. She was noted to be poorly responsive upon arrival. Most likely related to metabolic encephalopathy secondary to UTI. Electrolytes stable, TSH, B12, and folate within normal limits. Head/ neck CTA and brain MRI negative for acute findings. She was treated with IV antibiotics and rehydrated with IV fluids. She was initially made NPO due to decreased responsiveness, therefore had a bedside swallow study and MBS which did not demonstrate evidence for aspiration. Regular diet was resumed and she tolerated well. She was A&Ox4 for my encounters. (2) UTI (urinary tract infection): Qualifiers: Hematuria presence: without hematuria Urinary tract infection type: site unspecified Qualified Code(s): N39.0 - Urinary tract infection, site not specified Code(s): N39.0 - Urinary tract infection, site not specified Status: Acute Assessment and Plan: Urinalysis grossly abnormal upon presentation. She did have a Pseudomonas positive urinary tract infection in September 2020, therefore was started on IV Ceftazidime. She remained afebrile and without leukocytosis, and was asymptomatic apart from confusion. Urine culture grew >100,000 CFU Klebsiella pneumoniae, and based on susceptibilities she was transitioned to IV rocephin. She will continue PO Cefdinir to complete 7 days of antibiotic therapy. (3) PAT (paroxysmal atrial tachycardia): Code(s): I47.1 - Supraventricular tachycardia Status: Acute Assessment and Plan: Present on EKG upon presentation with rapid ventricular response with heart rate in the 130s. This appears to be new onset. Heart rate improved following IV Cardizem bolus. she was seen in consultation by violin repairer Dr. Winters and started on metoprolol succinate 50 mg daily. She was monitored on telemetry. Per Dr. Winters, this was not consistent with atrial fibrillation. She will need to follow up with cardiology as an outpatient. (4) Elevated troponin: Code(s): R77.8 - Other specified abnormalities of plasma proteins Status: Acute Assessment and Plan: Troponin leak may be secondary to paroxysmal atrial tachycardia. She was asymptomatic. ACS not suspected based on clinical findings. Echo performed with no acute findings, no wall motion abnormality, and EF is 70% (5) Burst fracture of lumbar vertebra with routine healing: Code(s): S32.001D - Stable burst fracture of unspecified lumbar vertebra, subsequent encounter for fracture with routine healing Status: Acute Assessment and Plan: Onset September 2020. She has been having significant lower back pain since that time, pretty consistently 05/17. She has been evaluated by pain management and neurosurgery at [place]. She had an MRI of the back about 1 week ago and has follow-up with pain management scheduled to review MRI and formulate plan to manage her pain. She did not have much pain relief with her home tramadol. She was transitioned to [place] which did achieve better pain control. I spoke with her pain management provider's office on 11/26 via phone. They have rescheduled an appointment with her on 11/28/20 to further assess. They have recommended upon discharge she receive only enough pain medication to last until Sunday, and then they will make adjustments at that time. She was given a short course of [place] to manage her pain until follow up. Continue supportive care including lidocaine patches and home cyclobenzaprine. Continue PT/OT. (6) Type 2 diabetes mellitus with hyperglycemia, with long-term
[2020-11-27 13:10] LABS: Glucose Point of Care 135 (65-105)
--- NOTE | 2020-11-27 14:14 | WPDNEUROPN ---
Progress Note: A&P Assessment and Plan (1) Atrial fibrillation: Qualifiers: Atrial fibrillation type: unspecified Qualified Code(s): I48.91 - Unspecified atrial fibrillation Code(s): I48.91 - Unspecified atrial fibrillation Status: Acute (2) Burst fracture of lumbar vertebra with routine healing: Code(s): S32.001D - Stable burst fracture of unspecified lumbar vertebra, subsequent encounter for fracture with routine healing Status: Acute (3) Low back pain of over 3 months duration: Code(s): M54.5 - Low back pain Status: Acute Additional Plan neurologically stable with intractable pain discussed will need the pain interventionalist, Review of Systems Review of Systems: All systems reviewed & are unremarkable except as noted in HPI and below Exam Const: General: cooperative, alert, awake and acute distress Nutritional Appearance: average body habitus Limitations: physical limitations HENMT: Head: normocephalic Ears: hearing grossly normal bilaterally Eyes: General: appearance normal, both eyes and all related structures Neck: Neck: full ROM Resp: Effort & Inspection: normal respiratory effort Auscultation: clear to auscultation bilaterally Cardio: Rate: regular rate Rhythm: abnormal rhythm GI: Auscultation: normal bowel sounds Neuro: General: patient oriented x3 Cranial nerves: Yes CN's II-XII intact bilaterally Cognition (Neuro): normal cognition Speech: normal speech Motor exam (neuro): Pronator motor function not present, No tremor noted and Normal motor muscle tone present throughout Sensory Exam: normal sensation Deep tendon reflexes (DTR's): Right triceps reflex intensity grade: 1+, Left triceps reflex intensity grade: 1+, Rt Biceps (C5, C6): 1+, Left biceps reflex intensity grade: 1+, Right brachioradialis reflex intensity grade: 1+, Left brachioradialis reflex intensity grade: 1+, Right patellar reflex intensity grade: 1+, Left patellar reflex intensity grade: 1+, Right ankle reflex intensity grade: 1+ and Left ankle reflex intensity grade: 1+ Plantar Reflex Responses: downgoing: bilateral Coordination: [id number] test normal Psych: Appearance: grossly normal Objective Data Vital Signs Vital Signs: Vital Signs - 24 hr 11/26/20 16:00 11/26/20 19:29 11/26/20 20:00 Temperature 37.1 C 37.2 C Pulse Rate 76 76 71 Respiratory Rate 16 14 Blood Pressure 147/54 H 151/54 H Pulse Oximetry 98 98 11/27/20 00:16 11/27/20 04:00 11/27/20 06:00 Temperature 36.2 C L Pulse Rate 76 67 77 Respiratory Rate 12 Blood Pressure 167/63 H Pulse Oximetry 99 11/27/20 08:00 11/27/20 08:57 11/27/20 09:54 Temperature Pulse Rate 79 70 Respiratory Rate Blood Pressure Pulse Oximetry 98 98 11/27/20 12:00 Temperature Pulse Rate 72 Respiratory Rate Blood Pressure Pulse Oximetry Intake/Output Intake/Output: Intake & Output 11/24/20 11/25/20 11/26/20 11/27/20 23:59 23:59 23:59 23:59 Intake Total 2320 2756 390 520 Output Total 1350 600 Balance 970 2156 390 520 Meds/Results Medications: Active Medications Generic Name Dose Route Start Last Admin Trade Name Freq PRN Reason Stop Dose Admin Acetaminophen 650 mg 11/25/20 12:52 11/26/20 14:17 Acetaminophen 325 Mg Tablet PO 650 mg Q4H PRN Administration Pain 1-5 Hydrocodone Bitart/Acetaminophen 1 tab 11/25/20 12:52 11/27/20 08:55 Hydrocodone/Acetaminophen (*Crx) 5-325 Mg Tablet PO 1 tab Q6H PRN Administration Pain Rated 6-10 Amlodipine Besylate 10 mg 11/25/20 09:00 11/27/20 08:54 Amlodipine Besylate 5 Mg Tablet PO 10 mg DAILY [facility] Administration Apixaban 5 mg 11/24/20 17:00 11/27/20 08:54 Apixaban 5 Mg Tablet PO 5 mg BID VA Administration Cyclobenzaprine HCl 5 mg 11/26/20 11:42 Cyclobenzaprine Hcl 5 Mg Tablet PO TID PRN Muscle Spasm Dextrose 12.5 gm 11/24/20 02:13 Dextrose 50% 25 Gm/50
[2020-11-27] MEDS: hydrALAZINE HCL 25 MG TABLET PO (15:30)
--- NOTE | 2020-11-27 16:03 | PC.NURSE ---
Report given to Carolann at [facility]. Paperwork faxed. Packet given to daughter as well.
== END 2020-11-27 16:28 | DRG 689 ==
LOC: ANHED 18:35 → ANH3MED 20:13
PROVIDERS: Family Medicine; Physician Assistant; Admitting Provider Family Medicine; Emergency Provider Emergency Medicine; PCP Family Medicine; Visit Provider Internal Medicine
DX: N39.0 Urinary tract infection, site not specified (principal); I26.99 Other pulmonary embolism without acute cor pulmonale; G93.41 Metabolic encephalopathy; I47.1 Supraventricular tachycardia; B96.1 Klebsiella pneumoniae [K. pneumoniae] as the cause of diseases classified elsewhere; E11.65 Type 2 diabetes mellitus with hyperglycemia; E11.42 Type 2 diabetes mellitus with diabetic polyneuropathy; E11.22 Type 2 diabetes mellitus with diabetic chronic kidney disease; I12.9 Hypertensive chronic kidney disease with stage 1 through stage 4 chronic kidney disease, or unspecified chronic kidney disease; N18.32 Chronic kidney disease, stage 3b; I25.10 Atherosclerotic heart disease of native coronary artery without angina pectoris; I35.0 Nonrheumatic aortic (valve) stenosis; R77.8 Other specified abnormalities of plasma proteins; E78.2 Mixed hyperlipidemia; E04.2 Nontoxic multinodular goiter; M54.5 Low back pain; R53.1 Weakness; S32.001D Stable burst fracture of unspecified lumbar vertebra, subsequent encounter for fracture with routine healing; Z79.01 Long term (current) use of anticoagulants; Z79.4 Long term (current) use of insulin; Z85.3 Personal history of malignant neoplasm of breast
CPT/HCPCS: 36415; 36600; 70496; 70498; 70553; 71045; 80048; 80053; 80307; 81001; 82607; 82746; 82805; 82948; 83735; 84443; 84484; 85025; 85027; 85610; 85730; 87040; 87077; 87086; 87088; 87186; 92526; 92610; 92611; 93005; 93308; 96361; 96365; 96375; 97110; 97161; 97165; 97530; 97535; 99285; A9270; A9577; G0378; J0131; J0696; J0713; J1815; J2310; J7030; Q9967

== ENCOUNTER 2021-03-16 13:58 | Inpatient (IN) | payer MEDICARE, SELFPAY ==
[2021-03-16] VITALS (41 sets, daily range): BP systolic 126–178; BP diastolic 47–115; PULSE 96–133; RESP 16–34; TEMP 36.5–36.6; O2SAT 84–100
--- NOTE | ~2021-03-16 | XR_ITS ---
EXAMINATION: XR chest 2V DATE: 03/16/2021 15:08 INDICATION: Weakness. Transient alteration of awareness. TECHNIQUE: Frontal and lateral views of the chest were obtained. COMPARISON: Chest single view 11/23/2020, thoracic spine CT 10/01/2020 FINDINGS: There is mild atelectasis in the mid and lower lung zones. There are small pleural effusion s. No pneumothorax. The heart size is normal. There are changes of vertebroplasty at multiple levels in thoracolumbar spine. IMPRESSION: 1. Mild atelectasis in the mid and lower lung zones. 2. Small pleural effusions. Reviewed, dictated and finalized at location A.
--- NOTE | ~2021-03-16 | MR_ITS ---
EXAMINATION: MR lumbar spine wo con DATE: 03/17/2021 15:23 INDICATION: Lower extremity weakness. TECHNIQUE: Magnetic resonance imaging (MRI) of the lumbar spine was performed without intravenous con trast. Sequences included sagittal T2-weighted FSE, sagittal T2-weighted FS FSE, sagittal T1-weighted FSE, and axial T2-weighted FSE. COMPARISON: Lumbar spine MRI 11/16/2020 FINDINGS: There is 14 degrees levoscoliosis of thoracolumbar spine. There is 5 mm retrolisthesis of L 2 on L3, 5 mm anterolisthesis of L4 on L5, and 4 mm anterolisthesis of L5 on S1. There is a compressi on fracture of T12 with changes of vertebroplasty. There is a burst fracture of L1 with retropulsion of bone 6 mm into central spinal canal, moderate central canal stenosis with ventral and dorsal inden tation of the spinal cord, and changes of vertebroplasty. There is a chronic compression fracture of L2 with changes of vertebroplasty. There is severely decreased disc height from L2-L3 through L5-S1 w ith likely interbody fusion at L2-L3. The distal spinal cord signal intensity is normal. The conus me dullaris is at L2. There is ligamentum flavum hypertrophy at the disc levels from L2-L3 through L4-L5 . There are cysts in left kidney measuring up to 4.3 cm. The following disc levels are specifically d iscussed: T12-L1: The disc does not extend beyond the endplate margin. There is severe bilateral facet joint os teoarthritis. There is moderate bilateral neural foraminal stenosis. There is mild central canal sten osis. L1-L2: The disc does not extend beyond the endplate margin. There is mild bilateral facet joint osteo arthritis. There is moderate right and mild left neural foraminal stenosis. There is no central canal stenosis. L2-L3: The disc does not extend beyond the endplate margin. There is mild bilateral facet joint osteo arthritis. There is moderate right and mild left neural foraminal stenosis. There is mild central can al stenosis. L3-L4: The disc is bulging and has an annular fissure. There is moderate bilateral facet joint osteoa rthritis. There is mild bilateral neural foraminal stenosis. There is mild central canal stenosis. L4-L5: The disc does not extend beyond the endplate margin. There is severe bilateral facet joint ost eoarthritis. There is moderate bilateral neural foraminal stenosis. There is mild central canal steno sis with stenosis of the lateral recesses. L5-S1: The disc does not extend beyond the endplate margin. There is severe bilateral facet joint ost eoarthritis. There is mild bilateral neural foraminal stenosis. There is no central canal stenosis. IMPRESSION: 1. Severe lumbar spondylosis with interval worsening of central canal stenosis at L1. Reviewed, dictated and finalized at location A.
--- NOTE | ~2021-03-16 | CT_ITS ---
EXAMINATION: CT brain wo con EXAM DATE: 03/17/2021 09:29 INDICATION: Transient alteration of awareness. Altered mental status. Hypertension, urinary tract inf ections. TECHNIQUE: Spiral CT of the head was performed without contrast. Axial, coronal and sagittal images were reviewed. The dose-length product (DLP) for this examination was 605.33 mGy-cm. The exposure w as tailored according to patient size, and iterative reconstruction (ASIR) was used as additional dos e reduction technique. Comparison is made to prior examination from 11/23/2020. FINDINGS: There is no acute intraparenchymal hemorrhage. No evidence of intraparenchymal brain mass lesion. No evidence of acute infarction. Please note that initial head CT has limited sensitivity f or small or acute infarctions. There is mild periventricular and subcortical hypodensity, nonspecific but probably related to small vessel ischemic disease. There is moderate prominence of the sulci a nd ventricles related to cerebral atrophy. There is intracranial carotid arteriosclerosis. There a re no extra-axial collections. There is no mass effect or midline shift. Patient has had bilateral ocular lens surgery. Soft tissue is unremarkable. The visualized sinuses and mastoid air cells are well aerated. IMPRESSION: 1. No acute intracranial findings. 2. Chronic age related findings. Reviewed, dictated and finalized at location A.
--- NOTE | ~2021-03-16 | US_ITS ---
EXAMINATION: US renal BI EXAM DATE: 03/18/2021 13:16 INDICATION: Acute kidney injury. TECHNIQUE: Multiple grayscale and Doppler images of the kidneys were obtained (by a technologist who performed the scan) and subsequently reviewed. There is no prior study for comparison. FINDINGS: Right kidney: There is normal contour and echogenicity. It measures 9.5 x 4.7 x 4.7 centimeters. Sev eral small cysts up to 1.3 cm. There is no hydronephrosis. Left kidney: There is normal contour and echogenicity. It measures 9.8 x 5.0 x 3.2 centimeters. Gini ral cysts up to 5 cm There is no hydronephrosis. Bladder unremarkable. IMPRESSION: Renal cysts. Reviewed, dictated and finalized at location A. IMPRESSION: Renal cysts.
--- NOTE | 2021-03-16 14:05 | ECG_ITS ---
Measurements Intervals [place] Rate: 104 P: 19 [place]: 139 QRS: -45 QRSD: 98 T: 30 QT: 371 QTc: 489 Interpretive Statements SINUS RHYTHM ATRIAL COUPLET, RUN OF ATRIAL TACHYCARDIA AND ATRIAL PREMATURE COMPLEXES LEFT AXIS DEVIATION EXTENSIVE ANTERIOR INFARCT, AGE INDETERMINATE INFERIOR INFARCT, AGE INDETERMINATE BASELINE ARTIFACT- II, III, AVF, V2-V6 ABNORMAL ECG Electronically Signed On 03-16-2021 14:10:50 CDT by Jaun Winters D.O.
--- NOTE | 2021-03-16 14:11 | PC.NURSE ---
EMS reports when patient was transferring to their cot at the facility she injured her left hand. Patient has a skin tear to left hand on arrival. Wound was cleaned and dressed by this RN
[2021-03-16 14:39] LABS: Add Urine Microscopic? YES; Appearance Urine Clear (Clear); Bacteria Urine 1+ /hpf; Bilirubin Urine Negative (Negative); Blood Urine Negative (Negative); Color Urine Yellow (Yellow); Glucose Urine UA Negative (Negative); Ketones Urine 1+ mg/dL (Negative); Leukocyte Esterase Ur 3+ LEU/UL (Negative); Mucus Urine Rare /lpf; Nitrate Urine Negative (Negative); Protein Urine 1+ mg/dL (Negative); RBC Urine 0-2 /hpf (0-2); Specific Grav Ur 1.011 (1.001-1.035); Squamous Epithelial Cell Urine Rare /hpf (Few); Urobilinogen Urine Negative mg/dL (<2.0); WBC Urine 21-30 /hpf
[2021-03-16] MEDS: SODIUM CHLORIDE 0.9% IV 500 ML 999 ML IV CONT (14:56)
--- NOTE | 2021-03-16 15:59 | ED.WEAKNESS ---
HPI - Weakness General Chief complaint: Weakness Stated complaint: HALLUCINATIONS Time Seen by Provider: 03/16/21 14:16 History of Present Illness HPI Narrative: Patient is a 86-year-old female who presents to the ER with weakness and delirium. Over the last 2 days patient has become less sharp according to the family now she is seeing things that are not actually there. While being examined patient was seeing blood drip from the ceiling. Patient has history of recurrent UTI that has caused delirium in the past. She been treated with Bactrim and cefdinir in the past. She denies urinary frequency or urgency at this time. No fevers or chills or sweats. No chest pain or chest pressure or abdominal discomfort. Cannot describe any aggravating or alleviating factors. Related Data Home Medications Medication Instructions Recorded Confirmed polyethylene glycol 3350 [Miralax] 17 g PO DAILY 08/15/20 11/23/20 torsemide 20 mg PO DAILY 08/15/20 11/23/20 insulin lispro 100 unit/mL See Rx Instructions .ROUTE .COMPLEX 09/29/20 11/23/20 subcutaneous pen omeprazole 20 mg capsule,delayed 20 mg PO DAILY cap 11/05/20 11/23/20 release cyclobenzaprine 5 mg tablet 5 mg PO TID PRN tablet 11/08/20 11/23/20 linaclotide 145 mcg capsule See Rx Instructions .ROUTE .COMPLEX 11/08/20 11/23/20 Basaglar KwikPen U-100 Insulin 12 unit SUBCUT DAILY 11/23/20 11/23/20 Eliquis 5 mg PO BID 11/23/20 11/23/20 amlodipine [Norvasc] 10 mg PO DAILY 11/23/20 11/23/20 Allergies Allergy/AdvReac Type Severity Reaction Status Date / Time ciprofloxacin Allergy Unknown Anxiety Verified 11/23/20 21:40 dexamethasone Allergy Unknown Anxiety Verified 11/23/20 21:40 hydrochlorothiazide Allergy Unknown Anxiety Verified 11/23/20 21:40 triamterene Allergy Unknown Anxiety Verified 11/23/20 21:40 Review of Systems Review of Systems: All systems reviewed & are unremarkable except as noted in HPI and below Constitutional: Constitutional: Denies chills, Denies fever(s) and Reports weakness Gastrointestinal: Gastrointestinal: Denies abdominal pain, Denies nausea and Denies vomiting Genitourinary: Genitourinary: Reports nocturia, Reports dysuria and Reports urinary incontinence Neurologic: Denies headache(s), Denies focal weakness and Denies numbness Psychiatric: Comments: Visual hallucinations PMFSH Past Medical History Medical History (Updated 03/16/21 @ 18:40 by Shailesh Tate MD) Aortic stenosis Benign essential hypertension Burst fracture of lumbar vertebra with routine healing CAD in [place] artery Heart murmur History of breast cancer Hx of Crohn's disease Lumbar pain with radiation down right leg Mixed hyperlipidemia Nonrheumatic aortic (valve) stenosis Osteoporosis Overflow incontinence Peripheral neuropathy Post menopausal problems Pulmonary embolism Type 2 diabetes mellitus with diabetic polyneuropathy Type 2 diabetes mellitus with hyperglycemia, with long-term current use of insulin (~1979) Surgical History Surgical History History of vertebroplasty (~10/07/20) L1 burst fracture - Dr Rosario at [place] Family History Family History Grandparent Diabetes mellitus Father Hypertension Cerebrovascular accident Mother Family history of arthritis Acute myocardial infarction, Onset Age: 84 Other Family history of hearing loss Family history of osteoporosis Social History Social History Smoking status: Never smoker Second hand tobacco smoke exposure: No Alcohol intake: unknown Drinks per week: 1 Substance use: unknown Substance use type: does not use Gender identity (if verbalized by the patient): Female Spiritual care concerns: No Agree to blood products: Yes Exam Narrative: Exam Narrative: GENERAL: Ill-appearing, well-nourished, and in no acute distress.
[2021-03-16 16:20] LABS: Basophils Percent Auto 0.4 % (0.2-1.2); Eosinophils Absolute Auto 0.1 K/mm3 (0-0.3); Eosinophils Percent Auto 0.9 % (0-4.4); Hematocrit 33.9 % (37.0-47.0); Hemoglobin 10.8 g/dL (12.0-15.0); Immature Granulocyte Absolute 0.04 K/mm3 (0.00-0.031); Immature Granulocyte Percent A 0.5 % (0-0.5); Lymphocytes Absolute Auto 0.68 K/mm3 (0.9-3.2); Mean Corpuscular HGB Conc 31.9 g/dl (32-36); Mean Corpuscular Hemoglobin 27.4 pg (26-34); Mean Platelet Volume 10.4 fl (7.4-10.4); Monocytes Absolute Auto 0.6 K/mm3 (0.1-0.6); Monocytes Percent Auto 7.8 % (2.6-8.5); Neutrophils Absolute Auto 6.2 K/mm3 (1.3-6.7); Neutrophils Percent Auto 81.4 % (45.5-73.1); Platelet Count Result 242 k/mm3 (150-375); Red Blood Count 3.94 M/mm3 (4.2-5.4); Red Cell Distribution Width 14.9 % (11.5-14.5); White Blood Count 7.6 K/mm3 (4.5-10.0)
[2021-03-16 16:34] LABS: Anion Gap 14 mmol/L (8-16); Blood Urea Nitrogen 33 mg/dL (7-17); Calcium 9.3 mg/dL (8.4-10.2); Carbon Dioxide 24 mmol/L (22-30); Chloride 102 mmol/L (98-107); Estimated Glomerular Filt Rate 43; Glucose 154 mg/dL (65-105); Potassium 3.2 mmol/L (3.4-5.0); Sodium 140 mmol/L (137-145)
--- NOTE | 2021-03-16 20:43 | ADMGEN ---
This patient, Sophia Webster, was admitted to Medical Room 245-. Patient/family oriented to hospital policies and general routines including ID bracelet, bed and alarms, visiting hours, pain management, procedures, bathroom and other care routines, personal items, smoking policy, room service/diet, and visiting hours. Information on how to activate the Rapid Response Team has been discussed. Patient/Family are encouraged to report perceived risks to care and to ask questions if they do not understand what they are told or what they should do.
--- NOTE | 2021-03-16 21:18 | PM.IMHP ---
H&P: HPI History of Present Illness Date/Time: 03/16/21 21:18 Chief Complaint: Altered mental status Narrative: This is an 86-year-old female with past medical history significant for paroxysmal atrial fibrillation, recurrent urinary tract infection, hypertension, osteoporosis, insulin dependent diabetes mellitus, glaucoma. Patient presented to the emergency room after family grew concerned about her altered mental status patient was having visual hallucination. At the time of my visit patient I was delirious she was unable to give any history however stated that she was hungry and wanted to eat that she has been only clear liquid diet for the last 2 days and has been having nausea and vomiting. Preliminary workup was significant for a urinalysis with high number of wbc's. Review of Systems Review of Systems: ROS unobtainable: Yes unobtainable due to medical condition (Delirium) [facility] Past Medical History Medical History (Updated 03/16/21 @ 18:40 by Shailesh Tate MD) Aortic stenosis Benign essential hypertension Burst fracture of lumbar vertebra with routine healing CAD in [place] artery Heart murmur History of breast cancer Hx of Crohn's disease Lumbar pain with radiation down right leg Mixed hyperlipidemia Nonrheumatic aortic (valve) stenosis Osteoporosis Overflow incontinence Peripheral neuropathy Post menopausal problems Pulmonary embolism Type 2 diabetes mellitus with diabetic polyneuropathy Type 2 diabetes mellitus with hyperglycemia, with long-term current use of insulin (~1979) Surgical History Surgical History History of vertebroplasty (~10/07/20) L1 burst fracture - Dr Rosario at [place] Family History Family History Grandparent Diabetes mellitus Father Hypertension Cerebrovascular accident Mother Family history of arthritis Acute myocardial infarction, Onset Age: 84 Other Family history of hearing loss Family history of osteoporosis Social History Social History Smoking status: Never smoker Second hand tobacco smoke exposure: No Alcohol intake: unknown Drinks per week: 1 Substance use: never Substance use type: does not use Gender identity (if verbalized by the patient): Female Spiritual care concerns: No Agree to blood products: Yes Meds Home Medications and Allergies Home Medications Medication Instructions Recorded Confirmed Type pravastatin 10 mg tablet 10 mg PO QPM #90 tablet 03/25/20 03/16/21 Rx ondansetron 4 mg PO Q6H PRN #10 tablet 08/15/20 03/16/21 Rx polyethylene glycol 3350 [Miralax] 17 g PO DAILY PRN 08/15/20 03/16/21 History torsemide 20 mg PO DAILY 08/15/20 03/16/21 History insulin lispro 100 unit/mL See Rx Instructions .ROUTE .COMPLEX 09/29/20 03/16/21 History subcutaneous pen omeprazole 20 mg capsule,delayed 20 mg PO DAILY cap 11/05/20 03/16/21 History release cyclobenzaprine 5 mg tablet 5 mg PO TID PRN tablet 11/08/20 03/16/21 History Basaglar KwikPen U-100 Insulin 7 unit SUBCUT DAILY 11/23/20 03/16/21 History Eliquis 5 mg PO BID 11/23/20 03/16/21 History amlodipine [Norvasc] 10 mg PO DAILY 11/23/20 03/16/21 History hydralazine 25 mg PO Q8HR #60 tablet 11/27/20 03/16/21 Rx acetaminophen 1,000 mg PO Q6H PRN 03/16/21 03/16/21 History acidophilus-pectin, citrus 2 cap PO DAILY 03/16/21 03/16/21 History [Acidophilus Probiotic] buprenorphine 1 patch TRANSDERMAL Q7D 03/16/21 03/16/21 History dicyclomine [Bentyl] 20 mg PO QID 03/16/21 03/16/21 History diphenhydramine HCl [Banophen] 25 mg PO BID PRN 03/16/21 03/16/21 History docusate sodium 100 mg PO Q12HR PRN 03/16/21 03/16/21 History glucagon 1 mg SUBCUT Q30M PRN 03/16/21 03/16/21 History ibuprofen 400 mg PO TID PRN 03/16/21 03/16/21 History latanoprost 1 drp EACH EYE DAILY 03/16/21 03/16/21 History lisinopril 20 mg PO BID 03/16/21 06
[2021-03-16 21:47] LABS: Glucose Point of Care 120 mg/dl (65-105)
[2021-03-17] VITALS (12 sets, daily range): BP systolic 105–164; BP diastolic 46–72; PULSE 55–120; RESP 16–22; TEMP 36.4–37.1; O2SAT 98–100
[2021-03-17 08:35] LABS: Glucose Point of Care 142 mg/dl (65-105)
--- NOTE | 2021-03-17 09:25 | ECG_ITS ---
Measurements Intervals [place] Rate: 123 P: [place]: 0 QRS: -48 QRSD: 89 T: 60 QT: 301 QTc: 432 Interpretive Statements SINUS RHYTHM VENTRICULAR PREMATURE COMPLEX, SHORT RUN OF ATRIAL TACHYCARDIA AND FREQUENT ATRIAL PREMATURE COMPLEXES ANTERIOR INFARCT, AGE INDETERMINATE INFERIOR INFARCT, AGE INDETERMINATE BORDERLINE ST-T WAVE ABNORMALITY- HIGH LATERAL LEADS BASELINE ARTIFACT- V4 ABNORMAL ECG Electronically Signed On 03-17-2021 10:53:35 CDT by Jaun Winters D.O.
[2021-03-17] MEDS: DICYCLOMINE HCL 10 MG CAPSULE 20 MG PO ×4 (09:56→21:50)
[2021-03-17] MEDS: SERTRALINE HCL 25 MG TABLET 75 MG PO (09:57)
[2021-03-17] MEDS: PANTOPRAZOLE 40 MG TABLET PO (09:57)
[2021-03-17] MEDS: hydrALAZINE HCL 25 MG TABLET PO ×2 (09:57→18:08)
[2021-03-17] MEDS: ACIDOPHILUS/BULGARICUS CHEWABLE TABLET 2 TABLET PO (09:57)
[2021-03-17] MEDS: APIXABAN 5 MG TABLET PO ×2 (09:57→18:08)
[2021-03-17] MEDS: amLODIPine BESYLATE 5 MG TABLET 10 MG PO (09:57)
[2021-03-17] MEDS: lisinopriL 20 MG TABLET PO ×2 (09:58→18:09)
[2021-03-17] MEDS: INSULIN GLARGINE (*BKC) 100 UNITS/ML 7 UNITS SUB-Q (09:59)
--- NOTE | 2021-03-17 11:00 | PM.IMPN ---
Progress Note: A&P Assessment and Plan (1) Acute UTI: Code(s): N39.0 - Urinary tract infection, site not specified Status: Acute Assessment and Plan: UA consistent with a UTI which could be causing her delirium -Continue ceftriaxone -pt has a hx of many organisms in the past. Await indentification and adjust treatment as needed -Triage note states she was treated for a UTI recently and I have asked for those records. -Infection likely the cause of the tachycardia -May benefit from a urologist outpt or Prophylactic abx as she has a hx of multiple UTIs (2) Altered mental status: Qualifiers: Altered mental status type: unspecified Qualified Code(s): R41.82 - Altered mental status, unspecified Code(s): R41.82 - Altered mental status, unspecified Status: Acute Assessment and Plan: Likely secondary to urinary tract infection -ddx is her pain medication buprenorphine patch. This was just increased last week which could be causing her symptoms -CT of the brain negative -Will draw further labs such as liver fx, tsh, and crp (3) PAT (paroxysmal atrial tachycardia): Code(s): I47.1 - Supraventricular tachycardia Status: Acute Assessment and Plan: She has a hx of this and denies afib -EKG showing tachycardia up to 140. Could be due to infx -Spoke with Dr. Winters, will give 5mg lopresser and monitor on tele -EKG without significant worrisome ST changes but i'll get a BNP and an echo since she looks overloaded -continue eliquis -Dr. Winters consulted (4) Chronic kidney disease (CKD) stage G4/A1, severely decreased glomerular filtration rate (GFR) between 15-29 mL/min/1.73 square meter and albuminuria creatinine ratio less than 30 mg/g: Code(s): N18.4 - Chronic kidney disease, stage 4 (severe) Status: Acute Assessment and Plan: Mildly worse than baseline -could be due to UTI -will monitor (5) CAD in [place] artery: Code(s): I25.10 - Atherosclerotic heart disease of [place] coronary artery without angina pectoris Status: Acute Assessment and Plan: Stable -no current CP but pt told to call out if she had any (6) Benign essential hypertension: Code(s): I10 - Essential (primary) hypertension Status: Chronic Assessment and Plan: last bp 150/70 -continue lisinopril, amlodipine, and hydralazine -one dose of metoprolol ordered for tachycardia. (7) Aortic stenosis: Qualifiers: Cardiac valve disease etiology: etiology unspecified Qualified Code(s): I35.0 - Nonrheumatic aortic (valve) stenosis Code(s): I35.0 - Nonrheumatic aortic (valve) stenosis Status: Chronic Assessment and Plan: Will obtain echo (8) Type 2 diabetes mellitus with hyperglycemia, with long-term current use of insulin: Onset Date: ~1979 Code(s): E11.65 - Type 2 diabetes mellitus with hyperglycemia; Z79.4 - exterminator (current) use of insulin Status: Chronic Assessment and Plan: Last glucose 142 -Continue Accu-Cheks AC and HS -Continue SSI and lantus (9) Multinodular goiter: Code(s): E04.2 - Nontoxic multinodular goiter Status: Acute Assessment and Plan: Continue to monitor -add TSH (10) Lower extremity weakness: Code(s): R29.898 - Other symptoms and signs involving the musculoskeletal system Status: Acute Assessment and Plan: As above -Concerning with hx of back fx but this does not seem to be new for her. She denies any new falls -will obtain lumbar MRI -Neuro consulted -Will order PT/OT Time Spent With Patient Time with patient: 25 - 35 minutes Subjective Date/time seen: 03/17/21 11:00 Interval history: Pt is a 86 y/o female here for UTI, weakness, and hallucinations. Patient was seen today and was lethargic for the nursing staff but was fully awake for me. She states she has chronic back pain and th
[2021-03-17 11:26] LABS: Alanine Aminotransferase 12 U/L (4-35); Albumin Level 2.9 g/dL (3.5-5.1); Alkaline Phosphatase 65 U/L (38-126); Aspartate Amino Transferase 26 U/L (14-36); Bilirubin,Total 0.3 mg/dL (0.2-1.3); Magnesium 1.6 mg/dL (1.6-2.3)
[2021-03-17 11:33] LABS: CRP 1.1 mg/dL (<1.0)
[2021-03-17] MEDS: METOPROLOL TARTRATE INJ 5 MG/5 ML VIAL IV PUSH (11:33)
[2021-03-17 11:41] LABS: NT Pro B Type Natriuretic Pept 10200 pg/mL (5-100); Troponin I 0.298 ng/mL (0.000-0.034)
--- NOTE | 2021-03-17 12:41 | PM.CNCAR ---
Assessment and Plan Assessment and plan (1) Acute UTI: Code(s): N39.0 - Urinary tract infection, site not specified Status: Acute Assessment and Plan: On antibiotics as per hospitalist. (2) PAT (paroxysmal atrial tachycardia): Code(s): I47.1 - Supraventricular tachycardia Status: Acute Assessment and Plan: Start Metoprolol Tartate 50 mg PO BID to suppress PAC's and decrease burden of PAT. Correct electrolytes. Start Mag Ox 400 mg daily. (3) Elevated troponin: Code(s): R77.8 - Other specified abnormalities of plasma proteins Status: Acute Assessment and Plan: Doubt ACS as no symptomatology to suggest it. This could be due to UTI, CKD, hypertension and aortic stenosis and diastolic dysfunction. Obtain echo. (4) Bilateral lower extremity edema: Code(s): R60.0 - Localized edema Status: Acute Assessment and Plan: Could be contributed from side effect of Amlodipine. Would decrease Amlodipine 5 mg daily and increase Hydralazine dose as needed. Due to edema of legs and small pleural effusions, resume Torsemide 20 mg daily. (5) Aortic stenosis: Qualifiers: Cardiac valve disease etiology: etiology unspecified Qualified Code(s): I35.0 - Nonrheumatic aortic (valve) stenosis Code(s): I35.0 - Nonrheumatic aortic (valve) stenosis Status: Chronic (6) Benign essential hypertension: Code(s): I10 - Essential (primary) hypertension Status: Chronic Assessment and Plan: High. Start Metoprolol tartate 50 mg BID. (7) CAD in [place] artery: Code(s): I25.10 - Atherosclerotic heart disease of [place] coronary artery without angina pectoris Status: Acute History of Present Illness History of Present Illness Consult date/time: 03/17/21 12:41 Reason for consult: Atrial arrhythmia. 86 yr old woman who is my regular cardiology patient who presented to ED for mental status changes and visual hallucinations. She has a history of CAD (had cardiac cath in 2013 at [place], [place] and had non-obstructive plaques per patient), , hypertension, DM, CK stage IV, dyslipidemia, pulm embolism on Eliquis. Her daughter is at bedside and another joined via phone. Her daughter reports she noticed patient was confused and had hallucinations. She does have swelling of feet. No sob or concerning chest pains. Thus far it is found she has UTI. CXR shows small pleural effusions. Troponin was elevated at 0.298. Mag 1.6, Potassium 3.2. Hb 10.8. EKG: sinus rhythm with short run of atrial tachycardia. Telemetry shows short runs of atrial tachycardia and PAC's. CARDIOVASCULAR PROCEDURES ECHO/MUGA: 11/05/20 Echo: EF 70%, mod LVH, grade I diastolic dysfunction, mod (OSVALDO 1.4 cm2) but it appears more severe; consider MONET if clinically indicated. 12/08/19 Echo: EF 65-70%, mod LVH, grade I diastolic dysfunction, mild LAE, mod (OSVALDO 1.1 cm2), RVSP 54 mmHg, trace PI. Echo (EF 65-70%, mod LVH, grade I diastolic dysfunction (E/E' 16), mod MAC, mod valve area 1.1 cm2, trace TR.) - 01/02/2019 ELECTROPHYSIOLOGY: 08/27/20 EKG: Sinus rhythm changes to atrial tachycardia, PAC's and PVC's, inferior and anteroseptal infarct, borderline ST-T wave in high lateral leads. EKG (Sinus bradycardia at 51 bpm, cannot r/o septal infarct, age indeterminate.) - 01/16/2019 Stress test: 07/08/20 Lexiscan myoview: Negative for ischemia; small mild inferolateral infarct. EF 60% Reason For Visit: uti/delirium Review of Systems Review of Systems: All systems reviewed & are unremarkable except as noted in HPI and below Constitutional: Constitutional: Reports as per HPI, Denies chills and Denies fever(s) Cardiovascular: Cardiovascular: Reports as per HPI, Denies chest pain, Reports leg edema, Denies lightheadedness and Reports dyspnea on exertion Respiratory: Respiratory: Reports as per HPI and Reports dyspnea on exertion Gastrointestinal: Gastrointestinal: Reports as per HPI and Den
[2021-03-17] MEDS: ACETAMINOPHEN 500 MG TABLET 1000 MG PO (13:52)
[2021-03-17] MEDS: MAGNESIUM OXIDE 400 MG TABLET PO (13:53)
[2021-03-17] MEDS: POTASSIUM CHLORIDE 20 MEQ PACKET (FOR LIQUID) 40 MEQ PO (13:53)
[2021-03-17 13:56] LABS: Glucose Point of Care 157 mg/dl (65-105)
[2021-03-17 14:23] LABS: Troponin I 0.316 ng/mL (0.000-0.034)
--- NOTE | 2021-03-17 14:45 | PC.NURSE ---
Patient to MRI per stretcher. Medication patch, Buprenorphine, removed for MRI per hospitalist orders/MRI policy. Patch wasted with hemodialysis charge nurse, Mehnaz Nicholas. Daughter to [place] to milk pickup driver new narcotic patch.
--- NOTE | 2021-03-17 14:59 | PCPTNOTE ---
Attempted PT eval. Pt gone to MRI. Will try again tomorrow.
--- NOTE | 2021-03-17 16:16 | PHAR ---
Home med verified: Buprenorphine 15mcg/hr patch #1
[2021-03-17 17:10] LABS: Troponin I 0.301 ng/mL (0.000-0.034)
[2021-03-17 17:41] LABS: Glucose Point of Care 178 mg/dl (65-105)
[2021-03-17] MEDS: LATANOPROST 0.005% OP SOLN 2.5 ML BTL 1 DROP EACH EYE (21:56)
[2021-03-17] MEDS: METOPROLOL TARTRATE 50 MG TAB PO (21:58)
[2021-03-17 22:07] LABS: Glucose Point of Care 165 mg/dl (65-105)
[2021-03-18] VITALS (13 sets, daily range): BP systolic 118–138; BP diastolic 48–53; PULSE 54–65; RESP 16; TEMP 36.4–36.9; O2SAT 97–100
--- NOTE | 2021-03-18 | ECHO_ITS ---
Patient Info Name: Sophia Webster Age: 86 years : 1935 Gender: Female Ht: 64 in Wt: 154 lbs BSA: 1.79 m2 HR: 61 bpm BP: 122 / 46 mmHg Technical Quality: Good Exam Date: 03/18/2021 3:10 PM Exam Location: [facility] Patient Status: Inpatient Admit Date: 03/17/2021 Staff Ordering Physician: Yari Greene PA-C Stucco Laborer: Sandeep Jesus RDCS, RT Attending Provider: Yari Greene PA-C Referring Physician: Jc SANTOS; Exam Type: CA echo doppler color flow Study Info Indications I48.1 - Persistent atrial fibrillation Complete two-dimensional, color flow and Doppler transthoracic echocardiogram is performed. Strain analysis performed. Summary 1. Complete two-dimensional, color flow and Doppler transthoracic echocardiogram is performed. 2. Left ventricular chamber dimension is normal. 3. Left ventricular systolic function is normal, estimated at 65-70%. 4. There is moderately increased left ventricular wall thickness. 5. The left ventricular diastolic function is grade I diastolic dysfunction. 6. E/e' 17 is elevated. 7. Global longitudinal strain is abnormal at -14.8%. 8. Left atrial chamber dimension is mildly enlarged. 9. There is severe aortic valve sclerosis. 10. There is moderate aortic valve stenosis with a peak velocity of 305 cm/s, mean gradient of 18 mmHg, and aortic valve area of 1.2 cm2. 11. The mitral valve has moderately calcified annulus. 12. There is mild mitral valve regurgitation. 13. There is mild tricuspid valve regurgitation. 14. Moderate pulmonary hypertension, estimated pulmonary arterial systolic pressure is 51 mmHg. 15. Dilated inferior vena cava with >50% collapse upon inspiration consistent with elevated right atrial pressure, 10 mmHg. Left Ventricle E/e' 17 is elevated. Global longitudinal strain is abnormal at -14.8%. Left ventricular chamber dimension is normal. Left ventricular systolic function is normal, estimated at 65-70%. There is moderately increased left ventricular wall thickness. The left ventricular diastolic function is grade I diastolic dysfunction. Right Ventricle Right ventricular systolic function is normal and with normal TAPSE 1.8 cm. Right ventricular chamber dimension is normal. Left Atria Left atrial chamber dimension is mildly enlarged. Right Atria Right atrial chamber dimension is normal. Aortic Valve The aortic valve is trileaflet. There is severe aortic valve sclerosis. There is moderate aortic valve stenosis with a peak velocity of 305 cm/s, mean gradient of 18 mmHg, and aortic valve area of 1.2 cm2. There is no aortic valve regurgitation. Pulmonic Valve There is no pulmonic regurgitation. Mitral Valve The mitral valve has moderately calcified annulus. There is no mitral valve stenosis. There is mild mitral valve regurgitation. Tricuspid Valve There is mild tricuspid valve regurgitation. Moderate pulmonary hypertension, estimated pulmonary arterial systolic pressure is 51 mmHg. Pericardium/Pleural There is no pericardial effusion. Inferior Vena Cava Dilated inferior vena cava with >50% collapse upon inspiration consistent with elevated right atrial pressure, 10 mmHg. Aorta The aortic root size at the sinus of Valsalva is normal. Left Ventricular Outflow Tract Name Value Normal
[2021-03-18 05:40] LABS: Basophils Absolute Auto 0.1 K/mm3 (0.0-0.1); Basophils Percent Auto 0.7 % (0.2-1.2); Eosinophils Absolute Auto 0.4 K/mm3 (0-0.3); Eosinophils Percent Auto 4.8 % (0-4.4); Hematocrit 27.9 % (37.0-47.0); Hemoglobin 8.9 g/dL (12.0-15.0); Immature Granulocyte Absolute 0.04 K/mm3 (0.00-0.031); Immature Granulocyte Percent A 0.6 % (0-0.5); Lymphocytes Absolute Auto 0.92 K/mm3 (0.9-3.2); Lymphocytes Percent Auto 12.7 % (18.3-44.2); Mean Corpuscular HGB Conc 31.9 g/dl (32-36); Mean Corpuscular Hemoglobin 27.6 pg (26-34); Mean Corpuscular Volume 86.4 fl (80-100); Mean Platelet Volume 10.7 fl (7.4-10.4); Monocytes Absolute Auto 0.8 K/mm3 (0.1-0.6); Monocytes Percent Auto 10.6 % (2.6-8.5); Neutrophils Absolute Auto 5.1 K/mm3 (1.3-6.7); Neutrophils Percent Auto 70.6 % (45.5-73.1); Platelet Count Result 211 k/mm3 (150-375); Red Blood Count 3.23 M/mm3 (4.2-5.4); Red Cell Distribution Width 15.2 % (11.5-14.5); White Blood Count 7.3 K/mm3 (4.5-10.0)
[2021-03-18 05:59] LABS: Alanine Aminotransferase 18 U/L (4-35); Albumin Level 2.9 g/dL (3.5-5.1); Alkaline Phosphatase 63 U/L (38-126); Anion Gap 5 mmol/L (8-16); Aspartate Amino Transferase 32 U/L (14-36); Bilirubin,Total 0.2 mg/dL (0.2-1.3); Blood Urea Nitrogen 38 mg/dL (7-17); CRP 0.9 mg/dL (<1.0); Calcium 8.7 mg/dL (8.4-10.2); Carbon Dioxide 28 mmol/L (22-30); Chloride 104 mmol/L (98-107); Estimated CRCL calculation 20 ml/min; Estimated Glomerular Filt Rate 31; Glucose 132 mg/dL (65-105); Potassium 3.5 mmol/L (3.4-5.0); Sodium 137 mmol/L (137-145)
--- NOTE | 2021-03-18 08:10 | PM.PNCARD ---
Progress Note: A&P Assessment and Plan (1) Acute UTI: Code(s): N39.0 - Urinary tract infection, site not specified Status: Acute Assessment and Plan: On antibiotics as per hospitalist. (2) PAT (paroxysmal atrial tachycardia): Code(s): I47.1 - Supraventricular tachycardia Status: Acute Assessment and Plan: Started Metoprolol Tartate 50 mg PO BID to suppress PAC's and decrease burden of PAT. Will monitor HR and BP today on it. Correct electrolytes. On Mag Ox 400 mg daily. (3) Elevated troponin: Code(s): R77.8 - Other specified abnormalities of plasma proteins Status: Acute Assessment and Plan: Doubt ACS as no symptomatology to suggest it. This could be due to UTI, CKD, hypertension and aortic stenosis and diastolic dysfunction. Obtain echo. (4) Bilateral lower extremity edema: Code(s): R60.0 - Localized edema Status: Acute Assessment and Plan: Could be contributed from side effect of Amlodipine. Decreased Amlodipine 5 mg daily and increase Hydralazine dose as needed. Due to edema of legs and small pleural effusions, resumed Torsemide 20 mg daily. (5) Aortic stenosis: Qualifiers: Cardiac valve disease etiology: etiology unspecified Qualified Code(s): I35.0 - Nonrheumatic aortic (valve) stenosis Code(s): I35.0 - Nonrheumatic aortic (valve) stenosis Status: Chronic (6) Benign essential hypertension: Code(s): I10 - Essential (primary) hypertension Status: Chronic Assessment and Plan: High. Start Metoprolol tartate 50 mg BID. (7) CAD in [place] artery: Code(s): I25.10 - Atherosclerotic heart disease of [place] coronary artery without angina pectoris Status: Acute Subjective Date/time seen: 03/18/21 08:10 She has chronic back pain. No chest pain or sob. Telemetry shows no PAT overnight but her HR got to upper 40's bpm range. Exam Const: General: cooperative, healthy appearing and comfortable Resp: Auscultation: clear to auscultation bilaterally, no crackles, no rales, no rhonchi and no wheezes Cardio: Jugular venous distension: no JVD Rate: regular rate Rhythm: regular rhythm Heart sounds: Murmur heart sound present (III/ systolic murmur RICS) Peripheral pulses: dorsalis pedis present GI: GI Palp: No abdominal tenderness and Yes Soft to palpation Neuro: General: oriented to person, oriented to place and oriented to time Extrem: Right lower extremity: edema Left lower extremity: edema Other: Mild pedal edema bilaterally Objective Data Vital Signs Vital Signs: Vital Signs - 24 hr 03/17/21 09:21 03/17/21 11:33 03/17/21 12:00 Temperature 98.8 F Pulse Rate 120 H 110 H 84 Respiratory Rate 22 H Blood Pressure 150/70 H Pulse Oximetry 100 03/17/21 12:34 03/17/21 14:00 03/17/21 16:00 Temperature 97.9 F Pulse Rate 71 55 L 85 Respiratory Rate 16 Blood Pressure 105/64 126/51 L Pulse Oximetry 100 100 03/17/21 20:00 03/17/21 20:38 03/17/21 21:54 Temperature 97.5 F L Pulse Rate 69 69 72 Respiratory Rate 18 Blood Pressure 115/49 L 122/46 L Pulse Oximetry 100 03/17/21 21:58 03/18/21 00:00 03/18/21 04:00 Temperature Pulse Rate 72 59 L 56 L Respiratory Rate Blood Pressure Pulse Oximetry 03/18/21 06:00 Temperature 97.8 F Pulse Rate 58 L Respiratory Rate 16 Blood Pressure 120/48 L Pulse Oximetry 100 Intake/Output Intake/Output: Intake & Output 03/15/21 03/16/21 03/17/21 03/18/21 23:59 23:59 23:59 23:59 Intake Total 550 710 250 Balance 550 710 250 Meds/Results Medications: Active Medications Generic Name Dose Route Start Last Admin Trade Name Freq PRN Reason Stop Dose Admin Acetaminophen 1,000 mg 03/17/21 02:02 03/17/21 13:52 Acetaminophen 500 Mg Tablet PO 1,000 mg Q6H PRN Administration Pain (Scale Score 1-3) Hydrocodone Bitart/Acetaminophen 1 tab 03/16/21 18:02 Hydrocodone/Acetaminoph
[2021-03-18] MEDS: ACETAMINOPHEN 500 MG TABLET 1000 MG PO (08:59)
[2021-03-18] MEDS: amLODIPine BESYLATE 5 MG TABLET PO (09:09)
[2021-03-18] MEDS: hydrALAZINE HCL 25 MG TABLET PO ×3 (09:09→16:47)
[2021-03-18] MEDS: TORSEMIDE 20 MG TABLET PO (09:10)
[2021-03-18] MEDS: DICYCLOMINE HCL 10 MG CAPSULE 20 MG PO ×4 (09:10→20:43)
[2021-03-18] MEDS: SERTRALINE HCL 25 MG TABLET 75 MG PO (09:10)
[2021-03-18] MEDS: APIXABAN 5 MG TABLET PO ×2 (09:10→16:48)
[2021-03-18] MEDS: METOPROLOL TARTRATE 50 MG TAB PO ×2 (09:10→20:46)
[2021-03-18] MEDS: ACIDOPHILUS/BULGARICUS CHEWABLE TABLET 2 TABLET PO (09:10)
[2021-03-18] MEDS: MAGNESIUM OXIDE 400 MG TABLET PO (09:11)
[2021-03-18] MEDS: lisinopriL 20 MG TABLET PO ×2 (09:11→16:48)
[2021-03-18] MEDS: PANTOPRAZOLE 40 MG TABLET PO (09:11)
[2021-03-18 09:16] LABS: Glucose Point of Care 117 mg/dl (65-105)
--- NOTE | 2021-03-18 10:14 | PM.IMPN ---
Progress Note: A&P Assessment and Plan (1) Acute UTI: Code(s): N39.0 - Urinary tract infection, site not specified Status: Acute Assessment and Plan: UA consistent with a UTI which could be causing her delirium since it is improving with treatment -I called the lab who is running sensitivities but it is growing >100,000 entercoccus. Will switch to ampicillin. -pt has a hx of many organisms in the past. Await indentification and adjust treatment as needed -Triage note states she was treated for a UTI recently and I have asked for those records. -Infection likely the cause of the tachycardia -May benefit from a urologist outpt or Prophylactic abx as she has a hx of multiple UTIs (2) Altered mental status: Qualifiers: Altered mental status type: unspecified Qualified Code(s): R41.82 - Altered mental status, unspecified Code(s): R41.82 - Altered mental status, unspecified Status: Acute Assessment and Plan: Likely secondary to urinary tract infection -ddx is her pain medication buprenorphine patch. This was just increased last week which could be causing her symptoms but seems less likely since this is improved. -CT of the brain negative (3) PAT (paroxysmal atrial tachycardia): Code(s): I47.1 - Supraventricular tachycardia Status: Acute Assessment and Plan: Resolved She has a hx of this and denies afib -HR now NSR rate 65 -Pt now on metoprolol 50 BID. Consider decreasing dose if pt has persistent bradycardia. -EKG without significant worrisome ST changes but trop was elevated. Await echo -continue eliquis -Dr. Winters consulted (4) Chronic kidney disease (CKD) stage G4/A1, severely decreased glomerular filtration rate (GFR) between 15-29 mL/min/1.73 square meter and albuminuria creatinine ratio less than 30 mg/g: Code(s): N18.4 - Chronic kidney disease, stage 4 (severe) Status: Acute Assessment and Plan: Up again today, unclear why -will order renal u/s to assess for peylo or any other pathology. (5) CAD in [place] artery: Code(s): I25.10 - Atherosclerotic heart disease of [place] coronary artery without angina pectoris Status: Acute Assessment and Plan: Stable -no current CP but pt told to call out if she had any (6) Benign essential hypertension: Code(s): I10 - Essential (primary) hypertension Status: Chronic Assessment and Plan: last bp 120/48 -continue lisinopril, amlodipine, hydralazine and now metoprolol (7) Aortic stenosis: Qualifiers: Cardiac valve disease etiology: etiology unspecified Qualified Code(s): I35.0 - Nonrheumatic aortic (valve) stenosis Code(s): I35.0 - Nonrheumatic aortic (valve) stenosis Status: Chronic Assessment and Plan: await echo (8) Type 2 diabetes mellitus with hyperglycemia, with long-term current use of insulin: Onset Date: ~1979 Code(s): E11.65 - Type 2 diabetes mellitus with hyperglycemia; Z79.4 - watermelon inspector (current) use of insulin Status: Chronic Assessment and Plan: Last glucose 117 -continue lantus 5u at night as well as SSI -Continue Accu-Cheks AC and HS (9) Multinodular goiter: Code(s): E04.2 - Nontoxic multinodular goiter Status: Acute Assessment and Plan: Continue to monitor -TSH WNL (10) Lower extremity weakness: Code(s): R29.898 - Other symptoms and signs involving the musculoskeletal system Status: Acute Assessment and Plan: As above -MRI of the lumbar spine does not show cord compression but does show mild cental canal stenosis. -Neuro consulted -Continue PT/OT Subjective Date/time seen: 03/18/21 10:14 Interval history: Pt is a 86 y/o female here for UTI, weakness, and hallucinations. Patient was seen today and states she is not having any further delusions and she is thankful for that. She also feels st
[2021-03-18] MEDS: AMPICILLIN 1 GM/NS 50 ML 1 GM/50 ML BAG IVPB ×3 (11:51→23:57)
[2021-03-18 11:54] LABS: Glucose Point of Care 224 mg/dl (65-105)
[2021-03-18] MEDS: INSULIN ASPART (*BKC) 100 UNITS/ML SUB-Q (11:57)
--- NOTE | 2021-03-18 13:01 | WPDNEURCNPN ---
Assessment and Plan Additional Plan encephalopathy with documented UTI and paroxysmal atrial tachycardia but no significant neurological deficit treatment will be continued as such Consult date: 03/18/21 Time Seen: 12:30 HPI: Sopiha Webster is a 86 year old femaleAdmitted to the hospital for the complaints of change in the mental status in addition to the ongoing history of 1. Paroxysmal atrial fibrillation 2. Hypertension 3. Insulin-dependent diabetes mellitus 4. UTI 5. Osteoporosis at the time of change in mental status patient was having visual hallucination as well. Her past history is consistent with multiple medical problems in addition to what mentioned above. Evaluation documented negative CT scan of the head without evidence of bleed but in addition lumbar spine CT scan was done which is documented lumbar spondylosis with worsening of the spinal stenosis. Cardiology consultation has also been obtained because the paroxysmal atrial tachycardia with supra ventricular tachycardia for which metoprolol 50 mg twice a day has been started in addition to the correction of the electrolytes patient was noted to have elevated troponin the edema of the lower extremities was attributed to the amlodipine and the dosage has been adjusted patient has also been found to have non rheumatic aortic valve stenosis Review of Systems Review of Systems: All systems reviewed & are unremarkable except as noted in HPI and below PMFSH Past Medical History Medical History Aortic stenosis Benign essential hypertension Burst fracture of lumbar vertebra with routine healing CAD in [place] artery Heart murmur History of breast cancer Hx of Crohn's disease Lumbar pain with radiation down right leg Mixed hyperlipidemia Nonrheumatic aortic (valve) stenosis Osteoporosis Overflow incontinence Peripheral neuropathy Post menopausal problems Pulmonary embolism Type 2 diabetes mellitus with diabetic polyneuropathy Type 2 diabetes mellitus with hyperglycemia, with long-term current use of insulin (~1979) Surgical History Surgical History History of vertebroplasty (~10/07/20) L1 burst fracture - Dr Rosario at [place] Family History Family History Grandparent Diabetes mellitus Father Hypertension Cerebrovascular accident Mother Family history of arthritis Acute myocardial infarction, Onset Age: 84 Other Family history of hearing loss Family history of osteoporosis Social History Social History Smoking status: Never smoker Second hand tobacco smoke exposure: No Alcohol intake: unknown Drinks per week: 1 Substance use: never Substance use type: does not use Gender identity (if verbalized by the patient): Female Spiritual care concerns: No Agree to blood products: Yes Meds Home Medications and Allergies Home Medications Medication Instructions Recorded Confirmed Type pravastatin 10 mg tablet 10 mg PO QPM #90 tablet 03/25/20 03/16/21 Rx ondansetron 4 mg PO Q6H PRN #10 tablet 08/15/20 03/16/21 Rx polyethylene glycol 3350 [Miralax] 17 g PO DAILY PRN 08/15/20 03/16/21 History torsemide 20 mg PO DAILY 08/15/20 03/16/21 History insulin lispro 100 unit/mL See Rx Instructions .ROUTE .COMPLEX 09/29/20 03/16/21 History subcutaneous pen omeprazole 20 mg capsule,delayed 20 mg PO DAILY cap 11/05/20 03/16/21 History release cyclobenzaprine 5 mg tablet 5 mg PO TID PRN tablet 11/08/20 03/16/21 History Basaglar KwikPen U-100 Insulin 7 unit SUBCUT DAILY 11/23/20 03/16/21 History Eliquis 5 mg PO BID 11/23/20 03/16/21 History amlodipine [Norvasc] 10 mg PO DAILY 11/23/20 03/16/21 History hydralazine 25 mg PO Q8HR #60 tablet 11/27/20 03/16/21 Rx acetaminophen 1,000 mg PO Q6H PRN 03/16/21 03/16/21 History acidophilus-pectin, citrus
[2021-03-18 16:44] LABS: Glucose Point of Care 104 mg/dl (65-105)
[2021-03-18] MEDS: LATANOPROST 0.005% OP SOLN 2.5 ML BTL 1 DROP EACH EYE (20:43)
[2021-03-18] MEDS: INSULIN GLARGINE (*BKC) 100 UNITS/ML SUB-Q (20:44)
[2021-03-18 21:18] LABS: Glucose Point of Care 165 mg/dl (65-105)
[2021-03-19] VITALS (14 sets, daily range): BP systolic 119–133; BP diastolic 37–53; PULSE 55–80; RESP 16; TEMP 36.3–36.4; O2SAT 94–100
[2021-03-19] MEDS: AMPICILLIN 1 GM/NS 50 ML 1 GM/50 ML BAG IVPB ×3 (05:27→18:19)
[2021-03-19 05:49] LABS: Basophils Percent Auto 0.6 % (0.2-1.2); Eosinophils Absolute Auto 0.3 K/mm3 (0-0.3); Eosinophils Percent Auto 4.7 % (0-4.4); Hematocrit 29.8 % (37.0-47.0); Hemoglobin 9.2 g/dL (12.0-15.0); Immature Granulocyte Absolute 0.04 K/mm3 (0.00-0.031); Immature Granulocyte Percent A 0.6 % (0-0.5); Lymphocytes Absolute Auto 1.15 K/mm3 (0.9-3.2); Lymphocytes Percent Auto 17.3 % (18.3-44.2); Mean Corpuscular HGB Conc 30.9 g/dl (32-36); Mean Corpuscular Hemoglobin 27.8 pg (26-34); Mean Platelet Volume 10.4 fl (7.4-10.4); Monocytes Absolute Auto 0.7 K/mm3 (0.1-0.6); Monocytes Percent Auto 10.2 % (2.6-8.5); Neutrophils Absolute Auto 4.4 K/mm3 (1.3-6.7); Neutrophils Percent Auto 66.6 % (45.5-73.1); Platelet Count Result 208 k/mm3 (150-375); Red Blood Count 3.31 M/mm3 (4.2-5.4); Red Cell Distribution Width 15.4 % (11.5-14.5); White Blood Count 6.7 K/mm3 (4.5-10.0)
[2021-03-19 05:57] LABS: Albumin Level 2.9 g/dL (3.5-5.1); Anion Gap 5 mmol/L (8-16); Blood Urea Nitrogen 41 mg/dL (7-17); Calcium 8.7 mg/dL (8.4-10.2); Carbon Dioxide 28 mmol/L (22-30); Chloride 104 mmol/L (98-107); Estimated CRCL calculation 19 ml/min; Estimated Glomerular Filt Rate 28; Glucose 123 mg/dL (65-105); Phosphorus 3.2 mg/dL (2.5-4.5); Potassium 3.5 mmol/L (3.4-5.0); Sodium 137 mmol/L (137-145)
--- NOTE | 2021-03-19 08:25 | PM.PNCARD ---
Progress Note: A&P Assessment and Plan (1) Acute UTI: Code(s): N39.0 - Urinary tract infection, site not specified Status: Acute Assessment and Plan: On antibiotics as per hospitalist. (2) PAT (paroxysmal atrial tachycardia): Code(s): I47.1 - Supraventricular tachycardia Status: Acute Assessment and Plan: Started Metoprolol Tartate 50 mg PO BID to suppress PAC's and decrease burden of PAT. She is tolerating it well with slowest HR 46 bpm overnight and no more PAT. On Mag Ox 400 mg daily. (3) Elevated troponin: Code(s): R77.8 - Other specified abnormalities of plasma proteins Status: Acute Assessment and Plan: Doubt ACS as no symptomatology to suggest it. This could be due to UTI, CKD, hypertension and aortic stenosis and diastolic dysfunction. Echo shows no wall motion abnormality with normal EF, mod , diastolic dysfunction. (4) Bilateral lower extremity edema: Code(s): R60.0 - Localized edema Status: Acute Assessment and Plan: Could be contributed from side effect of Amlodipine. Decrease Amlodipine 2.5 mg daily and increase Hydralazine dose as needed. Due to edema of legs and small pleural effusions, resumed Torsemide 20 mg daily for a few days. Torsemide is on hold due to worsening kidney function to Cr 1.7 with it. Her Cr last year was up to 1.8 also. (5) Aortic stenosis: Qualifiers: Cardiac valve disease etiology: etiology unspecified Qualified Code(s): I35.0 - Nonrheumatic aortic (valve) stenosis Code(s): I35.0 - Nonrheumatic aortic (valve) stenosis Status: Chronic Assessment and Plan: Stable and moderate . (6) Benign essential hypertension: Code(s): I10 - Essential (primary) hypertension Status: Chronic Assessment and Plan: Stable. (7) CAD in [place] artery: Code(s): I25.10 - Atherosclerotic heart disease of [place] coronary artery without angina pectoris Status: Acute Assessment and Plan: Stable. Subjective Date/time seen: 03/19/21 08:25 Denies chest pain or sob. Exam Const: General: cooperative, healthy appearing and comfortable Resp: Auscultation: clear to auscultation bilaterally, no crackles, no rales, no rhonchi and no wheezes Cardio: Jugular venous distension: no JVD Rate: regular rate Rhythm: regular rhythm Heart sounds: Murmur heart sound present (III/ systolic murmur RICS) Peripheral pulses: dorsalis pedis present GI: GI Palp: No abdominal tenderness and Yes Soft to palpation Neuro: General: oriented to person, oriented to place and oriented to time Extrem: Right lower extremity: edema Left lower extremity: edema Other: Mild pedal edema bilaterally Objective Data Vital Signs Vital Signs: Vital Signs - 24 hr 03/18/21 09:15 03/18/21 12:00 03/18/21 14:00 Temperature 98.4 F Pulse Rate 65 62 Respiratory Rate 16 Blood Pressure 118/51 L Pulse Oximetry 97 97 03/18/21 16:00 03/18/21 16:57 03/18/21 19:56 Temperature Pulse Rate 60 63 Respiratory Rate Blood Pressure 138/52 L Pulse Oximetry 98 03/18/21 20:00 03/18/21 20:46 03/18/21 21:48 Temperature 97.5 F L Pulse Rate 59 L 63 63 Respiratory Rate 16 Blood Pressure 138/53 L Pulse Oximetry 98 03/19/21 00:00 03/19/21 04:00 03/19/21 06:00 Temperature 97.4 F L Pulse Rate 61 55 L 55 L Respiratory Rate 16 Blood Pressure 132/52 L Pulse Oximetry 100 Intake/Output Intake/Output: Intake & Output 03/16/21 03/17/21 03/18/21 03/19/21 23:59 23:59 23:59 23:59 Intake Total 977 331 3145 200 Output Total 920 400 Balance 550 710 770 -200 Meds/Results Medications: Active Medications Generic Name Dose Route Start Last Admin Trade Name Freq PRN Reason Stop Dose Admin Acetaminophen 1,000 mg 03/17/21 02:02 03/18/21 08:59 Acetaminophen 500 Mg Tablet PO 1,000 mg Q6H PRN Administration Pain (Scale Score 1-3) Hydrocodone
[2021-03-19 08:52] LABS: Glucose Point of Care 99 mg/dl (65-105)
[2021-03-19] MEDS: amLODIPine BESYLATE 2.5 MG TABLET PO (09:52)
[2021-03-19] MEDS: MAGNESIUM OXIDE 400 MG TABLET PO (09:52)
[2021-03-19] MEDS: lisinopriL 20 MG TABLET PO ×2 (09:52→16:29)
[2021-03-19] MEDS: METOPROLOL TARTRATE 50 MG TAB PO ×2 (09:52→19:58)
[2021-03-19] MEDS: APIXABAN 5 MG TABLET PO ×2 (09:52→16:28)
[2021-03-19] MEDS: POTASSIUM CHLORIDE 20 MEQ TABLET PO (09:52)
[2021-03-19] MEDS: PANTOPRAZOLE 40 MG TABLET PO (09:52)
[2021-03-19] MEDS: ACIDOPHILUS/BULGARICUS CHEWABLE TABLET 2 TABLET PO (09:53)
[2021-03-19] MEDS: hydrALAZINE HCL 25 MG TABLET PO ×3 (09:53→16:29)
[2021-03-19] MEDS: DICYCLOMINE HCL 10 MG CAPSULE 20 MG PO ×4 (09:53→19:57)
[2021-03-19] MEDS: SERTRALINE HCL 25 MG TABLET 75 MG PO (09:53)
[2021-03-19] MEDS: ACETAMINOPHEN 500 MG TABLET 1000 MG PO ×2 (10:03→16:25)
--- NOTE | 2021-03-19 10:16 | PM.IMPN ---
Progress Note: A&P Assessment and Plan (1) Acute UTI: Code(s): N39.0 - Urinary tract infection, site not specified Status: Acute Assessment and Plan: UA consistent with a UTI which could be causing her delirium since it is improving with treatment -UA growing >100,000 entercoccus. Continue ampicillin, adjust medications according to sensitivities -tachycardia resolved, likely due to infection -May benefit from a urologist outpt or Prophylactic abx as she has a hx of multiple UTIs (2) Lower extremity edema: Code(s): R60.0 - Localized edema Status: Acute Assessment and Plan: Persistent -could be due to right-sided heart failure since the patient does not have any crackles on exam and has moderate pulmonary hypertension -could also be due to Norvasc, cardiology has decrease this medication -will hold diuretic just for today to see if this improves her renal function. I plan to do Richard wraps for the legs and will see how she does tomorrow -may consider resuming diuretic tomorrow if she does not have much improvement (3) Altered mental status: Qualifiers: Altered mental status type: unspecified Qualified Code(s): R41.82 - Altered mental status, unspecified Code(s): R41.82 - Altered mental status, unspecified Status: Acute Assessment and Plan: Likely secondary to urinary tract infection -ddx is her pain medication buprenorphine patch. This was just increased last week which could be causing her symptoms but seems less likely since this is improved. -CT of the brain negative (4) PAT (paroxysmal atrial tachycardia): Code(s): I47.1 - Supraventricular tachycardia Status: Acute Assessment and Plan: Resolved She has a hx of this and denies afib -HR now NSR rate 60 but she was lower throughout the night -Pt now on metoprolol 50 BID. Consider decreasing dose if pt has persistent bradycardia. -EKG without significant worrisome ST changes but trop was elevated but echo with no wall motion abnormalities. Doubt ACS. Patient has had no chest pain whatsoever -continue deya -Dr. Winters consulted (5) Chronic kidney disease (CKD) stage G4/A1, severely decreased glomerular filtration rate (GFR) between 15-29 mL/min/1.73 square meter and albuminuria creatinine ratio less than 30 mg/g: Code(s): N18.4 - Chronic kidney disease, stage 4 (severe) Status: Acute Assessment and Plan: Creatinine 1.7 -ultrasound shows only renal cyst -patient is fluid overloaded but worsening creatinine. Will hold diuretic today, use an Richard wrap on the lower extremities and cardiology has decrease amlodipine in case that is causing issues. If this worsens tomorrow, may consider consulting Nephrology for further workup. Also wait the sensitivities to ensure we are treating the UTI correctly (6) CAD in [place] artery: Code(s): I25.10 - Atherosclerotic heart disease of [place] coronary artery without angina pectoris Status: Acute Assessment and Plan: Stable -no current CP and echo does not show any wall motion abnormalities (7) Benign essential hypertension: Code(s): I10 - Essential (primary) hypertension Status: Chronic Assessment and Plan: last bp 132/52 -continue lisinopril, amlodipine, hydralazine and now metoprolol (8) Aortic stenosis: Qualifiers: Cardiac valve disease etiology: etiology unspecified Qualified Code(s): I35.0 - Nonrheumatic aortic (valve) stenosis Code(s): I35.0 - Nonrheumatic aortic (valve) stenosis Status: Chronic Assessment and Plan: Moderate on echo -monitor (9) Type 2 diabetes mellitus with hyperglycemia, with long-term current use of insulin: Onset Date: ~1979 Code(s): E11.65 - Type 2 diabetes mellitus with hyperglycemia; Z79.4 - superintendent terminal (current) use of insulin Status: Chronic Assessment and Plan: Last g
[2021-03-19 12:05] LABS: Glucose Point of Care 202 mg/dl (65-105)
[2021-03-19] MEDS: INSULIN ASPART (*BKC) 100 UNITS/ML SUB-Q (12:22)
--- NOTE | 2021-03-19 12:39 | PC.NURSE ---
call to pharm for missing hydralazine
[2021-03-19 16:38] LABS: Glucose Point of Care 87 mg/dl (65-105)
[2021-03-19] MEDS: INSULIN GLARGINE (*BKC) 100 UNITS/ML SUB-Q (19:58)
[2021-03-19] MEDS: LATANOPROST 0.005% OP SOLN 2.5 ML BTL 1 DROP EACH EYE (19:58)
[2021-03-19 21:09] LABS: Glucose Point of Care 217 mg/dl (65-105)
[2021-03-20] VITALS (14 sets, daily range): BP systolic 142–143; BP diastolic 47–50; PULSE 57–66; RESP 16–18; TEMP 36.3–36.6; O2SAT 90–96
[2021-03-20] MEDS: AMPICILLIN 1 GM/NS 50 ML 1 GM/50 ML BAG IVPB ×2 (00:29→04:59)
[2021-03-20] MEDS: ACETAMINOPHEN 500 MG TABLET 1000 MG PO ×3 (04:58→19:24)
[2021-03-20 06:07] LABS: Albumin Level 2.8 g/dL (3.5-5.1); Anion Gap 4 mmol/L (8-16); Blood Urea Nitrogen 50 mg/dL (7-17); Calcium 8.9 mg/dL (8.4-10.2); Carbon Dioxide 28 mmol/L (22-30); Chloride 106 mmol/L (98-107); Estimated CRCL calculation 16 ml/min; Estimated Glomerular Filt Rate 24; Glucose 156 mg/dL (65-105); Phosphorus 3.3 mg/dL (2.5-4.5); Potassium 3.8 mmol/L (3.4-5.0); Sodium 138 mmol/L (137-145)
[2021-03-20 06:14] LABS: Transferrin 117 mg/dL (206-381)
[2021-03-20 06:24] LABS: Iron 32 ug/dL (37-170)
[2021-03-20 06:34] LABS: Percent Iron Saturation 19 % (20-50)
[2021-03-20 07:11] LABS: Folic Acid 5.1 ng/mL (2.76->20)
--- NOTE | 2021-03-20 07:32 | PM.PNCARD ---
Progress Note: A&P Assessment and Plan (1) Acute UTI: Code(s): N39.0 - Urinary tract infection, site not specified Status: Acute Assessment and Plan: On antibiotics as per hospitalist. (2) PAT (paroxysmal atrial tachycardia): Code(s): I47.1 - Supraventricular tachycardia Status: Acute Assessment and Plan: Started Metoprolol Tartate 50 mg PO BID to suppress PAC's and decrease burden of PAT. She is tolerating it well with slowest HR 48 bpm overnight and no more PAT. On Mag Ox 400 mg daily. May d/c home from cardiology standpoint. Have her f/u with me in 1-2 weeks. (3) Elevated troponin: Code(s): R77.8 - Other specified abnormalities of plasma proteins Status: Acute Assessment and Plan: Doubt ACS as no symptomatology to suggest it. This could be due to UTI, CKD, hypertension and aortic stenosis and diastolic dysfunction. Echo shows no wall motion abnormality with normal EF, mod , diastolic dysfunction. (4) Bilateral lower extremity edema: Code(s): R60.0 - Localized edema Status: Acute Assessment and Plan: Could be contributed from side effect of Amlodipine. Decrease Amlodipine 2.5 mg daily and increase Hydralazine dose as needed. Due to edema of legs and small pleural effusions, resumed Torsemide 20 mg daily for a few days. Torsemide is on hold due to worsening kidney function to Cr 2.0 with it. Her Cr last year was up to 2.1 on 03/25/20. (5) Aortic stenosis: Qualifiers: Cardiac valve disease etiology: etiology unspecified Qualified Code(s): I35.0 - Nonrheumatic aortic (valve) stenosis Code(s): I35.0 - Nonrheumatic aortic (valve) stenosis Status: Chronic Assessment and Plan: Stable and moderate . (6) Benign essential hypertension: Code(s): I10 - Essential (primary) hypertension Status: Chronic Assessment and Plan: Stable. (7) CAD in [place] artery: Code(s): I25.10 - Atherosclerotic heart disease of [place] coronary artery without angina pectoris Status: Acute Assessment and Plan: Stable. Subjective Date/time seen: 03/20/21 07:32 Denies chest pain, sob, palpitations. Exam Const: General: cooperative, healthy appearing and comfortable Resp: Auscultation: clear to auscultation bilaterally, no crackles, no rales, no rhonchi and no wheezes Cardio: Jugular venous distension: no JVD Rate: regular rate Rhythm: regular rhythm Heart sounds: Murmur heart sound present (III/ systolic murmur RICS) Peripheral pulses: dorsalis pedis present GI: GI Palp: No abdominal tenderness and Yes Soft to palpation Neuro: General: oriented to person, oriented to place and oriented to time Extrem: Right lower extremity: edema Left lower extremity: edema Other: Mild pedal edema bilaterally Objective Data Vital Signs Vital Signs: Vital Signs - 24 hr 03/19/21 08:00 03/19/21 09:00 03/19/21 09:52 Temperature Pulse Rate 62 68 68 Respiratory Rate 16 Blood Pressure Pulse Oximetry 94 03/19/21 10:59 03/19/21 12:00 03/19/21 12:39 Temperature Pulse Rate 56 L Respiratory Rate Blood Pressure 119/37 L Pulse Oximetry 94 03/19/21 14:15 03/19/21 16:00 03/19/21 19:58 Temperature 97.4 F L Pulse Rate 57 L 61 80 Respiratory Rate 16 Blood Pressure 122/48 L Pulse Oximetry 100 03/19/21 20:00 03/19/21 21:35 03/20/21 00:00 Temperature 97.6 F Pulse Rate 62 65 62 Respiratory Rate 16 Blood Pressure 133/53 L Pulse Oximetry 100 03/20/21 04:00 03/20/21 05:34 Temperature 97.8 F Pulse Rate 60 61 Respiratory Rate 16 Blood Pressure 143/50 H Pulse Oximetry 96 Intake/Output Intake/Output: Intake & Output 03/17/21 03/18/21 03/19/21 03/20/21 23:59 23:59 23:59 23:59 Intake Total 710 1690 880 500 Output Total 920 400 Balance 710 770 480 500 Meds/Results Medications: Active Medications Generic Name Dose Route Start Last Admin
[2021-03-20 08:02] LABS: Glucose Point of Care 131 mg/dl (65-105)
[2021-03-20] MEDS: ACIDOPHILUS/BULGARICUS CHEWABLE TABLET 2 TABLET PO (09:36)
[2021-03-20] MEDS: APIXABAN 2.5 MG TABLET PO ×2 (09:36→17:47)
[2021-03-20] MEDS: DICYCLOMINE HCL 10 MG CAPSULE 20 MG PO ×4 (09:36→20:29)
[2021-03-20] MEDS: SERTRALINE HCL 25 MG TABLET 75 MG PO (09:37)
[2021-03-20] MEDS: hydrALAZINE HCL 25 MG TABLET PO ×3 (09:37→17:46)
[2021-03-20] MEDS: PANTOPRAZOLE 40 MG TABLET PO (09:37)
[2021-03-20] MEDS: MAGNESIUM OXIDE 400 MG TABLET PO (09:37)
[2021-03-20] MEDS: amLODIPine BESYLATE 2.5 MG TABLET PO (09:38)
[2021-03-20] MEDS: METOPROLOL TARTRATE 50 MG TAB PO ×2 (09:38→20:29)
--- NOTE | 2021-03-20 11:30 | PM.IMPN ---
Progress Note: A&P Assessment and Plan (1) Acute UTI: Code(s): N39.0 - Urinary tract infection, site not specified Status: Acute Assessment and Plan: UA consistent with a UTI which could be causing her delirium since it is improving with treatment -UA growing >100,000 entercoccus only sensitive to vanc which was started 03/20/21 -tachycardia resolved, likely due to infection -May benefit from a urologist outpt or Prophylactic abx as she has a hx of multiple UTIs (2) Lower extremity edema: Code(s): R60.0 - Localized edema Status: Acute Assessment and Plan: Persistent but improved with RICHARD wrap. -could be due to right-sided heart failure since the patient does not have any crackles on exam and has moderate pulmonary hypertension -could also be due to Norvasc, cardiology has decrease this medication -will hold diuretic again today to see if this improves her renal function. (3) Altered mental status: Qualifiers: Altered mental status type: unspecified Qualified Code(s): R41.82 - Altered mental status, unspecified Code(s): R41.82 - Altered mental status, unspecified Status: Acute Assessment and Plan: Likely secondary to urinary tract infection -ddx is her pain medication buprenorphine patch. This was just increased last week which could be causing her symptoms but seems less likely since this is improved. -CT of the brain negative (4) PAT (paroxysmal atrial tachycardia): Code(s): I47.1 - Supraventricular tachycardia Status: Acute Assessment and Plan: Resolved She has a hx of this and denies afib -HR now NSR rate 60 but she was lower throughout the night -Pt now on metoprolol 50 BID. Consider decreasing dose if pt has persistent bradycardia and develops symptoms -EKG without significant worrisome ST changes but trop was elevated but echo with no wall motion abnormalities. Doubt ACS. Patient has had no chest pain whatsoever -continue deya -Dr. Winters consulted (5) Chronic kidney disease (CKD) stage G4/A1, severely decreased glomerular filtration rate (GFR) between 15-29 mL/min/1.73 square meter and albuminuria creatinine ratio less than 30 mg/g: Code(s): N18.4 - Chronic kidney disease, stage 4 (severe) Status: Acute Assessment and Plan: Creatinine up today 2.0 which is a bit surprising -ultrasound shows only renal cyst -patient is fluid overloaded but worsening creatinine. Will continue to hold diuretic today, use an Richard wrap on the lower extremities and cardiology has decrease amlodipine in case that is causing issues. -UTI now being treated with appropriate ABX, hopefully this will improve it -hold lisinopril -If this worsens tomorrow with above changes, may consider consulting Nephrology for further workup. (6) CAD in [place] artery: Code(s): I25.10 - Atherosclerotic heart disease of [place] coronary artery without angina pectoris Status: Acute Assessment and Plan: Stable -no current CP and echo does not show any wall motion abnormalities (7) Benign essential hypertension: Code(s): I10 - Essential (primary) hypertension Status: Chronic Assessment and Plan: last bp 143/50 -continue amlodipine, hydralazine and now metoprolol (8) Aortic stenosis: Qualifiers: Cardiac valve disease etiology: etiology unspecified Qualified Code(s): I35.0 - Nonrheumatic aortic (valve) stenosis Code(s): I35.0 - Nonrheumatic aortic (valve) stenosis Status: Chronic Assessment and Plan: Moderate on echo -monitor (9) Type 2 diabetes mellitus with hyperglycemia, with long-term current use of insulin: Onset Date: ~1979 Code(s): E11.65 - Type 2 diabetes mellitus with hyperglycemia; Z79.4 - custodial (current) use of insulin Status: Chronic Assessment and Plan: Last glucose 131 -continue lantus 5u at night as well
[2021-03-20 11:52] LABS: Glucose Point of Care 185 mg/dl (65-105)
[2021-03-20 17:07] LABS: Glucose Point of Care 192 mg/dl (65-105)
[2021-03-20] MEDS: LATANOPROST 0.005% OP SOLN 2.5 ML BTL 1 DROP EACH EYE (20:29)
[2021-03-20] MEDS: INSULIN GLARGINE (*BKC) 100 UNITS/ML SUB-Q (20:30)
[2021-03-20 20:47] LABS: Glucose Point of Care 266 mg/dl (65-105)
[2021-03-21] VITALS (12 sets, daily range): BP systolic 127–157; BP diastolic 47–55; PULSE 55–70; RESP 14–20; TEMP 36.4–36.9; O2SAT 93–98
[2021-03-21 05:41] LABS: Basophils Percent Auto 0.6 % (0.2-1.2); Eosinophils Absolute Auto 0.3 K/mm3 (0-0.3); Eosinophils Percent Auto 4.6 % (0-4.4); Hematocrit 30.4 % (37.0-47.0); Hemoglobin 9.4 g/dL (12.0-15.0); Immature Granulocyte Absolute 0.03 K/mm3 (0.00-0.031); Immature Granulocyte Percent A 0.5 % (0-0.5); Lymphocytes Absolute Auto 1.06 K/mm3 (0.9-3.2); Lymphocytes Percent Auto 16.3 % (18.3-44.2); Mean Corpuscular HGB Conc 30.9 g/dl (32-36); Mean Corpuscular Hemoglobin 27.5 pg (26-34); Mean Corpuscular Volume 88.9 fl (80-100); Mean Platelet Volume 11.2 fl (7.4-10.4); Monocytes Absolute Auto 0.5 K/mm3 (0.1-0.6); Monocytes Percent Auto 8.2 % (2.6-8.5); Neutrophils Absolute Auto 4.5 K/mm3 (1.3-6.7); Neutrophils Percent Auto 69.8 % (45.5-73.1); Platelet Count Result 216 k/mm3 (150-375); Red Blood Count 3.42 M/mm3 (4.2-5.4); Red Cell Distribution Width 15.3 % (11.5-14.5); White Blood Count 6.5 K/mm3 (4.5-10.0)
[2021-03-21 06:08] LABS: Alanine Aminotransferase 15 U/L (4-35); Albumin Level 2.9 g/dL (3.5-5.1); Alkaline Phosphatase 66 U/L (38-126); Anion Gap 5 mmol/L (8-16); Aspartate Amino Transferase 19 U/L (14-36); Bilirubin,Total 0.2 mg/dL (0.2-1.3); Blood Urea Nitrogen 57 mg/dL (7-17); Calcium 9.2 mg/dL (8.4-10.2); Carbon Dioxide 27 mmol/L (22-30); Chloride 104 mmol/L (98-107); Estimated CRCL calculation 19 ml/min; Estimated Glomerular Filt Rate 28; Glucose 215 mg/dL (65-105); Potassium 3.9 mmol/L (3.4-5.0); Sodium 136 mmol/L (137-145)
[2021-03-21 06:49] LABS: Magnesium 2.1 mg/dL (1.6-2.3)
[2021-03-21 07:33] LABS: Glucose Point of Care 196 mg/dl (65-105)
--- NOTE | 2021-03-21 07:46 | PM.PNCARD ---
Progress Note: A&P Assessment and Plan (1) Acute UTI: Code(s): N39.0 - Urinary tract infection, site not specified Status: Acute Assessment and Plan: On antibiotics as per hospitalist. (2) PAT (paroxysmal atrial tachycardia): Code(s): I47.1 - Supraventricular tachycardia Status: Acute Assessment and Plan: Started Metoprolol Tartate 50 mg PO BID to suppress PAC's and decrease burden of PAT. She is tolerating it well with slowest HR 49 bpm overnight and no more PAT. On Mag Ox 400 mg daily. Mag is 2.1 today. May d/c home from cardiology standpoint. Have her f/u with me in 1-2 weeks. (3) Elevated troponin: Code(s): R77.8 - Other specified abnormalities of plasma proteins Status: Acute Assessment and Plan: Doubt ACS as no symptomatology to suggest it. This could be due to UTI, CKD, hypertension and aortic stenosis and diastolic dysfunction. Echo shows no wall motion abnormality with normal EF, mod , diastolic dysfunction. (4) Bilateral lower extremity edema: Code(s): R60.0 - Localized edema Status: Acute Assessment and Plan: Could be contributed from side effect of Amlodipine. Decrease Amlodipine 2.5 mg daily and increase Hydralazine dose as needed. Due to edema of legs and small pleural effusions, resumed Torsemide 20 mg daily for a few days. Torsemide is on hold due to worsening kidney function to Cr 2.0 which improved to 1.7. Her Cr last year was up to 2.1 on 03/25/20. (5) Aortic stenosis: Qualifiers: Cardiac valve disease etiology: etiology unspecified Qualified Code(s): I35.0 - Nonrheumatic aortic (valve) stenosis Code(s): I35.0 - Nonrheumatic aortic (valve) stenosis Status: Chronic Assessment and Plan: Stable and moderate . (6) Benign essential hypertension: Code(s): I10 - Essential (primary) hypertension Status: Chronic Assessment and Plan: Lisinopril is on hold due to worsening kidney function, probably from diuresis. Will stop Amlodipine 2.5 mg daily completely due to pedal edema. Increase Hydralazine 50 mg TID for BP control. (7) CAD in [place] artery: Code(s): I25.10 - Atherosclerotic heart disease of [place] coronary artery without angina pectoris Status: Acute Assessment and Plan: Stable. Subjective Date/time seen: 03/21/21 07:46 Reports she felt shakey this morning and requested her BS be checked, and it was not low. Denies chest pain or sob. She admits feeling some anxiety. Exam Const: General: cooperative, healthy appearing and comfortable Resp: Auscultation: clear to auscultation bilaterally, no crackles, no rales, no rhonchi and no wheezes Cardio: Jugular venous distension: no JVD Rate: regular rate Rhythm: regular rhythm Heart sounds: Murmur heart sound present (III/ systolic murmur RICS) Peripheral pulses: dorsalis pedis present GI: GI Palp: No abdominal tenderness and Yes Soft to palpation Neuro: General: oriented to person, oriented to place and oriented to time Extrem: Right lower extremity: edema Left lower extremity: edema Other: Mild pedal edema bilaterally Objective Data Vital Signs Vital Signs: Vital Signs - 24 hr 03/20/21 08:00 03/20/21 09:38 03/20/21 12:00 Temperature Pulse Rate 60 60 66 Respiratory Rate 16 Blood Pressure Pulse Oximetry 96 03/20/21 14:04 03/20/21 14:05 03/20/21 16:00 Temperature Pulse Rate 59 L 59 L 58 L Respiratory Rate 18 18 Blood Pressure Pulse Oximetry 95 95 03/20/21 16:18 03/20/21 16:19 03/20/21 20:00 Temperature Pulse Rate 62 62 57 L Respiratory Rate 18 18 Blood Pressure Pulse Oximetry 95 95 03/20/21 20:29 03/20/21 21:26 03/21/21 00:00 Temperature 97.3 F L Pulse Rate 64 61 61 Respiratory Rate 16 Blood Pressure 142/47 H Pulse Oximetry 90 03/21/21 04:00 03/21/21 05:32 Temperature 98.5 F Pulse Rate 62 55 L Respiratory Rate 16 Blood Pressure
[2021-03-21] MEDS: ACETAMINOPHEN 500 MG TABLET 1000 MG PO (08:08)
[2021-03-21] MEDS: DICYCLOMINE HCL 10 MG CAPSULE 20 MG PO ×4 (08:11→21:37)
[2021-03-21] MEDS: MAGNESIUM OXIDE 400 MG TABLET PO (08:11)
[2021-03-21] MEDS: METOPROLOL TARTRATE 50 MG TAB PO ×2 (08:11→21:37)
[2021-03-21] MEDS: SERTRALINE HCL 25 MG TABLET 75 MG PO (08:11)
[2021-03-21] MEDS: PANTOPRAZOLE 40 MG TABLET PO (08:12)
[2021-03-21] MEDS: ACIDOPHILUS/BULGARICUS CHEWABLE TABLET 2 TABLET PO (08:12)
[2021-03-21] MEDS: APIXABAN 2.5 MG TABLET PO ×2 (08:12→16:34)
[2021-03-21] MEDS: hydrALAZINE HCL 50 MG TABLET PO ×3 (08:13→16:34)
--- NOTE | 2021-03-21 11:24 | PM.IMPN ---
Progress Note: A&P Assessment and Plan (1) Acute UTI: Code(s): N39.0 - Urinary tract infection, site not specified Status: Acute Assessment and Plan: UA consistent with a UTI which could be what caused her delirium since it is resolved with treatment -UA growing >100,000 entercoccus only sensitive to vanc which was started 03/20/21 due to lab delay from technical issues. -tachycardia resolved, likely due to infection -May benefit from a urologist outpt or Prophylactic abx as she has a hx of multiple UTIs (2) Lower extremity edema: Code(s): R60.0 - Localized edema Status: Acute Assessment and Plan: Persistent but improved with RICHARD wrap. -could be due to right-sided heart failure since the patient does not have any crackles on exam and has moderate pulmonary hypertension -could also be due to Norvasc, cardiology has decreased this medication -will hold diuretic again today to see if this improves her renal function. -I am going to check FeNA and if it does not show pre renal causes, consider starting very low dose of diuretic. I spoke with her about her kidney dysfunction, aortic stenosis, and swelling. She might have a bit of swelling to preserve kidney function and high doses of diuretics reducing pre-load which is needed in . (3) Altered mental status: Qualifiers: Altered mental status type: unspecified Qualified Code(s): R41.82 - Altered mental status, unspecified Code(s): R41.82 - Altered mental status, unspecified Status: Acute Assessment and Plan: Likely secondary to urinary tract infection -ddx is her pain medication buprenorphine patch. This was just increased last week which could be causing her symptoms but seems less likely since this is improved. -CT of the brain negative (4) PAT (paroxysmal atrial tachycardia): Code(s): I47.1 - Supraventricular tachycardia Status: Acute Assessment and Plan: Resolved She has a hx of this and denies afib -HR now sinus angie but 55 -Pt now on metoprolol 50 BID. Consider decreasing dose if pt has persistent bradycardia and develops symptoms -EKG without significant worrisome ST changes but trop was elevated but echo with no wall motion abnormalities. Doubt ACS. Patient has had no chest pain whatsoever -continue elikirstin -Dr. Winters consulted, d/c from cardiology perspective. Will d/c tele. (5) Chronic kidney disease (CKD) stage G4/A1, severely decreased glomerular filtration rate (GFR) between 15-29 mL/min/1.73 square meter and albuminuria creatinine ratio less than 30 mg/g: Code(s): N18.4 - Chronic kidney disease, stage 4 (severe) Status: Acute Assessment and Plan: Creatinine up today 2.0 yesterday and 1.7 today -Family and pt state her kidneys usually return to normal after infection or problem. -Will check urine protein, Cr, and sodium and calculate a FeNA -ultrasound shows only renal cyst -patient is fluid overloaded but elevated Cr. Will continue to hold diuretic today, use an Richard wrap on the lower extremities and cardiology has decreased amlodipine in case that is causing issues. -Depending on FeNa, may consider a small dose of lasix -Pt now on vanc, which can alter the kidney fx as well -If she does not improve, consider nephrology consult. -UTI now being treated with appropriate ABX, hopefully this will improve it -Continue to hold lisinopril (6) CAD in [place] artery: Code(s): I25.10 - Atherosclerotic heart disease of [place] coronary artery without angina pectoris Status: Acute Assessment and Plan: Stable -no current CP and echo does not show any wall motion abnormalities (7) Benign essential hypertension: Code(s): I10 - Essential (primary) hypertension Status: Chronic Assessment and Plan: last bp 157/54 -continue amlodipine, hydralazine (increased from 25 to 50TID today) and metoprolol (8) Aortic [place]
[2021-03-21 12:13] LABS: Sodium 135 mmol/L (137-145)
[2021-03-21 12:14] LABS: Glucose Point of Care 233 mg/dl (65-105)
[2021-03-21] MEDS: INSULIN ASPART (*BKC) 100 UNITS/ML SUB-Q (12:52)
[2021-03-21 17:34] LABS: Glucose Point of Care 169 mg/dl (65-105)
[2021-03-21] MEDS: INSULIN GLARGINE (*BKC) 100 UNITS/ML SUB-Q (21:38)
[2021-03-21] MEDS: LATANOPROST 0.005% OP SOLN 2.5 ML BTL 1 DROP EACH EYE (21:38)
[2021-03-21 21:52] LABS: Glucose Point of Care 248 mg/dl (65-105)
[2021-03-22 01:48] LABS: Creatinine Urine 82.8 mg/dL
[2021-03-22 05:43] LABS: Hematocrit 29.9 % (37.0-47.0); Hemoglobin 9.2 g/dL (12.0-15.0); Mean Corpuscular HGB Conc 30.8 g/dl (32-36); Mean Corpuscular Hemoglobin 27.5 pg (26-34); Mean Corpuscular Volume 89.5 fl (80-100); Mean Platelet Volume 11.2 fl (7.4-10.4); Platelet Count Result 232 k/mm3 (150-375); Red Blood Count 3.34 M/mm3 (4.2-5.4); Red Cell Distribution Width 15.5 % (11.5-14.5); White Blood Count 7.4 K/mm3 (4.5-10.0)
[2021-03-22 06:00] VITALS: BP 149/50; PULSE 57; RESP 20; TEMP 36.6; O2SAT 99
[2021-03-22 06:05] LABS: Total Protein Urine Random 22 mg/dL
[2021-03-22 06:09] LABS: Anion Gap 5 mmol/L (8-16); Blood Urea Nitrogen 53 mg/dL (7-17); Calcium 9.5 mg/dL (8.4-10.2); Carbon Dioxide 29 mmol/L (22-30); Chloride 104 mmol/L (98-107); Estimated CRCL calculation 19 ml/min; Estimated Glomerular Filt Rate 28; Glucose 141 mg/dL (65-105); Magnesium 2.3 mg/dL (1.6-2.3); Phosphorus 3.1 mg/dL (2.5-4.5); Potassium 3.7 mmol/L (3.4-5.0); Sodium 138 mmol/L (137-145)
--- NOTE | 2021-03-22 08:21 | PM.PNCARD ---
Progress Note: A&P Assessment and Plan (1) Acute UTI: Code(s): N39.0 - Urinary tract infection, site not specified Status: Acute Assessment and Plan: On antibiotics as per hospitalist. (2) PAT (paroxysmal atrial tachycardia): Code(s): I47.1 - Supraventricular tachycardia Status: Acute Assessment and Plan: Started Metoprolol Tartate 50 mg PO BID to suppress PAC's and decrease burden of PAT. She is tolerating it well with slowest HR 49 bpm overnight and no more PAT. On Mag Ox 400 mg daily. Mag is 2.3 today. Will stop Mag Ox. May d/c home from cardiology standpoint. Have her f/u with me in 1-2 weeks. (3) Elevated troponin: Code(s): R77.8 - Other specified abnormalities of plasma proteins Status: Acute Assessment and Plan: Doubt ACS as no symptomatology to suggest it. This could be due to UTI, CKD, hypertension and aortic stenosis and diastolic dysfunction. Echo shows no wall motion abnormality with normal EF, mod , diastolic dysfunction. (4) Bilateral lower extremity edema: Code(s): R60.0 - Localized edema Status: Acute Assessment and Plan: Could be contributed from side effect of Amlodipine. Decrease Amlodipine 2.5 mg daily and increase Hydralazine dose as needed. Due to edema of legs and small pleural effusions, resumed Torsemide 20 mg daily for a few days. Torsemide is on hold due to worsening kidney function to Cr 2.0 which improved to 1.7. Her Cr last year was up to 2.1 on 03/25/20. (5) Aortic stenosis: Qualifiers: Cardiac valve disease etiology: etiology unspecified Qualified Code(s): I35.0 - Nonrheumatic aortic (valve) stenosis Code(s): I35.0 - Nonrheumatic aortic (valve) stenosis Status: Chronic Assessment and Plan: Stable and moderate . (6) Benign essential hypertension: Code(s): I10 - Essential (primary) hypertension Status: Chronic Assessment and Plan: Lisinopril is on hold due to worsening kidney function, probably from diuresis. Stopped Amlodipine 2.5 mg daily completely due to pedal edema. Decrease Hydralazine 25 mg TID as BP is controlled. (7) CAD in [place] artery: Code(s): I25.10 - Atherosclerotic heart disease of [place] coronary artery without angina pectoris Status: Acute Assessment and Plan: Stable. Subjective Date/time seen: 03/22/21 08:21 She reports feeling vague shakiness . Denies chest pain or sob. Exam Const: General: cooperative, healthy appearing and comfortable Resp: Auscultation: clear to auscultation bilaterally, no crackles, no rales, no rhonchi and no wheezes Cardio: Jugular venous distension: no JVD Rate: regular rate Rhythm: regular rhythm Heart sounds: Murmur heart sound present (III/ systolic murmur RICS) Peripheral pulses: dorsalis pedis present GI: GI Palp: No abdominal tenderness and Yes Soft to palpation Neuro: General: oriented to person, oriented to place and oriented to time Extrem: Right lower extremity: edema Left lower extremity: edema Other: Mild pedal edema bilaterally Objective Data Vital Signs Vital Signs: Vital Signs - 24 hr 03/21/21 12:00 03/21/21 14:00 03/21/21 16:00 Temperature 97.6 F Pulse Rate 61 61 61 Respiratory Rate 14 Blood Pressure 133/55 L Pulse Oximetry 94 03/21/21 20:00 03/21/21 21:37 03/21/21 22:00 Temperature 97.7 F Pulse Rate 70 60 65 Respiratory Rate 20 Blood Pressure 127/47 L Pulse Oximetry 98 03/22/21 06:00 Temperature 97.8 F Pulse Rate 57 L Respiratory Rate 20 Blood Pressure 149/50 H Pulse Oximetry 99 Intake/Output Intake/Output: Intake & Output 03/19/21 03/20/21 03/21/21 03/22/21 23:59 23:59 23:59 23:59 Intake Total 880 1930 1570 300 Output Total 400 450 Balance 480 1930 1570 -150 Meds/Results Medications: Active Medications Generic Name Dose Route Start Last Admin Trade Name Freq PRN Reason Stop Dose Admin Acetaminophen 1,00
[2021-03-22 08:28] LABS: Glucose Point of Care 129 mg/dl (65-105)
[2021-03-22 09:45] VITALS: BP 147/47; PULSE 61
[2021-03-22] MEDS: DICYCLOMINE HCL 10 MG CAPSULE 20 MG PO ×3 (09:46→16:41)
[2021-03-22] MEDS: ACETAMINOPHEN 500 MG TABLET 1000 MG PO ×2 (09:46→16:50)
[2021-03-22] MEDS: PANTOPRAZOLE 40 MG TABLET PO (09:47)
[2021-03-22] MEDS: ACIDOPHILUS/BULGARICUS CHEWABLE TABLET 2 TABLET PO (09:47)
[2021-03-22] MEDS: APIXABAN 2.5 MG TABLET PO ×2 (09:48→16:41)
[2021-03-22] MEDS: SERTRALINE HCL 25 MG TABLET 75 MG PO (09:49)
[2021-03-22] MEDS: METOPROLOL TARTRATE 50 MG TAB PO (09:49)
[2021-03-22] MEDS: ONDANSETRON INJ 4 MG/2 ML VIAL IV PUSH (09:54)
[2021-03-22 10:13] LABS: Glucose Point of Care 165 mg/dl (65-105)
--- NOTE | 2021-03-22 11:36 | WPDNEUROPN ---
Progress Note: A&P Additional Plan his stable with generalized weakness for which she is concerned about which is obviously multifactorial she will benefit from the physical therapy Review of Systems Review of Systems: All systems reviewed & are unremarkable except as noted in HPI and below Exam Const: General: cooperative, healthy appearing, comfortable and no acute distress HENMT: Head: normal to inspection Ears: hearing grossly normal bilaterally General nose exam: Normal external nose present Face and sinus: normal facial exam Eyes: General: appearance normal, both eyes and all related structures Visual Green: normal visual green by confrontation Alignment and Position: alignment normal Periorbital: periorbital findings normal Eyelids: eyelids normal Conjunctivae: conjunctivae normal Sclera: sclerae normal Cornea: corneas normal Pupils: Equal, round and reactive pupils present EOM: EOMs intact bilaterally Resp: Effort & Inspection: able to speak in complete sentences Auscultation: clear to auscultation bilaterally Cardio: Rate: regular rate Neuro: General: oriented to person, oriented to place, oriented to time and patient oriented x3 Cranial nerves: Yes CN's II-XII intact bilaterally Cognition (Neuro): normal cognition Speech: normal speech Motor exam (neuro): Abnormal motor strength present ( distally but improved) Deep tendon reflexes (DTR's): Right triceps reflex intensity grade: 1+, Left triceps reflex intensity grade: 1+, Rt Biceps (C5, C6): 1+, Left biceps reflex intensity grade: 1+, Right brachioradialis reflex intensity grade: 1+, Left brachioradialis reflex intensity grade: 1+, Right patellar reflex intensity grade: 1+, Left patellar reflex intensity grade: 1+, Right ankle reflex intensity grade: 1+ and Left ankle reflex intensity grade: 1+ Plantar Reflex Responses: downgoing: bilateral Coordination: [id number] test normal Psych: Appearance: grossly normal Objective Data Vital Signs Vital Signs: Vital Signs - 24 hr 03/21/21 12:00 03/21/21 14:00 03/21/21 16:00 Temperature 36.4 C Pulse Rate 61 61 61 Respiratory Rate 14 Blood Pressure 133/55 L Pulse Oximetry 94 03/21/21 20:00 03/21/21 21:37 03/21/21 22:00 Temperature 36.5 C Pulse Rate 70 60 65 Respiratory Rate 20 Blood Pressure 127/47 L Pulse Oximetry 98 03/22/21 06:00 Temperature 36.6 C Pulse Rate 57 L Respiratory Rate 20 Blood Pressure 149/50 H Pulse Oximetry 99 Intake/Output Intake/Output: Intake & Output 03/19/21 03/20/21 03/21/21 03/22/21 23:59 23:59 23:59 23:59 Intake Total 880 1930 1570 420 Output Total 400 450 Balance 480 1930 1570 -30 Meds/Results Medications: Active Medications Generic Name Dose Route Start Last Admin Trade Name Freq PRN Reason Stop Dose Admin Acetaminophen 1,000 mg 03/17/21 02:02 03/22/21 09:46 Acetaminophen 500 Mg Tablet PO 1,000 mg Q6H PRN Administration Pain (Scale Score 1-3) Hydrocodone Bitart/Acetaminophen 1 tab 03/16/21 18:02 Hydrocodone/Acetaminophen (*Crx) 5-325 Mg Tablet PO Q4H PRN Pain Rated 4-6 Apixaban 2.5 mg 03/20/21 09:00 03/22/21 09:48 Apixaban 2.5 Mg Tablet PO 2.5 mg BID [facility] Administration Artificial Tears 2 drop 03/17/21 09:00 03/22/21 09:48 Artificial Tears Op Soln 15 Ml Bottle EACH EYE 04/16/21 09:01 2 drop BID [facility] Administration Dextrose 12.5 gm 03/17/21 11:23 Dextrose 50% 25 Gm/50 Ml Syringe IV PUSH PRN PRN Hypoglycemia Protocol Dicyclomine HCl 20 mg 03/17/21 09:00 03/22/21 09:46 Dicyclomine Hcl 10 Mg Capsule PO 20 mg QID [facility] Administration Glucagon 1 mg 03/17/21 02:02 Glucagon For Inj 1 Mg Vial SUB-Q Q30M PRN Hypoglycemia Glucagon 1 mg 03/17/21 11:23 Glucagon For Inj 1 Mg Vial IM PRN PRN Hypoglycemia Protocol Glucose 15 gm 03/17/21 11:23 Glucose Oral Gel 15 Gm Of Glucse In 37.5 Gm Tube PO PRN PRN
[2021-03-22 11:39] LABS: Glucose Point of Care 157 mg/dl (65-105)
[2021-03-22] MEDS: INSULIN ASPART (*BKC) 100 UNITS/ML SUB-Q ×2 (12:06→16:51)
[2021-03-22] MEDS: hydrALAZINE HCL 25 MG TABLET PO ×2 (12:07→16:41)
[2021-03-22 14:00] VITALS: BP 134/71; PULSE 60; RESP 16; TEMP 36.6; O2SAT 98
--- NOTE | 2021-03-22 15:14 | PM.IMPN ---
Progress Note: A&P Assessment and Plan (1) Acute UTI: Code(s): N39.0 - Urinary tract infection, site not specified Status: Acute Assessment and Plan: Patient presented with generalized weakness and altered mental status. Urine culture growing > 100,000 enterococcus only sensitive to vancomycin. Continue vancomycin (day 3), anticipate 2 more days of IV antibiotics. May benefit from outpatient urology referral as it is documented she has history of multiple UTIs. (2) Lower extremity edema: Code(s): R60.0 - Localized edema Status: Acute Assessment and Plan: Persistent but improved with AMAYA wrap. May be side effect of Norvasc which has been discontinued by Cardiology. (3) Altered mental status: Qualifiers: Altered mental status type: unspecified Qualified Code(s): R41.82 - Altered mental status, unspecified Code(s): R41.82 - Altered mental status, unspecified Status: Resolved Assessment and Plan: Suspect metabolic encephalopathy was related to UTI, now resolved with antibiotic therapy. Other differential includes her pain medication buprenorphine patch was just increased last week, could have contributed to her symptoms. CT brain without acute intracranial findings. (4) PAT (paroxysmal atrial tachycardia): Code(s): I47.1 - Supraventricular tachycardia Status: Acute Assessment and Plan: Patient was seen by cardiology and started on metoprolol tartrate 50 mg BID. Echocardiogram reviewed, no wall motion abnormalities. No chest pain, ACS not suspected. Maintained on her home Eliquis. (5) Chronic kidney disease (CKD) stage G4/A1, severely decreased glomerular filtration rate (GFR) between 15-29 mL/min/1.73 square meter and albuminuria creatinine ratio less than 30 mg/g: Code(s): N18.4 - Chronic kidney disease, stage 4 (severe) Status: Acute Assessment and Plan: Cr 1.7. On review of previous labs she has varying renal function with Cr 1.2 - 2.0. Torsemide and lisinopril currently on hold due to renal function. Continue to monitor renal function, urine output. (6) CAD in [place] artery: Code(s): I25.10 - Atherosclerotic heart disease of [place] coronary artery without angina pectoris Status: Acute Assessment and Plan: Stable, no chest pain. Continue Eliquis, resume her statin therapy. (7) Benign essential hypertension: Code(s): I10 - Essential (primary) hypertension Status: Chronic Assessment and Plan: Stable; last 134/71. Her home amlodipine is discontinued due to leg swelling. Maintained on her home hydralazine 25 mg TID and was started on metoprolol. Monitor BP and adjust treatment as needed. (8) Aortic stenosis: Qualifiers: Cardiac valve disease etiology: etiology unspecified Qualified Code(s): I35.0 - Nonrheumatic aortic (valve) stenosis Code(s): I35.0 - Nonrheumatic aortic (valve) stenosis Status: Chronic Assessment and Plan: Moderate on echocardiogram. She will follow-up with Dr. Winters. (9) Type 2 diabetes mellitus with hyperglycemia, with long-term current use of insulin: Onset Date: ~1979 Code(s): E11.65 - Type 2 diabetes mellitus with hyperglycemia; Z79.4 - equipment [employer] (current) use of insulin Status: Chronic Assessment and Plan: Blood sugars appropriate today. Continue Lantus. Continue to monitor with accu-cheks and adjust treatment as needed, cover with SSI. (10) Multinodular goiter: Code(s): E04.2 - Nontoxic multinodular goiter
[2021-03-22 16:30] LABS: Glucose Point of Care 194 mg/dl (65-105)
[2021-03-22] MEDS: PRAVASTATIN SODIUM 10 MG TABLET PO (18:09)
[2021-03-22 20:40] VITALS: O2SAT 96
[2021-03-22 22:00] VITALS: BP 131/49; PULSE 60; RESP 18; TEMP 36.2; O2SAT 96
[2021-03-23] VITALS (9 sets, daily range): BP systolic 110–157; BP diastolic 42–54; PULSE 52–80; RESP 16–21; TEMP 36.1–36.3; O2SAT 62–97
[2021-03-23 01:01] LABS: Sodium Urine Random 17 meq/L
[2021-03-23] MEDS: INSULIN GLARGINE (*BKC) 100 UNITS/ML SUB-Q ×2 (01:05→20:33)
[2021-03-23] MEDS: LATANOPROST 0.005% OP SOLN 2.5 ML BTL 1 DROP EACH EYE ×2 (01:07→20:33)
[2021-03-23] MEDS: DICYCLOMINE HCL 10 MG CAPSULE 20 MG PO ×5 (01:07→20:33)
[2021-03-23] MEDS: METOPROLOL TARTRATE 50 MG TAB PO ×3 (01:08→20:33)
[2021-03-23 01:22] LABS: Glucose Point of Care 224 mg/dl (65-105)
[2021-03-23] MEDS: ACETAMINOPHEN 500 MG TABLET 1000 MG PO ×2 (06:17→17:58)
[2021-03-23 06:28] LABS: Basophils Percent Auto 0.4 % (0.2-1.2); Eosinophils Absolute Auto 0.3 K/mm3 (0-0.3); Eosinophils Percent Auto 3.2 % (0-4.4); Hematocrit 31.1 % (37.0-47.0); Hemoglobin 9.5 g/dL (12.0-15.0); Immature Granulocyte Absolute 0.04 K/mm3 (0.00-0.031); Immature Granulocyte Percent A 0.5 % (0-0.5); Lymphocytes Absolute Auto 0.95 K/mm3 (0.9-3.2); Lymphocytes Percent Auto 11.6 % (18.3-44.2); Mean Corpuscular HGB Conc 30.5 g/dl (32-36); Mean Corpuscular Volume 88.4 fl (80-100); Mean Platelet Volume 11.1 fl (7.4-10.4); Monocytes Absolute Auto 0.8 K/mm3 (0.1-0.6); Monocytes Percent Auto 9.4 % (2.6-8.5); Neutrophils Absolute Auto 6.2 K/mm3 (1.3-6.7); Neutrophils Percent Auto 74.9 % (45.5-73.1); Platelet Count Result 254 k/mm3 (150-375); Red Blood Count 3.52 M/mm3 (4.2-5.4); Red Cell Distribution Width 15.7 % (11.5-14.5); White Blood Count 8.2 K/mm3 (4.5-10.0)
[2021-03-23 06:35] LABS: Anion Gap 5 mmol/L (8-16); Blood Urea Nitrogen 56 mg/dL (7-17); Calcium 9.4 mg/dL (8.4-10.2); Carbon Dioxide 28 mmol/L (22-30); Chloride 104 mmol/L (98-107); Estimated CRCL calculation 20 ml/min; Estimated Glomerular Filt Rate 31; Glucose 186 mg/dL (65-105); Magnesium 2.3 mg/dL (1.6-2.3); Potassium 4.3 mmol/L (3.4-5.0); Sodium 137 mmol/L (137-145)
--- NOTE | 2021-03-23 07:37 | PM.PNCARD ---
Progress Note: A&P Assessment and Plan (1) Acute UTI: Code(s): N39.0 - Urinary tract infection, site not specified Status: Acute Assessment and Plan: On antibiotics as per hospitalist. (2) PAT (paroxysmal atrial tachycardia): Code(s): I47.1 - Supraventricular tachycardia Status: Acute Assessment and Plan: Started Metoprolol Tartate 50 mg PO BID to suppress PAC's and decrease burden of PAT. She is tolerating it well with slowest HR 49 bpm overnight and no more PAT. Will sign off. Please call with any questions. (3) Elevated troponin: Code(s): R77.8 - Other specified abnormalities of plasma proteins Status: Acute Assessment and Plan: Doubt ACS as no symptomatology to suggest it. This could be due to UTI, CKD, hypertension and aortic stenosis and diastolic dysfunction. Echo shows no wall motion abnormality with normal EF, mod , diastolic dysfunction. (4) Bilateral lower extremity edema: Code(s): R60.0 - Localized edema Status: Acute Assessment and Plan: Could be contributed from side effect of Amlodipine. Decrease Amlodipine 2.5 mg daily and increase Hydralazine dose as needed. Due to edema of legs and small pleural effusions, resumed Torsemide 20 mg daily for a few days. Torsemide is on hold due to worsening kidney function to Cr 2.0 which improved to 1.6. Her Cr last year was up to 2.1 on 03/25/20. (5) Aortic stenosis: Qualifiers: Cardiac valve disease etiology: etiology unspecified Qualified Code(s): I35.0 - Nonrheumatic aortic (valve) stenosis Code(s): I35.0 - Nonrheumatic aortic (valve) stenosis Status: Chronic Assessment and Plan: Stable and moderate . (6) Benign essential hypertension: Code(s): I10 - Essential (primary) hypertension Status: Chronic Assessment and Plan: Stable. Lisinopril is on hold due to worsening kidney function, probably from diuresis and she may not need Lisinopril if BP continues to be stable. Stopped Amlodipine 2.5 mg daily completely due to pedal edema. (7) CAD in [place] artery: Code(s): I25.10 - Atherosclerotic heart disease of [place] coronary artery without angina pectoris Status: Acute Assessment and Plan: Stable. Subjective Date/time seen: 03/23/21 07:37 She feels better today, not shaky like she was yesterday morning. No chest pain or sob. Chronic back pain. Exam Const: General: cooperative, healthy appearing and comfortable Resp: Auscultation: clear to auscultation bilaterally, no crackles, no rales, no rhonchi and no wheezes Cardio: Jugular venous distension: no JVD Rate: regular rate Rhythm: regular rhythm Heart sounds: Murmur heart sound present (III/ systolic murmur RICS) Peripheral pulses: dorsalis pedis present GI: GI Palp: No abdominal tenderness and Yes Soft to palpation Neuro: General: oriented to person, oriented to place and oriented to time Extrem: Right lower extremity: edema Left lower extremity: edema Other: Mild pedal edema bilaterally Objective Data Vital Signs Vital Signs: Vital Signs - 24 hr 03/22/21 09:45 03/22/21 14:00 03/22/21 20:40 Temperature 98 F Pulse Rate 61 60 Respiratory Rate 16 Blood Pressure 147/47 H 134/71 Pulse Oximetry 98 96 03/22/21 22:00 03/23/21 01:08 03/23/21 06:00 Temperature 97.1 F L 97.0 F L Pulse Rate 60 80 52 L Respiratory Rate 18 18 Blood Pressure 131/49 L 157/47 H Pulse Oximetry 96 97 Intake/Output Intake/Output: Intake & Output 03/20/21 03/21/21 03/22/21 03/23/21 23:59 23:59 23:59 23:59 Intake Total 1930 1570 1090 400 Output Total 450 200 Balance 1930 1570 640 200 Meds/Results Medications: Active Medications Generic Name Dose Route Start Last Admin Trade Name Freq PRN Reason Stop Dose Admin Acetaminophen 1,000 mg 03/17/21 02:02 03/23/21 06:17 Acetaminophen 500 Mg Tablet PO 1,000 mg Q6H PRN Administration Pain (Scale
[2021-03-23 08:07] LABS: Glucose Point of Care 187 mg/dl (65-105)
[2021-03-23] MEDS: PANTOPRAZOLE 40 MG TABLET PO (08:57)
[2021-03-23] MEDS: hydrALAZINE HCL 25 MG TABLET PO ×3 (08:57→17:58)
[2021-03-23] MEDS: APIXABAN 2.5 MG TABLET PO ×2 (08:57→17:58)
[2021-03-23] MEDS: ACIDOPHILUS/BULGARICUS CHEWABLE TABLET 2 TABLET PO (08:57)
[2021-03-23] MEDS: SERTRALINE HCL 25 MG TABLET 75 MG PO (08:59)
[2021-03-23 11:41] LABS: Glucose Point of Care 277 mg/dl (65-105)
[2021-03-23] MEDS: INSULIN ASPART (*BKC) 100 UNITS/ML SUB-Q (12:06)
[2021-03-23 13:08] LABS: Glucose Point of Care 196 mg/dl (65-105)
[2021-03-23] MEDS: TORSEMIDE 20 MG TABLET PO (13:18)
--- NOTE | 2021-03-23 16:24 | PM.IMPN ---
Progress Note: A&P Assessment and Plan (1) Acute UTI: Code(s): N39.0 - Urinary tract infection, site not specified Status: Acute Assessment and Plan: Patient presented with generalized weakness and altered mental status. Urine culture growing > 100,000 enterococcus only sensitive to vancomycin. Continue vancomycin (day 4), anticipate 2 more days of IV antibiotics and possible dc Sunday. May benefit from outpatient urology referral as it is documented she has history of multiple UTIs. (2) Lower extremity edema: Code(s): R60.0 - Localized edema Status: Acute Assessment and Plan: Persistent but improved with AMAYA wrap. May be side effect of Norvasc which has been discontinued by Cardiology. (3) Altered mental status: Qualifiers: Altered mental status type: unspecified Qualified Code(s): R41.82 - Altered mental status, unspecified Code(s): R41.82 - Altered mental status, unspecified Status: Resolved Assessment and Plan: Suspect metabolic encephalopathy was related to UTI, now resolved with antibiotic therapy. Other differential includes her pain medication buprenorphine patch was just increased last week, could have contributed to her symptoms. CT brain without acute intracranial findings. (4) PAT (paroxysmal atrial tachycardia): Code(s): I47.1 - Supraventricular tachycardia Status: Acute Assessment and Plan: Patient was seen by cardiology and started on metoprolol tartrate 50 mg BID. Echocardiogram reviewed, no wall motion abnormalities. No chest pain, ACS not suspected. Maintained on her home Eliquis. (5) Chronic kidney disease (CKD) stage G4/A1, severely decreased glomerular filtration rate (GFR) between 15-29 mL/min/1.73 square meter and albuminuria creatinine ratio less than 30 mg/g: Code(s): N18.4 - Chronic kidney disease, stage 4 (severe) Status: Acute Assessment and Plan: Cr 1.6, stable. On review of previous labs she has varying renal function with Cr 1.2 - 2.0. Resume toresemide for today. Lisinopril currently on hold due to renal function. Continue to monitor renal function, urine output. (6) CAD in [place] artery: Code(s): I25.10 - Atherosclerotic heart disease of [place] coronary artery without angina pectoris Status: Acute Assessment and Plan: Stable, no chest pain. Continue Eliquis, resume her statin therapy. (7) Benign essential hypertension: Code(s): I10 - Essential (primary) hypertension Status: Chronic Assessment and Plan: BPs reviewed, variable - last 110/54. Her home amlodipine is discontinued due to leg swelling. Maintained on her home hydralazine 25 mg TID and was started on metoprolol. Monitor BP and adjust treatment as needed. (8) Aortic stenosis: Qualifiers: Cardiac valve disease etiology: etiology unspecified Qualified Code(s): I35.0 - Nonrheumatic aortic (valve) stenosis Code(s): I35.0 - Nonrheumatic aortic (valve) stenosis Status: Chronic Assessment and Plan: Moderate on echocardiogram. She will follow-up with Dr. Winters. (9) Type 2 diabetes mellitus with hyperglycemia, with long-term current use of insulin: Onset Date: ~1979 Code(s): E11.65 - Type 2 diabetes mellitus with hyperglycemia; Z79.4 - terminal [place] (current) use of insulin Status: Chronic Assessment and Plan: Blood sugars appropriate today. Continue Lantus. Continue to monitor with accu-cheks and adjust treatment as needed, cover with SSI. (10) Multinodular
[2021-03-23 17:10] LABS: Glucose Point of Care 119 mg/dl (65-105)
[2021-03-23] MEDS: PRAVASTATIN SODIUM 10 MG TABLET PO (17:58)
[2021-03-23 20:55] LABS: Glucose Point of Care 219 mg/dl (65-105)
[2021-03-24] VITALS (7 sets, daily range): BP systolic 130–171; BP diastolic 47–54; PULSE 59–73; RESP 16; TEMP 36.1–36.4; O2SAT 90–100
[2021-03-24 04:53] LABS: Glucose Point of Care 195 mg/dl (65-105)
[2021-03-24] MEDS: ACETAMINOPHEN 500 MG TABLET 1000 MG PO ×3 (05:56→21:10)
[2021-03-24 08:42] LABS: Glucose Point of Care 149 mg/dl (65-105)
--- NOTE | 2021-03-24 09:57 | WPDNEUROPN ---
Progress Note: A&P Additional Plan generalized weakness of multifactorial in nature without evidence of any scan abnormalities treatment will be supportive and medical Review of Systems Review of Systems: All systems reviewed & are unremarkable except as noted in HPI and below Exam Const: General: cooperative, alert, awake, in distress and anxious Nutritional Appearance: average body habitus Limitations: physical limitations HENMT: Head: normal to inspection Ears: hearing grossly normal bilaterally General nose exam: Normal external nose present Face and sinus: normal facial exam Mouth: Yes Normal oral and palatal mucosa present Eyes: General: appearance normal, both eyes and all related structures Visual Green: normal visual green by confrontation Neck: Neck: full ROM Resp: Effort & Inspection: able to speak in complete sentences and decreased respiratory effort Auscultation: clear to auscultation bilaterally Cardio: Rate: regular rate Rhythm: regular rhythm GI: Auscultation: normal bowel sounds Neuro: General: oriented to person and oriented to place Cranial nerves: Yes CN's II-XII intact bilaterally Cognition (Neuro): normal cognition Speech: normal speech Gait exam (Neuro): Unable to assess gait Motor exam (neuro): Abnormal motor strength present Sensory Exam: Sensory deficit (Neuro) Deep tendon reflexes (DTR's): Right triceps reflex intensity grade: 1+, Left triceps reflex intensity grade: 1+, Rt Biceps (C5, C6): 1+, Left biceps reflex intensity grade: 1+, Right brachioradialis reflex intensity grade: 1+, Left brachioradialis reflex intensity grade: 1+, Right patellar reflex intensity grade: 1+, Left patellar reflex intensity grade: 1+, Right ankle reflex intensity grade: 1+ and Left ankle reflex intensity grade: 1+ Plantar Reflex Responses: downgoing: bilateral Psych: Appearance: grossly normal Speech and movement: Normal speech and movement present Affect: Sad affect present Attitude: cooperative Thought process: Normal thought process present Thought content: Yes Normal thought content present Insight: Fair insight present (Psych) Judgement: Fair judgement present (Psych) Objective Data Vital Signs Vital Signs: Vital Signs - 24 hr 03/23/21 14:00 03/23/21 20:00 03/23/21 20:33 Temperature 36.3 C L Pulse Rate 60 62 76 Respiratory Rate 21 H 16 Blood Pressure 110/54 L Pulse Oximetry 97 62 L 03/23/21 21:44 03/23/21 23:10 03/24/21 05:28 Temperature 36.1 C L 36.1 C L Pulse Rate 62 59 L Respiratory Rate 16 16 Blood Pressure 112/42 L 160/47 H Pulse Oximetry 97 62 L 100 Intake/Output Intake/Output: Intake & Output 03/21/21 03/22/21 03/23/21 03/24/21 23:59 23:59 23:59 23:59 Intake Total 1570 1090 1220 340 Output Total 450 200 Balance 0663 776 0265 340 Meds/Results Medications: Active Medications Generic Name Dose Route Start Last Admin Trade Name Freq PRN Reason Stop Dose Admin Acetaminophen 1,000 mg 03/17/21 02:02 03/24/21 05:56 Acetaminophen 500 Mg Tablet PO 1,000 mg Q6H PRN Administration Pain (Scale Score 1-3) Hydrocodone Bitart/Acetaminophen 1 tab 03/16/21 18:02 Hydrocodone/Acetaminophen (*Crx) 5-325 Mg Tablet PO Q4H PRN Pain Rated 4-6 Apixaban 2.5 mg 03/20/21 09:00 03/23/21 17:58 Apixaban 2.5 Mg Tablet PO 2.5 mg BID [facility] Administration Artificial Tears 2 drop 03/17/21 09:00 03/23/21 17:59 Artificial Tears Op Soln 15 Ml Bottle EACH EYE 04/16/21 09:01 2 drop BID [facility] Administration Dextrose 12.5 gm 03/17/21 11:23 Dextrose 50% 25 Gm/50 Ml Syringe IV PUSH PRN PRN Hypoglycemia Protocol Dicyclomine HCl 20 mg 03/17/21 09:00 03/23/21 20:33 Dicyclomine Hcl 10 Mg Capsule PO 20 mg QID [facility] Administration Glucagon 1 mg 03/17/21 02:02 Glucagon For Inj 1 Mg Vial SUB-Q Q30M PRN Hypoglycemia Glucagon 1 mg 03/17/21 11:23 Glucagon For Inj 1 Mg Vial IM PRN PRN
[2021-03-24] MEDS: hydrALAZINE HCL 25 MG TABLET PO ×3 (10:00→17:17)
[2021-03-24] MEDS: APIXABAN 2.5 MG TABLET PO ×2 (10:01→17:16)
[2021-03-24] MEDS: DICYCLOMINE HCL 10 MG CAPSULE 20 MG PO ×4 (10:01→21:10)
[2021-03-24] MEDS: ACIDOPHILUS/BULGARICUS CHEWABLE TABLET 2 TABLET PO (10:01)
[2021-03-24] MEDS: METOPROLOL TARTRATE 50 MG TAB PO ×2 (10:02→21:11)
[2021-03-24] MEDS: TORSEMIDE 20 MG TABLET PO (10:02)
[2021-03-24] MEDS: SERTRALINE HCL 25 MG TABLET 75 MG PO (10:02)
[2021-03-24] MEDS: PANTOPRAZOLE 40 MG TABLET PO (10:02)
[2021-03-24 10:31] LABS: Vancomycin Trough 9.5 ug/mL (10.0-20.0)
[2021-03-24 11:36] LABS: Anion Gap 6 mmol/L (8-16); Blood Urea Nitrogen 60 mg/dL (7-17); Calcium 9.7 mg/dL (8.4-10.2); Carbon Dioxide 29 mmol/L (22-30); Chloride 103 mmol/L (98-107); Estimated CRCL calculation 18 ml/min; Estimated Glomerular Filt Rate 27; Glucose 219 mg/dL (65-105); Sodium 138 mmol/L (137-145)
--- NOTE | 2021-03-24 11:36 | PCNWS ---
Weekly nutritional screen. Patient is tolerating current diet with adequate intake. No weight loss reported. No nutritional needs at this time.
[2021-03-24] MEDS: INSULIN ASPART (*BKC) 100 UNITS/ML SUB-Q (12:02)
[2021-03-24 12:31] LABS: Glucose Point of Care 234 mg/dl (65-105)
--- NOTE | 2021-03-24 12:43 | PM.IMPN ---
Progress Note: A&P Assessment and Plan (1) Acute UTI: Code(s): N39.0 - Urinary tract infection, site not specified Status: Acute Assessment and Plan: Patient presented with generalized weakness and altered mental status. Urine culture growing > 100,000 enterococcus only sensitive to vancomycin. Continue vancomycin (day 5), anticipate discharge tomorrow. May benefit from outpatient urology referral as it is documented she has history of multiple UTIs. (2) Lower extremity edema: Code(s): R60.0 - Localized edema Status: Acute Assessment and Plan: Persistent but improved with AMAYA wrap. May be side effect of Norvasc which has been discontinued by Cardiology. (3) Altered mental status: Qualifiers: Altered mental status type: unspecified Qualified Code(s): R41.82 - Altered mental status, unspecified Code(s): R41.82 - Altered mental status, unspecified Status: Resolved Assessment and Plan: Suspect metabolic encephalopathy was related to UTI, now resolved with antibiotic therapy. Other differential includes her pain medication buprenorphine patch was just increased last week, could have contributed to her symptoms. CT brain without acute intracranial findings. (4) PAT (paroxysmal atrial tachycardia): Code(s): I47.1 - Supraventricular tachycardia Status: Acute Assessment and Plan: Patient was seen by cardiology and started on metoprolol tartrate 50 mg BID. Echocardiogram reviewed, no wall motion abnormalities. No chest pain, ACS not suspected. Maintained on her home Eliquis. (5) Chronic kidney disease (CKD) stage G4/A1, severely decreased glomerular filtration rate (GFR) between 15-29 mL/min/1.73 square meter and albuminuria creatinine ratio less than 30 mg/g: Code(s): N18.4 - Chronic kidney disease, stage 4 (severe) Status: Acute Assessment and Plan: Cr stable. On review of previous labs she has varying renal function with Cr 1.2 - 2.0. Resume toresemide for now. Lisinopril currently on hold due to renal function. Continue to monitor renal function, urine output. (6) CAD in [place] artery: Code(s): I25.10 - Atherosclerotic heart disease of [place] coronary artery without angina pectoris Status: Acute Assessment and Plan: Stable, no chest pain. Continue Eliquis, resume her statin therapy. (7) Benign essential hypertension: Code(s): I10 - Essential (primary) hypertension Status: Chronic Assessment and Plan: BPs reviewed, variable. Her home amlodipine is discontinued due to leg swelling. Maintained on her home hydralazine 25 mg TID and was started on metoprolol. Monitor BP and adjust treatment as needed. (8) Aortic stenosis: Qualifiers: Cardiac valve disease etiology: etiology unspecified Qualified Code(s): I35.0 - Nonrheumatic aortic (valve) stenosis Code(s): I35.0 - Nonrheumatic aortic (valve) stenosis Status: Chronic Assessment and Plan: Moderate on echocardiogram. She will follow-up with Dr. Winters. 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 Continue to monitor with accu-cheks and adjust treatment as needed, cover with SSI. (10) Multinodular goiter: Code(s): E04.2 - Nontoxic multinodular goiter Status: Acute
--- NOTE | 2021-03-24 13:37 | PC.NURSE ---
Patient's family to bring in pain patch for patient today but unable to get it from [place] because patient is not currently in their facility. Spoke with Tasha in our pharmacy and she states it is nonformulary. Notified daughter and she is taking script to [facility] and will bring the medication patch in later.
[2021-03-24 16:34] LABS: Glucose Point of Care 151 mg/dl (65-105)
[2021-03-24] MEDS: PRAVASTATIN SODIUM 10 MG TABLET PO (17:17)
--- NOTE | 2021-03-24 19:49 | PC.NURSE ---
Pain patch from home unable to be brought in. [place] couldn't release it to the family due to it being a controlled substance. Daughter unable to find it at any local pharmacy. Decision made by daughter and patient to have [facility] patch when patient arrives back at facility tomorrow. Spoke with Trista FLETCHER about this earlier today and let her know that the daughter was attempting to get it. Family has requested that patient receive a [place] 1 hour prior to transport tomorrow. I relayed this information to the night nurse who will relay it to the day nurse tomorrow.
[2021-03-24] MEDS: LATANOPROST 0.005% OP SOLN 2.5 ML BTL 1 DROP EACH EYE (21:11)
[2021-03-24] MEDS: INSULIN GLARGINE (*BKC) 100 UNITS/ML SUB-Q (21:11)
[2021-03-24 21:31] LABS: Glucose Point of Care 227 mg/dl (65-105)
[2021-03-25 06:00] VITALS: BP 179/59; PULSE 56; RESP 16; TEMP 36.4; O2SAT 98
[2021-03-25 08:01] LABS: Glucose Point of Care 130 mg/dl (65-105)
--- NOTE | 2021-03-25 08:10 | PM.DS ---
DS: Admitting Diagnosis Admitting Diagnosis Admitting Diagnosis: UTI DS: Discharge Diagnosis Discharge Diagnosis (1) Acute UTI: Code(s): N39.0 - Urinary tract infection, site not specified Status: Acute Assessment and Plan: Date of Admission 03/16/21 Date of Discharge 03/25/21 Ms. Webster is a pleasant 86yo F who presented to the ED with generalized weakness and altered mental status. Urine culture growing > 100,000 enterococcus only sensitive to vancomycin. She was treated with 5 days of IV vancomycin prior to discharge. May benefit from outpatient urology referral as it is documented she has history of multiple UTIs. She worked with PT/OT and is felt to be a good candidate to continue therapy at SNF at her facility. She is hemodynamically stable for discharge to SNF 03/25/21. Follow up with her cafe helper, Dr Winters, in 1 to 2 weeks. (2) Lower extremity edema: Code(s): R60.0 - Localized edema Status: Acute Assessment and Plan: Persistent but improved with AMAYA wrap. May be side effect of Norvasc which has been discontinued by Cardiology. (3) Altered mental status: Qualifiers: Altered mental status type: unspecified Qualified Code(s): R41.82 - Altered mental status, unspecified Code(s): R41.82 - Altered mental status, unspecified Status: Resolved Assessment and Plan: Resolved; back at her cognitive baseline per family. Suspect metabolic encephalopathy was related to UTI, now resolved with antibiotic therapy. Other differential includes her pain medication buprenorphine patch was just increased last week, could have contributed to her symptoms. CT brain without acute intracranial findings. (4) PAT (paroxysmal atrial tachycardia): Code(s): I47.1 - Supraventricular tachycardia Status: Acute Assessment and Plan: Patient was seen by cardiology and started on metoprolol tartrate 50 mg BID. Echocardiogram reviewed, no wall motion abnormalities. No chest pain, ACS not suspected. Maintained on her home Eliquis. (5) Chronic kidney disease (CKD) stage G4/A1, severely decreased glomerular filtration rate (GFR) between 15-29 mL/min/1.73 square meter and albuminuria creatinine ratio less than 30 mg/g: Code(s): N18.4 - Chronic kidney disease, stage 4 (severe) Status: Acute Assessment and Plan: Cr stable. On review of previous labs she has varying renal function with Cr 1.2 - 2.0. (6) CAD in [place] artery: Code(s): I25.10 - Atherosclerotic heart disease of [place] coronary artery without angina pectoris Status: Acute Assessment and Plan: Stable, no chest pain. Continue Eliquis, statin therapy. (7) Benign essential hypertension: Code(s): I10 - Essential (primary) hypertension Status: Chronic Assessment and Plan: BPs reviewed, variable. Her home amlodipine is discontinued due to leg swelling. Maintained on her home hydralazine 25 mg TID and was started on metoprolol. (8) Aortic stenosis: Qualifiers: Cardiac valve disease etiology: etiology unspecified Qualified Code(s): I35.0 - Nonrheumatic aortic (valve) stenosis Code(s): I35.0 - Nonrheumatic aortic (valve) stenosis Status: Chronic Assessment and Plan: Moderate on echocardiogram. She will follow-up with Dr. Winters. (9) Type 2 diabetes mellitus with hyperglycemia, with long-term current use of insulin: Onset Date: ~1979 Code(s): E11.65 - Type 2 diabetes mellitus with hyperglycemia; Z79.4 - terminal make up operator (current) use of insulin Status: Chronic Asse
[2021-03-25 08:54] VITALS: PULSE 65
[2021-03-25] MEDS: METOPROLOL TARTRATE 50 MG TAB PO (08:54)
[2021-03-25] MEDS: hydrALAZINE HCL 25 MG TABLET PO ×2 (08:55→12:38)
[2021-03-25] MEDS: ACIDOPHILUS/BULGARICUS CHEWABLE TABLET 2 TABLET PO (08:55)
[2021-03-25] MEDS: APIXABAN 2.5 MG TABLET PO (08:55)
[2021-03-25] MEDS: PANTOPRAZOLE 40 MG TABLET PO (08:55)
[2021-03-25] MEDS: TORSEMIDE 20 MG TABLET PO (08:55)
[2021-03-25] MEDS: SERTRALINE HCL 25 MG TABLET 75 MG PO (08:55)
[2021-03-25] MEDS: ALPRAZolam (*CRX) 0.25 MG TABLET PO (08:56)
[2021-03-25] MEDS: DICYCLOMINE HCL 10 MG CAPSULE 20 MG PO (08:56)
[2021-03-25] MEDS: ACETAMINOPHEN 500 MG TABLET 1000 MG PO (09:14)
[2021-03-25] MEDS: SACCHAROMYCES BOULARDII 250 MG CAPSULE PO (09:14)
--- NOTE | 2021-03-25 09:16 | PCPTNOTE ---
Attempted to see patient in AM for PT treatment, however patient refused at this time. Patient states I need to eat breakfast first and get dressed. Patient asked why there was a man in her bathroom. There was no one present in the room. Patient appeared slightly confused at this time. RN informed. Clarisa Solano, TOWER HELPER
[2021-03-25 12:38] LABS: Glucose Point of Care 217 mg/dl (65-105)
[2021-03-25] MEDS: INSULIN ASPART (*BKC) 100 UNITS/ML SUB-Q (12:38)
[2021-03-25] MEDS: lisinopriL 20 MG TABLET PO (12:38)
== END 2021-03-25 13:45 | DRG 689 ==
LOC: ANHED 18:40 → ANH2MED 19:11
PROVIDERS: Internal Medicine Cardiovascular Disease; Physician Assistant; Admitting Provider Family Medicine; Emergency Provider Emergency Medicine; PCP Family Medicine; Visit Provider Physician Assistant
DX: N39.0 Urinary tract infection, site not specified (principal); G93.41 Metabolic encephalopathy; I47.1 Supraventricular tachycardia; N18.4 Chronic kidney disease, stage 4 (severe); Z16.24 Resistance to multiple antibiotics; B95.2 Enterococcus as the cause of diseases classified elsewhere; I48.0 Paroxysmal atrial fibrillation; I25.10 Atherosclerotic heart disease of native coronary artery without angina pectoris; I12.9 Hypertensive chronic kidney disease with stage 1 through stage 4 chronic kidney disease, or unspecified chronic kidney disease; E11.22 Type 2 diabetes mellitus with diabetic chronic kidney disease; E11.65 Type 2 diabetes mellitus with hyperglycemia; E04.2 Nontoxic multinodular goiter; D22.9 Melanocytic nevi, unspecified; E11.42 Type 2 diabetes mellitus with diabetic polyneuropathy; M81.0 Age-related osteoporosis without current pathological fracture; E78.2 Mixed hyperlipidemia; I35.0 Nonrheumatic aortic (valve) stenosis; N39.490 Overflow incontinence; Z79.4 Long term (current) use of insulin; Z86.711 Personal history of pulmonary embolism; Z85.3 Personal history of malignant neoplasm of breast; Z79.01 Long term (current) use of anticoagulants
CPT/HCPCS: 36415; 51701; 70450; 71046; 72148; 76775; 80048; 80069; 80076; 80202; 81001; 81002; 81050; 82570; 82607; 82728; 82746; 82948; 83540; 83550; 83735; 83880; 84100; 84156; 84295; 84300; 84443; 84466; 84484; 85025; 85027; 86140; 87077; 87086; 87088; 87186; 93005; 93306; 96361; 96365; 96375; 97110; 97161; 97165; 97530; 97535; 99285; A9270; G0378; J0290; J0696; J1815; J2405; J3370; J7040

== ENCOUNTER 2021-05-06 22:04 | Emergency (ER) | payer MEDICARE, SELFPAY ==
[2021-05-06 22:07] VITALS: BP 153/63; PULSE 64; RESP 16; TEMP 37.1; O2SAT 98
--- NOTE | 2021-05-06 22:21 | ED.RECABL ---
HPI - Recheck/Abnormal Lab/Rx General Chief Complaint: Recheck/Abnormal Lab/Rx Stated Complaint: abnormal labs Time Seen by Provider: 05/06/21 22:07 History of Present Illness HPI narrative: 86 yo female brought in from alf for elevated BUN and creatinine. She has a h/o CKD and values provided do not seem to be out the normal range for her. She denies any acute complaint. She does report diarrhea for more than 1 month that she reports they have not been able to figure out. Related Data Home Medications Medication Instructions Recorded Confirmed polyethylene glycol 3350 [Miralax] 17 g PO DAILY PRN 08/15/20 03/16/21 torsemide 20 mg PO DAILY 08/15/20 03/16/21 insulin lispro 100 unit/mL See Rx Instructions .ROUTE .COMPLEX 09/29/20 03/16/21 subcutaneous pen omeprazole 20 mg capsule,delayed 20 mg PO DAILY cap 11/05/20 03/16/21 release Basaglar KwikPen U-100 Insulin 7 unit SUBCUT DAILY 11/23/20 03/16/21 Systane (PF) 2 drp EACH EYE BID 03/16/21 03/16/21 acetaminophen 1,000 mg PO Q6H PRN 03/16/21 03/16/21 acidophilus-pectin, citrus 2 cap PO DAILY 03/16/21 03/16/21 buprenorphine 1 patch TRANSDERMAL Q7D 03/16/21 03/16/21 dicyclomine 20 mg PO QID 03/16/21 03/16/21 diphenhydramine HCl [Banophen] 25 mg PO BID PRN 03/16/21 03/16/21 docusate sodium 100 mg PO Q12HR PRN 03/16/21 03/16/21 glucagon 1 mg SUBCUT Q30M PRN 03/16/21 03/16/21 latanoprost 1 drp EACH EYE DAILY 03/16/21 03/16/21 sertraline 75 mg PO DAILY 03/16/21 03/16/21 Allergies Allergy/AdvReac Type Severity Reaction Status Date / Time ciprofloxacin Allergy Unknown Anxiety Verified 03/16/21 22:11 dexamethasone Allergy Unknown Anxiety Verified 03/16/21 22:11 hydrochlorothiazide Allergy Unknown Anxiety Verified 03/16/21 22:11 triamterene Allergy Unknown Anxiety Verified 03/16/21 22:11 tramadol Allergy Unknown Verified 03/16/21 22:11 Review of Systems Review of Systems: All systems reviewed & are unremarkable except as noted in HPI and below Constitutional: Constitutional: Denies chills and Denies fever(s) ENT: Reports system reviewed and no additional complaints, except as documented Cardiovascular: Cardiovascular: Denies chest pain Respiratory: Respiratory: Denies dyspnea Gastrointestinal: Gastrointestinal: Denies abdominal pain, Reports diarrhea, Denies nausea and Denies vomiting Genitourinary: Genitourinary: Denies hematuria and Denies dysuria Musculoskeletal: Musculoskeletal: Denies back pain Neurologic: Denies confusion and Denies weakness [facility] Past Medical History Medical History Aortic stenosis Benign essential hypertension Burst fracture of lumbar vertebra with routine healing CAD in [place] artery Heart murmur History of breast cancer Hx of Crohn's disease Lumbar pain with radiation down right leg Mixed hyperlipidemia Nonrheumatic aortic (valve) stenosis Osteoporosis Overflow incontinence Peripheral neuropathy Post menopausal problems Pulmonary embolism Type 2 diabetes mellitus with diabetic polyneuropathy Type 2 diabetes mellitus with hyperglycemia, with long-term current use of insulin (~1979) Surgical History Surgical History History of vertebroplasty (~10/07/20) L1 burst fracture - Dr Rosario at [place] Family History Family History Grandparent Diabetes mellitus Father Hypertension Cerebrovascular accident Mother Family history of arthritis Acute myocardial infarction, Onset Age: 84 Other Family history of hearing loss Family history of osteoporosis Social History Social History Smoking status: Never smoker Second hand tobacco smoke exposure: No Alcohol intake: unknown Drinks per week: 1 Substance use: never Substance use type: does not use Gender identity (if verbalized
[2021-05-06 23:21] VITALS: O2SAT 96
[2021-05-06 23:30] VITALS: O2SAT 97
[2021-05-06] MEDS: SODIUM CHLORIDE 0.9% IV 500 ML 999 ML IV CONT (23:33)
[2021-05-06 23:43] LABS: Add Urine Microscopic? YES; Appearance Urine Clear (Clear); Bilirubin Urine Negative (Negative); Blood Urine Negative (Negative); Color Urine Yellow (Yellow); Glucose Urine UA Negative (Negative); Ketones Urine Negative (Negative); Leukocyte Esterase Ur 3+ LEU/UL (Negative); Mucus Urine Rare /lpf; Nitrate Urine Negative (Negative); Protein Urine Negative (Negative); RBC Urine 0-2 /hpf (0-2); Specific Grav Ur 1.012 (1.001-1.035); Squamous Epithelial Cell Urine Rare /hpf (Few); Urobilinogen Urine Negative mg/dL (<2.0); WBC Clumps Urine Present /HPF; WBC Urine 51-75 /hpf
[2021-05-06 23:45] VITALS: PULSE 60; RESP 21; O2SAT 97
[2021-05-06 23:52] LABS: Basophils Percent Auto 0.4 % (0.2-1.2); Eosinophils Absolute Auto 0.3 K/mm3 (0-0.3); Hematocrit 34.1 % (37.0-47.0); Hemoglobin 10.4 g/dL (12.0-15.0); Immature Granulocyte Absolute 0.04 K/mm3 (0.00-0.031); Immature Granulocyte Percent A 0.5 % (0-0.5); Lymphocytes Percent Auto 12.4 % (18.3-44.2); Mean Corpuscular HGB Conc 30.5 g/dl (32-36); Mean Corpuscular Hemoglobin 27.7 pg (26-34); Mean Corpuscular Volume 90.7 fl (80-100); Mean Platelet Volume 10.6 fl (7.4-10.4); Monocytes Absolute Auto 0.8 K/mm3 (0.1-0.6); Neutrophils Absolute Auto 5.9 K/mm3 (1.3-6.7); Neutrophils Percent Auto 72.7 % (45.5-73.1); Platelet Count Result 218 k/mm3 (150-375); Red Blood Count 3.76 M/mm3 (4.2-5.4); Red Cell Distribution Width 15.6 % (11.5-14.5); White Blood Count 8.1 K/mm3 (4.5-10.0)
[2021-05-07] VITALS (7 sets, daily range): BP systolic 150–157; BP diastolic 58–60; PULSE 58–62; RESP 17–23; O2SAT 96–99
[2021-05-07 00:03] LABS: Alanine Aminotransferase 10 U/L (4-35); Albumin Level 3.2 g/dL (3.5-5.1); Alkaline Phosphatase 92 U/L (38-126); Anion Gap 8 mmol/L (8-16); Aspartate Amino Transferase 19 U/L (14-36); Bilirubin,Total 0.1 mg/dL (0.2-1.3); Blood Urea Nitrogen 61 mg/dL (7-17); Calcium 9.4 mg/dL (8.4-10.2); Carbon Dioxide 22 mmol/L (22-30); Chloride 106 mmol/L (98-107); Estimated Glomerular Filt Rate 31; Glucose 136 mg/dL (65-110); Lipase 35 U/L (23-300); Potassium 5.2 mmol/L (3.4-5.0); Sodium 136 mmol/L (137-145)
== END 2021-05-07 01:45 ==
PROVIDERS: Emergency Provider Emergency Medicine; PCP Family Medicine
DX: N39.0 Urinary tract infection, site not specified (principal); E11.22 Type 2 diabetes mellitus with diabetic chronic kidney disease; I12.9 Hypertensive chronic kidney disease with stage 1 through stage 4 chronic kidney disease, or unspecified chronic kidney disease; N18.9 Chronic kidney disease, unspecified; I35.0 Nonrheumatic aortic (valve) stenosis; I25.10 Atherosclerotic heart disease of native coronary artery without angina pectoris; Z85.3 Personal history of malignant neoplasm of breast; K50.90 Crohn's disease, unspecified, without complications; E78.2 Mixed hyperlipidemia; M81.0 Age-related osteoporosis without current pathological fracture; N39.490 Overflow incontinence; E11.42 Type 2 diabetes mellitus with diabetic polyneuropathy; Z79.4 Long term (current) use of insulin
CPT/HCPCS: 36415; 51701; 80053; 81001; 83690; 85025; 87086; 96361; 96365; 99284; J0696; J7040

== ENCOUNTER 2021-07-09 13:13 | Emergency (ER) | payer MEDICARE, SELFPAY ==
--- NOTE | ~2021-07-09 | XR_ITS ---
XR knee LT 3V 07/09/2021 13:28 Indication: Knee pain after fall Procedure: 3 views left knee Comparison: No prior studies for comparison. Findings: There is moderate osteoarthritis of the left knee. Osteopenia. Small joint effusion. No acu te fracture or traumatic malalignment. There is chondrocalcinosis. Impression: 1: No acute fracture. Reviewed, dictated and finalized at location A. Impression: 1: No acute fracture.
[2021-07-09 13:04] VITALS: BP 161/61; PULSE 61; RESP 20; TEMP 36.8; O2SAT 100
--- NOTE | 2021-07-09 13:25 | ED.GENADULT ---
HPI - General Adult General Chief complaint: Fall Stated complaint: fall, knee deformity Time Seen by Provider: 07/09/21 13:14 Source: patient Mode of arrival: EMS History of Present Illness HPI narrative: 86-year-old female status post fall 2 days ago. Patient states she was getting into a van lost her footing was lowered slowly to the ground, but sustained knee pain at the time. Patient states she had an x-ray of her knee and was told that her knee was possibly fractured. However patient states she did not fall onto her knee she was actually lowered slowly to the ground when she lost her footing. Patient denies other injury, no LOC, patient has pain in the anterior knee leading to the lateral knee. Worse with movement, improved with rest. States knee pain is sharp and nonradiating. Patient does not complain of joint swelling or deformity. She is currently partially weightbearing and is in physical therapy and can walk 100 yards with assistance. No other complaints. Related Data Home Medications Medication Instructions Recorded Confirmed polyethylene glycol 3350 [Miralax] 17 g PO DAILY PRN 08/15/20 03/16/21 torsemide 20 mg PO DAILY 08/15/20 03/16/21 insulin lispro 100 unit/mL See Rx Instructions .ROUTE .COMPLEX 09/29/20 03/16/21 subcutaneous pen omeprazole 20 mg capsule,delayed 20 mg PO DAILY cap 11/05/20 03/16/21 release Basaglar KwikPen U-100 Insulin 7 unit SUBCUT DAILY 11/23/20 03/16/21 Systane (PF) 2 drp EACH EYE BID 03/16/21 03/16/21 acetaminophen 1,000 mg PO Q6H PRN 03/16/21 03/16/21 acidophilus-pectin, citrus 2 cap PO DAILY 03/16/21 03/16/21 buprenorphine 1 patch TRANSDERMAL Q7D 03/16/21 03/16/21 diphenhydramine HCl [Banophen] 25 mg PO BID PRN 03/16/21 03/16/21 docusate sodium 100 mg PO Q12HR PRN 03/16/21 03/16/21 glucagon 1 mg SUBCUT Q30M PRN 03/16/21 03/16/21 latanoprost 1 drp EACH EYE DAILY 03/16/21 03/16/21 sertraline 75 mg PO DAILY 03/16/21 03/16/21 Allergies Allergy/AdvReac Type Severity Reaction Status Date / Time ciprofloxacin Allergy Unknown Anxiety Verified 06/23/21 14:25 dexamethasone Allergy Unknown Anxiety Verified 06/23/21 14:25 hydrochlorothiazide Allergy Unknown Anxiety Verified 06/23/21 14:25 triamterene Allergy Unknown Anxiety Verified 06/23/21 14:25 tramadol Allergy Unknown Verified 06/23/21 14:25 Review of Systems Review of Systems: CONSTITUTIONAL: Denies fever, chills, or sweats. EYES: Denies visual changes, redness, or discharge. ENT: Denies rhinorrhea, congestion, sore throat, or otalgia. CARDIOVASCULAR: Denies chest pain, palpitations, or edema. RESPIRATORY: Denies cough or dyspnea. GASTROINTESTINAL: Denies abdominal pain, nausea, vomiting, or diarrhea. GENITOURINARY: Denies dysuria or hematuria. SKIN: Denies rash or itching. MUSCULOSKELETAL: chronic back pain, complains of L knee pain NEUROLOGIC: Denies headache, numbness, or new onset weakness. PSYCHIATRIC: Denies anxiety or depression. [facility] Past Medical History Medical History Aortic stenosis Benign essential hypertension Burst fracture of lumbar vertebra with routine healing CAD in [place] artery Heart murmur History of breast cancer Hx of Crohn's disease Lumbar pain with radiation down right leg Mixed hyperlipidemia Nonrheumatic aortic (valve) stenosis Osteoporosis Overflow incontinence Peripheral neuropathy Post menopausal problems Pulmonary embolism Type 2 diabetes mellitus with diabetic polyneuropathy Type 2 diabetes mellitus with hyperglycemia, with long-term current use of insulin (~1979) Surgical History Surgical History History of vertebroplasty (~10/07/20) L1 burst fracture - Dr Rosario at [place] Family History Family History Grandparent Diabetes mellitus Father Hypertension Cerebrovascular accident Mother Family history of ar
== END 2021-07-09 16:00 ==
LOC: ANHED 14:17
PROVIDERS: Emergency Provider Emergency Medicine; PCP Family Medicine
DX: S89.92XA Unspecified injury of left lower leg, initial encounter (principal); M17.12 Unilateral primary osteoarthritis, left knee; I35.0 Nonrheumatic aortic (valve) stenosis; I10 Essential (primary) hypertension; I25.10 Atherosclerotic heart disease of native coronary artery without angina pectoris; E11.42 Type 2 diabetes mellitus with diabetic polyneuropathy; E78.2 Mixed hyperlipidemia; K50.90 Crohn's disease, unspecified, without complications; M81.0 Age-related osteoporosis without current pathological fracture; Z79.4 Long term (current) use of insulin; W01.0XXA Fall on same level from slipping, tripping and stumbling without subsequent striking against object, initial encounter
CPT/HCPCS: 73562; 99283

== ENCOUNTER 2021-07-26 10:50 | Outpatient (CLI) | payer MEDICARE, SELFPAY ==
--- NOTE | ~2021-07-26 | MR_ITS ---
EXAMINATION: MR lumbar spine wo con DATE: 07/26/2021 12:19 INDICATION: Low back pain. TECHNIQUE: Magnetic resonance imaging (MRI) of the lumbar spine was performed without intravenous con trast. Sequences included sagittal T2-weighted FSE, sagittal T2-weighted FS FSE, sagittal T1-weighted FSE, and axial T2-weighted FSE. COMPARISON: Lumbar spine MRI 03/17/2021 FINDINGS: There is 4 degrees levocurvature of lumbar spine. There is 5 mm anterolisthesis of L4 on L5 and 3 mm anterolisthesis of L5 on S1. There is 3 mm retrolisthesis of L2 on L3. There are chronic co mpression fractures of T12 and L2 with changes of vertebroplasty. There is a burst fracture of L1 wit h retropulsion of bone 7 mm into central spinal canal, severe central canal stenosis, and focal kypho sis. There are changes of vertebroplasty at L1. There is moderately decreased disc height at T12-L1, mildly decreased disc height at L1-L2, severely decreased disc height at L2-L3, L3 on L4, L4-L5, and L5-S1 with endplate remodeling. The distal spinal cord signal intensity is normal. The conus medullar is is at L1. There are cysts in the kidneys measuring up to 3.8 cm on the left. The following disc le vels are specifically discussed: T12-L1: The disc is bulging. There is severe bilateral facet joint osteoarthritis. There is moderate bilateral neural foraminal stenosis. There is mild central canal stenosis. L1-L2: The disc does not extend beyond the endplate margin. There is mild bilateral facet joint osteo arthritis. There is moderate right and mild left neural foraminal stenosis. There is mild central can al stenosis. L2-L3: The disc does not extend beyond the endplate margin. There is mild bilateral facet joint osteo arthritis. There is mild bilateral neural foraminal stenosis. There is mild central canal stenosis. L3-L4: The disc is bulging. There is severe bilateral facet joint osteoarthritis. There is mild right and moderate left neural foraminal stenosis. There is mild central canal stenosis. L4-L5: The disc does not extend beyond the endplate margin. There is severe bilateral facet joint ost eoarthritis. There is mild right and moderate left neural foraminal stenosis. There is mild central c anal stenosis. L5-S1: The disc does not extend beyond the endplate margin. There is severe bilateral facet joint ost eoarthritis. There is mild bilateral neural foraminal stenosis. There is no central canal stenosis. IMPRESSION: 1. Severe lumbar spondylosis, stable from 07/17/2021. 2. L1 burst fracture with changes of vertebroplasty and severe central canal stenosis, stable from 07/2021. Reviewed, dictated and finalized at location A. IMPRESSION: 1. Severe lumbar spondylosis, stable from 07/17/2021. 2. L1 burst fracture with changes of vertebroplasty and severe central canal st enosis, stable from 03/17/2021.
--- NOTE | ~2021-07-26 | MR_ITS ---
EXAMINATION: MR knee LT wo con DATE: 07/26/2021 12:19 INDICATION: Increased left knee pain. TECHNIQUE: Magnetic resonance imaging (MRI) of the left knee was performed without intravenous contra st. Sequences included coronal PD-weighted FSE, coronal PD-weighted FS FSE, sagittal T2-weighted FSE , sagittal PD-weighted FS FSE and axial PD weighted fat saturated FSE. COMPARISON: None. FINDINGS: Medial compartment: Complex tear of the posterior horn of the medial meniscus with both a longitudinal vertical tear plan e extending to the inferior articular surface as well as a small radial tear involving the inner thir d at the central aspect of the posterior horn. Small region of partial-thickness chondral ulceration along the anteromedial aspect of the weightbearing medial femoral condyle. Lateral compartment: Longitudinal horizontal tear plane extending to the superior articular surface of the body and anteri or horn of the lateral meniscus. Partial-thickness chondral ulceration along the central to posterior weightbearing lateral femoral condyle. Patellofemoral compartment: Deep chondral ulceration with cortical irregularity and subarticular edema and mild cystic change thr oughout the lateral patellar facet and involving portions of the apical ridge and lateral side of the medial facet. Similar deep chondral ulceration with minimal cortical irregularity and a few tiny foc i of subarticular edema at the lateral trochlea extending to the trochlear groove. Less severe partia l thickness cartilage loss without degenerative subchondral changes at the medial trochlea. Ligaments and tendons: Anterior and posterior cruciate ligaments are normal. The medial collateral ligament and fibular ben ateral ligament complex are normal. Patellar tendon is normal. Mild quadriceps and semimembranosus te ndinopathy without discrete tear. The remaining medial and lateral hamstring tendons as well as the i liotibial band are normal. Fluid: Small joint effusion and mild synovitis at the suprapatellar pouch. No loose osteochondral bodies lucy ntified. Moderate-sized Brooks's cyst measuring 5.9 x 2.2 x 1.2 cm. Osseous/other: There is marrow edema along the posterior aspect the medial tibial plateau surrounding a linear nondi splaced low signal intensity fracture plane which underlies the posterior horn of the medial meniscus . There is additional marrow edema along the posterior rim of the lateral tibial plateau and along th e posterior margin of the weightbearing medial femoral condyle consistent with bone contusions withou t definitive fracture lines. No pathologic marrow replacing process. IMPRESSION: 1. Nondisplaced fracture along the posterior rim of the medial tibial plateau and bone contusions at the posterior margin of the medial femoral condyle and posterior rim of the lateral tibial plateau. 2. Medial and lateral meniscal tears. 3. Tricompartmental osteoarthritis, moderate to severe at the patellofemoral compartment and mild in the medial and lateral compartments. 4. Moderate-sized Brooks's cyst. Reviewed, dictated and finalized at location A. IMPRESSION: 1. Nondisplaced fracture along the posterior rim of the medial tibial plateau a nd bone contusions at the posterior margin of the medial femoral condyle and po sterior rim of the lateral tibial plateau. 2. Medial and lateral meniscal tears. 3. Tricompartmental osteoarthritis, moderate to severe at the patellofemoral co mpartment and mild in the medial and lateral compartments. 4. Moderate-sized Brooks's cyst.
== END 2021-07-26 10:51 | disposition home or self-care (01) ==
LOC: ANHIMG 10:58
PROVIDERS: PCP Family Medicine; Visit Provider Family Medicine
DX: M17.12 Unilateral primary osteoarthritis, left knee (principal); M71.22 Synovial cyst of popliteal space [Baker], left knee; S82.145A Nondisplaced bicondylar fracture of left tibia, initial encounter for closed fracture; X58.XXXA Exposure to other specified factors, initial encounter; M47.896 Other spondylosis, lumbar region
CPT/HCPCS: 72148; 73721

== ENCOUNTER → 2021-10-24 09:41 | Outpatient (CLI) | payer MEDICARE, SELFPAY ==
--- NOTE | ~2021-10-24 | CT_ITS ---
EXAMINATION: CT diagnostic chest w con EXAM DATE: 10/24/2021 10:22 INDICATION: Lung nodule . History breast cancer. TECHNIQUE: Spiral CT of the chest following intravenous injection of 75 mL Omnipaque 350. Axial, cor onal and sagittal images of the chest were reviewed. Coronal maximum intensity pixel images of chest reviewed. The dose-length product (DLP) for this examination was 252.45 mGy-cm. The exposure was t ailored according to patient size (auto mA exposure control), and iterative reconstruction (ASIR) was used as additional dose reduction technique. Correlation is made to CT thoracolumbar spine 0. FINDINGS: Some scattered lung groundglass opacities, appearance most consistent with sequela from pr ior COVID pneumonia, but not specific for that. There is a round left upper lobe nodule anteriorly measuring 9 mm, is identified on a prior CT thorac olumbar spine from 2019, and is unchanged consistent with benign histology, noncalcified granuloma or hamartoma. There is right upper lobe soft tissue density measuring 1.4 cm diameter by 6 mm in thickness, could b e postinfectious, was not present in 2019. There are no pleural or pericardial effusions. Tracheobr onchial tree is patent. There is no mediastinal, hilar or axillary lymphadenopathy. There is no p neumothorax. There is mild cardiomegaly. No central pulmonary emboli. There are dense coronary arteries, could be severe coronary arterial sclerosis and/or coronary artery stent(s), which are difficult to distinguish due to cardiac motion on this non-gated exam. Correlate with cardiac history and consider cardiology consult if not recently evaluated. Low-density right a drenal mass consistent with adenoma. Left renal cysts. Cystic right breast mass previously described as chronic seroma. Interval development of treated mild to moderate compression fracture of T12. Pre viously seen L1 burst fracture has also been injected with methylmethacrylate. IMPRESSION: 1. Indeterminate right upper lobe density, could be postinfectious given it is relatively flat in sh ape, and given the other scattered densities which is most consistent with sequela from prior pneumon ia. Consider 3 month follow-up chest CT. 2. Left upper lobe round noncalcified granuloma unchanged. 3. Other chronic findings. Reviewed, dictated and finalized at location G. R EXPERT IMPRESSION: 1. Indeterminate right upper lobe density, could be postinfectious given it is relatively flat in shape, and given the other scattered densities which is mos t consistent with sequela from prior pneumonia. Consider 3 month follow-up ches t CT. 2. Left upper lobe round noncalcified granuloma unchanged. 3. Other chronic findings.
[2021-10-24 10:02] LABS: Estimated Glomerular Filt Rate 33
== END ==
PROVIDERS: PCP Family Medicine; Visit Provider Family Medicine
DX: R91.1 Solitary pulmonary nodule (principal)
CPT/HCPCS: 71260; Q9967

== ENCOUNTER 2022-04-05 12:20 | Outpatient (CLI) | payer MEDICARE, SELFPAY ==
--- NOTE | ~2022-04-05 | XR_ITS ---
XR thoracic spine 3V DATE: 04/05/2022 13:48 INDICATION: Back pain, lumbar radicular pain. TECHNIQUE: AP, lateral and swimmer views COMPARISON: CT thoracic lumbar spine FINDINGS: There is diffuse osteopenia. There is severe degenerative disc disease at C5-6 and C6-7. There is mild upper thoracic levoscoliosis and moderate lower thoracic dextroscoliosis. There is vertebroplasty at at least several contiguous thoracolumbar vertebral bodies, including T12, severe burst fracture of L1 that was present , in addition to L2 compression fracture that was present 10/01/2020. There are spacer devices at L1. There is degenerative change of the thoracic spine. IMPRESSION: Burst fracture at L1, compression fracture at L2 Vertebroplasty at T12, L1, L2 Osteopenia Mild degenerative spurring of the thoracic spine Thoracic scoliosis Reviewed, dictated and finalized at location B.
--- NOTE | ~2022-04-05 | MR_ITS ---
EXAMINATION: MR lumbar spine wo con DATE: 04/05/2022 13:27 INDICATION: Chronic lumbar burst fracture presenting with 2 weeks of progressively worsening low back pain TECHNIQUE: Magnetic resonance imaging (MRI) of the lumbar spine was performed without intravenous con trast. Sequences included sagittal T2-weighted FSE, sagittal T2-weighted FS FSE, sagittal T1-weighted FSE, and axial T2-weighted FSE. COMPARISON: 07/26/2021 FINDINGS: No interval change in a 4 mm retrolisthesis L2 on L3, 5 mm anterolisthesis L4 on L5 and 3 mm anteroli sthesis L5 on S1. 9 degrees levocurvature centered at L2-L3. Focal kyphosis at a chronic L1 burst fra cture with unchanged 7 mm retropulsion of bone into the central canal and central vertebral plana. Lo w signal intensity change of prior vertebroplasty anteriorly at L1 as well as at the T12 and L2 verte bral bodies with 25% left anterior vertebral body height loss at T12 and 20% central vertebral body h eight loss with depression of the superior endplate at L2. There is a new T9 burst fracture with prom inent marrow edema in the vertebral body and horizontal low signal intensity fracture plane paralleli ng the inferior endplate and with 20% diffuse vertebral body height loss and 2 mm retropulsion on the inferior posterior wall of the vertebral body. Severe disc height loss at L2-L3 L4-L5 and L5-S1 with associated degenerative endplate changes. Suggestion of developing fusion along the right side of L2 -L3. Moderate disc height loss at T7-T8 and T8-T9. There is some ballooning of the central T12-L1 and L1-L2 disc spaces resulting from the previous noted compression and burst fractures. Severe posterio r disc height loss posteriorly at L3-L4 with relatively preserved anterior disc height. The conus med ullaris terminates at L2. There is normal signal in the caudal spinal cord. Bilateral T2 hyperintense renal cysts. Paravertebral soft tissues are unremarkable. The following disc levels are specifically discussed: T12-L1: Disc is mildly bulging. There is severe bilateral facet joint osteoarthritis. There is modera te left and moderate to severe right neural foraminal stenosis. There is mild central canal stenosis. There is severe central canal stenosis caudal to the level of the disc space at the level of the ret ropulsed posterior wall of L1. L1-L2: Disc is mildly bulging. There is mild bilateral facet joint osteoarthritis. There is moderate to severe right and mild left neural foraminal stenosis. There is mild central canal stenosis. L2-L3: Disc does not extend beyond the endplate margin. There is mild bilateral facet joint osteoarth ritis. There is mild left and moderate right neural foraminal stenosis. There is mild central canal s tenosis. L3-L4: Disc is bulging. There is severe bilateral facet joint osteoarthritis. There is mild right and moderate left neural foraminal stenosis. There is mild central canal stenosis. L4-L5: Disc is bulging with annular fissure. There is severe bilateral facet joint osteoarthritis. Th ere is moderate left and mild to moderate right neural foraminal stenosis. There is mild central aaron l stenosis. L5-S1: Disc is bulging. There is severe bilateral facet joint osteoarthritis. There is mild bilateral neural foraminal stenosis. There is no central canal stenosis. IMPRESSION: 1. Acute to subacute T9 burst fracture with 20% vertebral body height loss and 2 mm retropulsion. 2. Minimal progression of severe lumbar spondylosis. 3. Stable appearance of T12 and L2 compression fractures and severe L1 burst fracture with change of prior vertebroplasty and with retropulsion at L1 resulting in severe central canal stenosis. Reviewed, dictated and finalized at location A. IMPRESSION: 1. Acute to subacute T
--- NOTE | ~2022-04-05 | XR_ITS ---
XR lumbar spine 2-3V DATE: 04/05/2022 13:48 INDICATION: Lumbar radicular pain TECHNIQUE: AP, lateral, coned lateral lumbosacral views COMPARISON: None FINDINGS: Osteopenia. Status post vertebroplasty at T12, L1 and L2. There is mild compression fracture T12, severe burst fracture at L1 and mild compression fracture L2. Devices are noted at L1. There is severe degenerative disc disease and approximately 5 mm retrolisthesis at L2-3. Moderately severe degenerative disc disease at L3-4, L4-5 and severe degenerative disc disease at L5- S1. There is degenerative change at the apophyseal joints of the mid and lower lumbar spine, with associa norris 8 mm grade 1 anterolisthesis at L4-5 and minimal grade 1 anterolisthesis at L5-S1. Extensive calcification of the abdominal aorta, without apparent aneurysm. Degenerative change at the sacroiliac joints. IMPRESSION: Compression fractures of T12 and L2 and severe burst fracture deformity of L1 Status post vertebroplasty at all 3 of these vertebrae with spacer devices noted at L1 Prominent degenerative change of lumbar spine including multilevel degenerative disc disease, most se bo at L2-3 (with associated L2-3 retrolisthesis) and L5-S1, in addition to degenerative changes apo physeal joints with grade 1 anterolisthesis at L4-5 and L5-S1 Reviewed, dictated and finalized at location B. IMPRESSION: Compression fractures of T12 and L2 and severe burst fracture defor mity of L1 Status post vertebroplasty at all 3 of these vertebrae with spacer devices note d at L1 Prominent degenerative change of lumbar spine including multilevel degenerative disc disease, most severe at L2-3 (with associated L2-3 retrolisthesis) and L5 -S1, in addition to degenerative changes apophyseal joints with grade 1 anterol isthesis at L4-5 and L5-S1
== END 2022-04-05 12:21 | disposition home or self-care (01) ==
PROVIDERS: PCP Family Medicine; Visit Provider Nurse Practitioner Family
DX: S22.071A Stable burst fracture of T9-T10 vertebra, initial encounter for closed fracture (principal); Z98.1 Arthrodesis status; M47.25 Other spondylosis with radiculopathy, thoracolumbar region; M48.05 Spinal stenosis, thoracolumbar region; M47.27 Other spondylosis with radiculopathy, lumbosacral region; M48.07 Spinal stenosis, lumbosacral region; S32.021A Stable burst fracture of second lumbar vertebra, initial encounter for closed fracture; S32.011A Stable burst fracture of first lumbar vertebra, initial encounter for closed fracture; M47.818 Spondylosis without myelopathy or radiculopathy, sacral and sacrococcygeal region; M41.9 Scoliosis, unspecified
CPT/HCPCS: 72072; 72100; 72148

== ENCOUNTER → 2022-05-17 12:41 | Outpatient (CLI) | payer MEDICARE, SELFPAY ==
--- NOTE | ~2022-05-17 | XR_ITS ---
XR thoracic spine 3V DATE: 05/17/2022 13:49 INDICATION: Thoracic and lumbar pain. History of vertebral fractures TECHNIQUE: AP, lateral and swimmer views COMPARISON: 04/05/2022 thoracic spine 11/17/2020 MR thoracic spine FINDINGS: Prominent diffuse osteopenia. Interval compression fractures of T9 and T10 since , with moderate loss of height and mild anterior wedging of T9 and cupping of the superior vertebral endplate of T10. Status post vertebroplasty at burst fracture of T12. Vertebroplasty at L1 and L2. Levoscoliosis of the upper thoracic spine and dextroscoliosis of the lower thoracic spine. 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
--- NOTE | ~2022-05-17 | XR_ITS ---
XR lumbar spine 2-3V DATE: 05/17/2022 13:49 INDICATION: Lumbosacral back pain TECHNIQUE: AP, lateral, coned lateral lumbosacral views COMPARISON: 04/05/2022 lumbar spine 05/17/2022 CT lumbar spine FINDINGS: There is prominent diffuse osteopenia. Status post vertebroplasty at T12, L1 and L2 fractures. Spacer devices are noted at L1 severe burst f racture deformity, with compromise of the AP dimension of the thoracic spinal canal.. Severe degenerative disc disease and approximately 3 mm retrolisthesis at L2-3. Moderate degenerative disc disease at L3-4 and severe degenerative disc disease at L4-5 and L5-S1 L4- 5 and L5-S1. 5 mm grade 1 anterolisthesis at L4-5. Sacroiliac joints are intact. There is calcification of the abdominal aorta and iliac arteries. . IMPRESSION: No significant change since 04/05/2022 is detected Reviewed, dictated and finalized at location B.
--- NOTE | ~2022-05-17 | CT_ITS ---
EXAMINATION: CT lumbar spine wo con DATE: 05/17/2022 13:24 INDICATION: Lumbago. TECHNIQUE: Computed tomography (CT) of the lumbar spine was performed without intravenous contrast. A utomated exposure control and iterative reconstruction technique were employed. The dose-length produ ct was 545.00 mGy-cm. COMPARISON: CT lumbar spine 10/01/2020 FINDINGS: There is a chronic 2.4 cm mass in right adrenal gland measuring low attenuation, consistent with an adenoma. There is 7 degrees levocurvature of lumbar spine. There is a chronic compression fr acture of T12 with 1/5 loss of height and changes of vertebroplasty. There is a chronic burst fractur e of L1 with greater than 4/5 loss of height, retropulsion of bone 6 mm into central spinal canal, fo ze kyphosis, and changes of vertebroplasty. There is a chronic compression fracture of L2 with 1/5 l oss of height and changes of vertebroplasty. There is 6 mm retrolisthesis of L2 on L3, 6 mm anterolis thesis of L4 on L5, and 4 mm anterolisthesis of L5 on S1. There is moderately decreased disc height a t T12-L1 and mildly decreased disc height at L1-L2 with bridging endplate osteophytes at these levels . There is severely decreased disc height at L2-L3 with interbody fusion. There is severely decreased disc height from L3-L4 through L5-S1 with endplate remodeling. There is Baastrup disease at L2-L3, L 3-L4, and L4-L5. The following disc levels are specifically discussed: L1-L2: The disc does not extend beyond the endplate margin. There is mild bilateral facet joint osteo arthritis. There is moderate right and mild left neural foraminal stenosis. There is mild central can al stenosis. L2-L3: The disc is bulging. There is mild bilateral facet joint osteoarthritis. There is mild bilater al neural foraminal stenosis. There is mild central canal stenosis. L3-L4: The disc is bulging. There is mild bilateral facet joint osteoarthritis. There is mild bilater al neural foraminal stenosis. There is mild central canal stenosis. L4-L5: The disc is bulging. There is severe bilateral facet joint osteoarthritis. There is moderate b ilateral neural foraminal stenosis. There is mild central canal stenosis. L5-S1: The disc is bulging. There is severe bilateral facet joint osteoarthritis. There is mild bilat eral neural foraminal stenosis. There is mild central canal stenosis. IMPRESSION: 1. Severe lumbar spondylosis. 2. Anterior fusion from T12 to L3. Reviewed, dictated and finalized at location A.
--- NOTE | ~2022-05-17 | CT_ITS ---
EXAMINATION: CT thoracic spine wo con DATE: 05/17/2022 13:24 INDICATION: Thoracic back pain. TECHNIQUE: Computed tomography (CT) of the thoracic spine was performed without intravenous contrast. Automated exposure control and iterative reconstruction technique were employed. The dose-length pro duct was 644.91 mGy-cm. COMPARISON: Thoracic spine CT 10/01/2020 FINDINGS: There is 15 degrees levoscoliosis of thoracic spine. There is a chronic compression fractur e of T12 with changes of vertebroplasty. There is a burst fracture of inferior endplate of T9 with 1/ 5 loss of height and retropulsion of bone 3 mm into central spinal canal. There is a burst fracture o f T10 with 1/5 loss of height. There is severe cervical spondylosis. There is mildly to moderately de creased disc height from T3-T4 through T8-T9 and severely decreased disc height at T9-T10. There is m ultilevel facet joint osteoarthritis, mild at most levels. On the right, there is mild neural foramin al stenosis at T2-T3 and T9-T10. On the left, there is mild neural foraminal stenosis at T1-T2, T2-T3 , and T9-T10. There is mild central canal stenosis at T7-T8 and T9-T10. IMPRESSION: 1. T9 and T10 burst fractures, new from 10/01/2020, likely subacute. 2. Moderate thoracic spondylosis. 3. Thoracic levoscoliosis. Reviewed, dictated and finalized at location A.
== END ==
PROVIDERS: PCP Family Medicine; Visit Provider Nurse Practitioner Family
DX: M54.50 Low back pain, unspecified (principal); M47.814 Spondylosis without myelopathy or radiculopathy, thoracic region; S22.071A Stable burst fracture of T9-T10 vertebra, initial encounter for closed fracture; M41.84 Other forms of scoliosis, thoracic region; M47.816 Spondylosis without myelopathy or radiculopathy, lumbar region; Z98.1 Arthrodesis status; M85.88 Other specified disorders of bone density and structure, other site
CPT/HCPCS: 72072; 72100; 72128; 72131